=== PATIENT | female | born 1995 | race Caucasian/White ===

== ENCOUNTER → 2020-01-11 15:17 | Outpatient (BNVA) | payer OTHER, SELFPAY | PROVIDERS: PCP Family Medicine; Referring Provider Family Medicine; Visit Provider Physician Assistant | DX: R10.13 Epigastric pain (principal) | CPT/HCPCS: 99203 ==

== ENCOUNTER 2020-02-12 13:54 | Emergency (ER) | payer OTHER, SELFPAY ==
[2020-02-12 14:38] VITALS: BP 120/87; PULSE 80; RESP 18; TEMP 36.7; O2SAT 100; BMI 33.0
--- NOTE | 2020-02-12 14:47 | ED_ITS ---
HPI - Head Injury General Chief complaint: Head Injury Stated complaint: HEAD INJ FELL DOWN STAIRS Time Seen by Provider: 02/12/20 14:39 Source: patient Mode of arrival: ambulatory Limitations: no limitations History of Present Illness HPI Narrative: 24-year-old female previously healthy here with headache status post mechanical fall today. Patient tells me she was the top of the stairs and had trip and fall falling down approximately 10 stairs and hitting her head at the bottom of the wood floor. Denies loss of consciousness. Denies pain. Tells me she continues to have a headache despite some giving it some time at home so she brought herself into the emergency department. She denies any nausea, vomiting, dizziness, vision changes. No previous history of concussions. MD Complaint: head injury Onset (ago): hour(s) Mechanism of Injury: fall Place: home Loss of Consciousness: no Location of injury: other (unsure ) Severity: moderate Quality: aching Radiation: none Other Injuries: none Context: other (none ) Associated symptoms: denies other symptoms Related Data Previous Rx's Medication Instructions Recorded dicyclomine 10 mg capsule 10 mg PO BID #60 cap 01/11/20 Allergies Allergy/AdvReac Type Severity Reaction Status Date / Time No Known Allergies Allergy Verified 02/12/20 14:42 [No Known Allergies*] Review of Systems Review of Systems: Yes all other systems are reviewed and are negative Constitutional: Constitutional: Reports no additional constitutional complaints, Denies body ache(s), Denies chills, Denies fever(s), Reports headache(s) and Denies weakness Eyes: Eyes: Reports no additional eye complaints and Denies change in vision ENT: Reports system reviewed and no additional complaints, except as documented, Denies dizziness, Reports headache(s), Denies nasal congestion, Denies nasal discharge and Denies neck pain Cardiovascular: Cardiovascular: Reports no additional cardiovascular complaints, Denies chest pain, Denies leg edema and Denies dyspnea Respiratory: Respiratory: Reports no additional respiratory complaints, Denies cough and Denies dyspnea Gastrointestinal: Gastrointestinal: Reports no additional gastrointestinal complaints, Denies abdominal pain, Denies diarrhea, Denies nausea and Denies vomiting Genitourinary: Genitourinary: Reports no additional female genitourinary complaints and Denies urinary incontinence Musculoskeletal: Musculoskeletal: Reports no additional musculoskeletal complaints, Denies back pain, Denies arthralgias, Denies joint swelling, Denies neck pain, Denies numbness and Denies tingling Integumentary/Breasts: Skin/Breast: Reports system reviewed and no additional complaints, except as docu and Denies rash Neurologic: Reports system reviewed and no additional complaints, except as documented, Denies Abnormal speech present, Denies dizziness, Reports hea dache(s), Denies numbness, Denies tingling and Denies weakness PMFSH Past Medical History Attestation statement: The following information was validated with the patient. Source: old records reviewed and nursing notes reviewed Medical History Abdominal pain Juvenile arthritis Family History Family History Father Unknown family medical history Mother No problems noted. 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 Physical Exam Vital Signs: Vital Signs: Last Vital Signs Temp 98.0 F 02/12/20 14:38 Pulse 70 02/12/20 15:52 Resp 18 02/12/20 15:52 BP 115/70 02/12/20 15:52 Pulse Ox 100 02/12/20 15:52 Body Mass Index 33.0 Const: General: cooperative, healthy appearing, comfortable and no acute distress Orientation/consciousness: patient oriented x3 Limitations: no limitations HENMT: Head: Yes normal to inspection Ears: hearing grossly normal bilaterally General nose exam: Normal external nose present Face and sinus: Yes normal facial exam Mouth: Normal oral and palatal mucosa present Throat: Yes posterior oropharynx normal Eyes: General: appearance normal, both eyes and all related structures Pupils: Equal, round and reactive pupils present Neck: Neck: Yes normal visual inspection Chest: Chest palpation & inspection: normal inspection of the chest Resp: Effort & Inspection: normal respiratory effort Auscultation: clear to auscultation bilaterally Cardio: Rate: regular rate Rhythm: regular rhythm Peripheral pulses: Peripheral pulses 2+ throughout GI: Inspection: Yes normal to inspection Palpation (GI): Soft to palpation and nontender Auscultation: normal bowel sounds Back/Spine/Pelvis: Thoracic/Lumbar Spine: thoracic and lumbar spine normal to inspection Skin: General skin exam: no rashes or lesions noted Neuro: General: patient oriented x3, Normal light touch and pain sensation, no focal motor deficits and normal sensation to monofilament Cranial nerves: Yes CN's II-XII intact bilaterally, Yes Equal, round and reactive pupils present, Yes Bilaterally intact EOM present, Yes Nystagmus not present, Yes Normal facial strength present and Yes Midline tongue present Cognition (Neuro): normal cognition Speech: No Abnormal speech present Gait exam (Neuro): Normal gait present Motor exam (neuro): 5/5 motor strength present throughout Sensory Exam: Normal double simultaneous stimulation for sensation Coordination: [id number] test normal, [id number] test normal and tandem gait normal Extrem: General: Yes normal to inspection Course Course Course Narrative: 24-year-old female here with headache after mechanical fall hitting her head. Will check CT head. Will need urine prior to imaging. 1600- imaging negative. Likely contusion. Reviewed worrisome signs and symptoms with head injury care. Comfortable discharge home. MDM - Head Injury MDM Narrative Medical decision making narrative: Contusion, concussion, ICH Medical Records Attestation: I reviewed the patient's medical records. Lab Data Attestation: I reviewed the patient's lab results. Labs: Lab Results 02/12/20 Range/Units 15:00 Urine Test NEGATIVE (NEGATIVE) Imaging Data CT scan - head: Attestation: I personally reviewed and interpreted this imaging study as follows: Radiologist's impression: EXAMINATION: CT HEAD WITHOUT CONTRAST CLINICAL INFORMATION: Fall, trauma. COMPARISON: None TECHNIQUE: Contiguous axial imaging was performed from the skull base to vertex without intravenous administration of contrast. This CT examination was performed using dose optimization techniques as appropriate, variously including the following: *Automated exposure control *Adjustment of mA and/or kV according to patient size (this includes techniques or standardized protocols for targeted exams where dose is matched to indication/reason for exam; i.e. extremities or head) *Use of iterative reconstruction technique DLP: 717 mGy-cm FINDINGS: There is no evidence of acute intracranial hemorrhage or territorial infarction. No abnormal mass effect or midline shift is seen. Miller to white matter differentiation is well preserved. No extra-axial fluid collections are identified. The ventricles are normal in size. There is no abnormal attenuation within the brain parenchyma. The osseous structures and soft tissues are normal. There is mild mucoperiosteal thickening left maxillary sinus. Rest of the paranasal sinuses are well expanded and clear. No scalp abnormality seen. CT/CT head/brain wo con IMPRESSION: No acute intracranial process seen. Mild left maxillary sinus inflammatory changes. Discharge Plan Discharge Clinical Impression: Closed head injury Patient Disposition: Home, Self-Care Instructions: Head Injury (ED) Additional Instructions: Limit screen time. Get plenty of rest in a cold dark room Take Motrin or Tylenol as needed for pain Follow-up with her primary care doctor at the end of the week if still continued to have symptoms Prescriptions: No Action dicyclomine 10 mg capsule 10 mg PO BID Qty: 60 RF: 3 Referrals: Arun Hart MD [Primary Care Provider] - 2 days Stand Alone Forms: Work/School Release
[2020-02-12 15:16] LABS: UPreg QC Valid YES; Urine Pregnancy NEGATIVE (NEGATIVE)
--- NOTE | 2020-02-12 15:19 | CT_ITS ---
EXAMINATION: CT HEAD WITHOUT CONTRAST CLINICAL INFORMATION: Fall, trauma. COMPARISON: None TECHNIQUE: Contiguous axial imaging was performed from the skull base to vertex without intravenous administration of contrast. This CT examination was performed using dose optimization techniques as appropriate, variously including the following: *Automated exposure control *Adjustment of mA and/or kV according to patient size (this includes techniques or standardized protocols for targeted exams where dose is matched to indication/reason for exam; i.e. extremities or head) *Use of iterative reconstruction technique DLP: 717 mGy-cm FINDINGS: There is no evidence of acute intracranial hemorrhage or territorial infarction. No abnormal mass effect or midline shift is seen. Miller to white matter differentiation is well preserved. No extra-axial fluid collections are identified. The ventricles are normal in size. There is no abnormal attenuation within the brain parenchyma. The osseous structures and soft tissues are normal. There is mild mucoperiosteal thickening left maxillary sinus. Rest of the paranasal sinuses are well expanded and clear. No scalp abnormality seen. CT/CT head/brain wo con IMPRESSION: No acute intracranial process seen. Mild left maxillary sinus inflammatory changes.
[2020-02-12 15:52] VITALS: BP 115/70; PULSE 70; RESP 18; O2SAT 100
--- NOTE | 2020-02-12 15:53 | PC.NURSE ---
awiaiting ct results. pt denies need for pain control at this time
== END 2020-02-12 16:23 | disposition home or self-care (01) ==
PROVIDERS: Nurse Practitioner Family; Emergency Provider Emergency Medicine Emergency Medical Services; PCP Family Medicine
DX: S09.90XA Unspecified injury of head, initial encounter (principal); G44.309 Post-traumatic headache, unspecified, not intractable; W10.9XXA Fall (on) (from) unspecified stairs and steps, initial encounter; Y93.9 Activity, unspecified; Y92.009 Unspecified place in unspecified non-institutional (private) residence as the place of occurrence of the external cause; Y99.9 Unspecified external cause status
CPT/HCPCS: 70450; 81025; 99284

== ENCOUNTER 2020-03-13 14:13 | Outpatient (REF) | payer OTHER, SELFPAY ==
[2020-03-13 15:56] LABS: HCG Quantitative < 2 mIU/mL; TSH reflex Free T4 1.46 mIU/mL (0.32-4.0)
== END 2020-03-13 14:14 | disposition home or self-care (01) ==
LOC: HO.LAB 14:13
PROVIDERS: Visit Provider Family Medicine
DX: R79.89 Other specified abnormal findings of blood chemistry (principal)
CPT/HCPCS: 84443; 84702

== ENCOUNTER 2020-04-17 11:13 | Outpatient (REF) | payer OTHER, SELFPAY ==
[2020-04-17 13:45] LABS: Syphilis Screen Nonreactive (Nonreactive)
[2020-04-18 04:45] LABS: HBc Num1 0.06 S/CO (0.00-0.79); HIV AB/AG Nonreactive (Nonreactive); HIV Num 1 0.06 S/CO (0.00-0.99); Hepatitis B Core Antibody Nonreactive (Nonreactive); ~HepC Num1 0.09 S/CO (0.00-0.79); ~Hepatitis C Antibody Nonreactive (Nonreactive)
[2020-04-18 10:27] LABS: C. trachomatis RNA TMA NOT DETECTED (NOT DETECTED); N. gonorrhoeae RNA TMA NOT DETECTED (NOT DETECTED)
== END 2020-04-17 11:14 | disposition home or self-care (01) ==
LOC: HO.LAB 11:13
PROVIDERS: PCP Family Medicine; Visit Provider Advanced Practice Midwife
DX: Z01.419 Encounter for gynecological examination (general) (routine) without abnormal findings (principal); Z11.3 Encounter for screening for infections with a predominantly sexual mode of transmission
CPT/HCPCS: 36415; 86704; 86780; 86803; 87389; 87491; 87591; 88142

== ENCOUNTER 2020-09-04 09:07 | Outpatient (REF) | payer OTHER, SELFPAY ==
[2020-09-05 08:58] LABS: Rubella IgG Antibody 1.82 Index; Rubeola IgG (Measles) >300.00 AU/mL
== END 2020-09-04 09:08 | disposition home or self-care (01) ==
LOC: HO.WFDLDS 09:07
PROVIDERS: Visit Provider Family Medicine
DX: Z01.84 Encounter for antibody response examination (principal)
CPT/HCPCS: 36415; 86735; 86762; 86765

== ENCOUNTER 2021-07-17 17:55 | Emergency (ER) | payer OTHER, SELFPAY ==
--- NOTE | 2021-07-17 | ECG_ITS ---
Test Reason : CHEST PAIN Blood Pressure : / mmHG Vent. Rate : 075 BPM Atrial Rate : 075 BPM P-R Int : 190 ms QRS Dur : 090 ms QT Int : 370 ms P-R-T Axes : 024 059 029 degrees QTc Int : 413 ms Normal sinus rhythm Possible Left atrial enlargement Borderline ECG When compared with ECG of 14-OCT-2019 10:49, No significant change was found Referred By: Generic ED Physician Electronically Signed By:DEBORAH HERNANDEZ
[2021-07-17 19:27] VITALS: BP 129/65; PULSE 77; RESP 16; TEMP 37.1; O2SAT 100; BMI 48.7
[2021-07-17 19:49] LABS: MANUAL DIFF FLAG NO
[2021-07-17 19:51] LABS: Basophils Percent Auto 0.3 % (0-2); Eosinophils Absolute Auto 0.3 X10*3/uL (0.0-0.4); Hematocrit 32.4 % (37.0-47.0); Hemoglobin 9.6 g/dl (12.0-16.0); Imm Gran Abs Auto 0.03 X10*3/uL (0.00-0.03); Imm Gran Pct Auto 0.3 % (0.0-0.4); Lymphocytes Absolute Auto 3.9 X10*3/uL (1.2-4.9); Lymphocytes Percent Auto 36.8 % (20-40); Mean Corpuscular HGB Conc 29.6 g/dl (31.0-35.0); Mean Corpuscular Volume 74.1 fL (80.0-98.0); Mean Platelet Volume 10.1 fL (9.4-12.3); Monocytes Absolute Auto 0.5 X10*3/uL (0.1-1.2); Monocytes Percent Auto 4.5 % (2-11); Neutrophils Absolute Auto 5.8 x10*3/uL (2.0-8.3); Neutrophils Percent Auto 55.1 % (45-73); Platelet Count 265 X10*3/uL (160-400); Red Blood Count 4.37 X10*6/uL (4.20-5.50); Red Cell Distribution Width 16.4 % (11.0-16.0); White Blood Count 10.5 X10*3/uL (4.8-10.8)
[2021-07-17 20:06] LABS: Appearance Urine HAZY; Color Urine YELLOW; Glucose Urine UA NEG (NEG); Leukocyte Esterase Urine 1+ (NEG); Nitrite Urine NEG (NEG); PH 6.5 (5.0-8.0); UACC Culture Trigger YES; Urine Blood NEG (NEG); Urine Ketones NEG (NEG); Urine Protein NEG (NEG-TRACE)
[2021-07-17 20:07] LABS: Anion Gap 11 (12-20); Blood Urea Nitrogen 18 mg/dL (9-16); Calcium 9.4 mg/dL (8.4-10.2); Carbon Dioxide 28 mmol/L (22-29); Chloride 106 mmol/L (96-108); Estimated Glomerular Filt Rate > 60; Glucose Random 94 mg/dL (60-115); Sodium 141 mmol/L (135-145)
[2021-07-17 20:10] LABS: Troponin-I High Sensitivity < 3.5 ng/L (<3.5-17.0)
--- NOTE | 2021-07-17 20:17 | ED_ITS ---
HPI - Chest Pain General Chief Complaint: Chest Pain Stated Complaint: multiple complaints Time Seen by Provider: 07/17/21 20:17 Source: patient Mode of arrival: ambulatory Limitations: no limitations History of Present Illness HPI narrative: Patient 5 weeks post complaining of pain during urination and moving bowels with small amount of bright blood when wipes also has mucoid discharge from vagina without significant smell patient has a grade 3 vaginal tear when having vaginal delivery is constipated no fever no chills no back pain no abdominal pain Related Data Previous Rx's Medication Instructions Recorded desogestrel 0.15 mg-ethinyl 1 tab PO DAILY PRN #28 tab 04/17/20 estradiol 0.03 mg tablet (Apri) fluticasone propionate 50 1 spray INTRANASAL DAILY 30 Days 05/09/20 mcg/actuation nasal #16 g spray,suspension ibuprofen 400 mg tablet 400 mg PO Q8H PRN 30 Days #90 tab 05/09/20 cefpodoxime 200 mg tablet 200 mg PO BID #14 tab 07/17/21 hydrocortisone acetate 25 mg 25 mg IA BID #12 ea 07/17/21 rectal suppository (Anusol-HC) omeprazole 40 mg capsule,delayed 40 mg PO DAILY #30 cap 07/17/21 release polyethylene glycol 3350 17 17 g PO DAILY #510 g 07/17/21 gram/dose oral powder (Miralax) Allergies Allergy/AdvReac Type Severity Reaction Status Date / Time No Known Allergies Allergy Verified 05/09/20 10:53 [No Known Allergies*] Review of Systems Review of Systems: Yes all other systems are reviewed and are negative [facility] Past Medical History Medical History (Updated 07/18/21 @ 00:01 by Erik Beebe) Abdominal pain Juvenile arthritis Surgical History (Updated 05/20/20 @ 13:17 by NAVID Smith) No pertinent past surgical history Family History Family History Father Unknown family medical history Mother No problems noted. 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 Oriented X3. No acute distress. ENT: Pharynx normal. Oral Mucosa moist Neck: Normal inspection. Neck supple. CVS: Normal heart rate and rhythm. Pulses normal. Respiratory: No respiratory distress. Abdomen: Soft and mild suprapubic tenderness Bowel sounds are present, no mass palpable, no CVA tenderness Skin: Skin warm and dry. Normal skin color. Normal skin turgor. Extremities: No lower extremity edema. No calf tenderness Neuro: Oriented X 3. MDM - Chest Pain MDM Narrative Medical decision making narrative: Patient with UTI and likely has internal hemorrhoids which causing the rectal bleed. Will discharge patient home on antibiotics and Anusol suppository advised to follow-up with PCP Lab Data Attestation: I reviewed the patient's lab results. Result diagrams: 07/17/21 19:45 07/17/21 19:45 Labs: Lab Results 07/17/21 07/17/21 07/17/21 Range/Units 19:45 19:45 19:45 WBC 10.5 (4.8-10.8) X10*3/uL RBC 4.37 (4.20-5.50) X10*6/uL Hgb 9.6 L (12.0-16.0) g/dl Hct 32.4 L (37.0-47.0) % MCV 74.1 L (80.0-98.0) fL MCH 22.0 L (27.0-33.0) pg MCHC 29.6 L (31.0-35.0) g/dl RDW 16.4 H (11.0-16.0) % Plt Count 265 (160-400) X10*3/uL MPV 10.1 (9.4-12.3) fL Immature Gran % (Auto) 0.3 (0.0-0.4) % Neut % (Auto) 55.1 (45-73) % Lymph % (Auto) 36.8 (20-40) % [place] % (Auto) 4.5 (2-11) % Eos % (Auto) 3.0 (0-4) % Baso % (Auto) 0.3 (0-2) % Lymph # (Auto) 3.9 (1.2-4.9) X10*3/uL [place] # (Auto) 0.5 (0.1-1.2) X10*3/uL Eos # (Auto) 0.3 (0.0-0.4) X10*3/uL Baso # (Auto) 0.0 (0.0-0.2) X10*3/uL Abs Immat Gran (auto) 0.03 (0.00-0.03) X10*3/uL Absolute Neuts (auto) 5.8 (2.0-8.3) x10*3/uL Absolute Nucleated RBC 0.000 (0.0-0.012) X10*3/uL Nucleated RBC % (auto) 0.0 (0.0-0.2) /100WBC Sodium 141 (135-145) mmol/L Potassium 4.0 (3.3-5.1) mmol/L Chloride 106 (96-108) mmol/L Carbon Dioxide 28 (22-29) mmol/L Anion Gap 11 L (12-20) BUN 18 H (9-16) mg/dL Creatinine 1.00 (0.5-1.4) mg/dL Estim Creat Clear Calc 142.0 Estimated GFR > 60 Random Glucose 94 (60-115) mg/dL Calcium 9.4 (8.4-10.2) mg/dL Total Bilirubin 0.2 (0.0-1.0) mg/dL Direct Bilirubin < 0.2 (0.0-0.5) mg/dL AST 20 (5-31) U/L ALT 17 (0-31) U/L Alkaline Phosphatase 115 (39-117) U/L Troponin I High Sens < 3.5 (<3.5-17.0) ng/L Total Protein 7.6 (6.5-8.0) g/dL Albumin 4.0 (3.5-5.0) g/dL Lipase 28 (8-78) U/L Urine Color Urine Appearance Urine pH (5.0-8.0) Ur Specific [place] (1.005-1.025) Urine Protein (NEG-TRACE) MG/DL Urine Glucose (UA) (NEG) MG/DL Urine Ketones (NEG) MG/DL Urine Blood (NEG) Urine Nitrite (NEG) Ur Leukocyte Esterase (NEG) Urine RBC (0) /HPF Urine WBC (0-4) /HPF Ur Squamous Epith Cells /LPF Urine Bacteria /LPF Urine Mucus /LPF 07/17/21 Range/Units 20:00 WBC (4.8-10.8) X10*3/uL RBC (4.20-5.50) X10*6/uL Hgb (12.0-16.0) g/dl Hct (37.0-47.0) % MCV (80.0-98.0) fL MCH (27.0-33.0) pg MCHC (31.0-35.0) g/dl RDW (11.0-16.0) % Plt Count (160-400) X10*3/uL MPV (9.4-12.3) fL Immature Gran % (Auto) (0.0-0.4) % Neut % (Auto) (45-73) % Lymph % (Auto) (20-40) % [place] % (Auto) (2-11) % Eos % (Auto) (0-4) % Baso % (Auto) (0-2) % Lymph # (Auto) (1.2-4.9) X10*3/uL [place] # (Auto) (0.1-1.2) X10*3/uL Eos # (Auto) (0.0-0.4) X10*3/uL Baso # (Auto) (0.0-0.2) X10*3/uL Abs Immat Gran (auto) (0.00-0.03) X10*3/uL Absolute Neuts (auto) (2.0-8.3) x10*3/uL Absolute Nucleated RBC (0.0-0.012) X10*3/uL Nucleated RBC % (auto) (0.0-0.2) /100WBC Sodium (135-145) mmol/L Potassium (3.3-5.1) mmol/L Chloride (96-108) mmol/L Carbon Dioxide (22-29) mmol/L Anion Gap (12-20) BUN (9-16) mg/dL Creatinine (0.5-1.4) mg/dL Estim Creat Clear Calc Estimated GFR Random Glucose (60-115) mg/dL Calcium (8.4-10.2) mg/dL Total Bilirubin (0.0-1.0) mg/dL Direct Bilirubin (0.0-0.5) mg/dL AST (5-31) U/L ALT (0-31) U/L Alkaline Phosphatase (39-117) U/L Troponin I High Sens (<3.5-17.0) ng/L Total Protein (6.5-8.0) g/dL Albumin (3.5-5.0) g/dL Lipase (8-78) U/L Urine Color YELLOW Urine Appearance HAZY Urine pH 6.5 (5.0-8.0) Ur Specific [place] 1.010 (1.005-1.025) Urine Protein NEG (NEG-TRACE) MG/DL Urine Glucose (UA) NEG (NEG) MG/DL Urine Ketones NEG (NEG) MG/DL Urine Blood NEG (NEG) Urine Nitrite NEG (NEG) Ur Leukocyte Esterase 1+ H (NEG) Urine RBC 0-2 (0) /HPF Urine WBC 10-14 H (0-4) /HPF Ur Squamous Epith Cells TRACE /LPF Urine Bacteria NONE /LPF Urine Mucus TRACE /LPF Discharge Plan Discharge Clinical Impression: UTI (urinary tract infection), Gastritis, Bleeding hemorrhoid Patient Disposition: Home, Self-Care Instructions: Gastritis (ED), Hemorrhoids (ED), Urinary Tract Infection in Women (DC) Additional Instructions: Drink plenty of fluids Avoid constipation/straining, avoid fried food Use Anusol suppository twice daily for 5 days Follow-up with surgeon if not better Prescriptions: New omeprazole 40 mg capsule,delayed release(DR/EC) 40 mg PO DAILY Qty: 30 0RF polyethylene glycol 3350 [Miralax] 17 gram/dose powder 17 g PO DAILY Qty: 510 0RF hydrocortisone acetate [Anusol-HC] 25 mg suppository 25 mg IA BID Qty: 12 0RF cefpodoxime 200 mg tablet 200 mg PO BID Qty: 14 0RF Rx Instructions: must administer with a meal/food No Action fluticasone propionate 50 mcg/actuation spray,suspension 1 spray intranasal DAILY 30 Days Qty: 16 7RF Rx Instructions: administer into each nostril ibuprofen 400 mg tablet 400 mg PO Q8H PRN (Reason: pain) 30 Days Qty: 90 1RF Rx Instructions: I advised her the ibuprofen should be taken with food or milk. desogestrel-ethinyl estradiol [Apri] 0.15-0.03 mg tablet 1 tab PO DAILY PRN (Reason: cycle control) Qty: 28 4RF Interventions: ED Discharge Assessment Last Done: 07/17/21 23:01 Discharge Date/Time: 07/17/21 23:01
[2021-07-17 20:23] LABS: Mucus Urine TRACE /LPF; RBC Urine 0-2 /HPF (0); Squamous Epithelial Cell Urine TRACE /LPF
[2021-07-17 20:26] VITALS: BP 108/66; PULSE 77; RESP 16; TEMP 36.8; O2SAT 100
[2021-07-17] MEDS: traMADoL HCL 50 MG TABLET PO (20:32)
[2021-07-17] MEDS: Magnesium Hydrox/Alum Hydrox 30 ML ORAL.SUSP PO (20:32)
[2021-07-17] MEDS: Omeprazole 40 MG CAPSULE.DR PO (20:33)
[2021-07-17 20:41] LABS: Alanine Aminotransferase 17 U/L (0-31); Alkaline Phosphatase 115 U/L (39-117); Aspartate Amino Transferase 20 U/L (5-31); Bilirubin Direct < 0.2 mg/dL (0.0-0.5); Bilirubin Total 0.2 mg/dL (0.0-1.0); Lipase 28 U/L (8-78); Total Protein 7.6 g/dL (6.5-8.0)
[2021-07-17 22:22] VITALS: BP 113/65; PULSE 76; RESP 20; TEMP 36.9; O2SAT 99
== END 2021-07-17 23:01 | disposition home or self-care (01) ==
PROVIDERS: Emergency Medicine; Emergency Provider Internal Medicine; PCP Hospitalist
DX: O86.20 Urinary tract infection following delivery, unspecified (principal); N39.0 Urinary tract infection, site not specified; O99.63 Diseases of the digestive system complicating the puerperium; K29.70 Gastritis, unspecified, without bleeding; O87.2 Hemorrhoids in the puerperium
CPT/HCPCS: 36415; 80048; 80076; 81001; 83690; 84484; 85025; 87086; 93005; 99283; 99284

== ENCOUNTER 2021-12-01 15:43 | Outpatient (REF) | payer OTHER, SELFPAY | END 2021-12-01 15:44 | disposition home or self-care (01) | LOC: HO.LNP 15:43 | PROVIDERS: Visit Provider Advanced Practice Midwife | DX: Z13.89 Encounter for screening for other disorder (principal) ==

== ENCOUNTER 2021-12-01 15:57 | Outpatient (REF) | payer OTHER, SELFPAY ==
[2021-12-01 17:57] LABS: HCG Quantitative < 2 mIU/mL; Thyroid Stimulating Hormone 1.25 uIU/mL (0.32-4.0)
[2021-12-02 05:23] LABS: CT PCR NOT DETECTED (Not Detect.); NG PCR NOT DETECTED (Not Detect.)
[2021-12-02 09:03] LABS: DHEA Sulfate 71 mcg/dL (14-349); Follicle Stimulating Hormone 14.4 mIU/mL; Prolactin 5.6 ng/mL
[2021-12-05 20:41] LABS: Testosterone, Free 2.2 pg/mL (0.1-6.4); Testosterone, Total 13 ng/dL (2-45)
== END 2021-12-01 15:58 | disposition home or self-care (01) ==
LOC: HO.LAB 15:57
PROVIDERS: PCP Hospitalist; Visit Provider Advanced Practice Midwife
DX: Z11.3 Encounter for screening for infections with a predominantly sexual mode of transmission (principal); N91.5 Oligomenorrhea, unspecified
CPT/HCPCS: 36415; 82627; 83001; 83498; 84146; 84402; 84403; 84443; 84702; 85027; 87491; 87591

== ENCOUNTER 2022-01-07 08:28 | Outpatient (REF) | payer OTHER, SELFPAY ==
[2022-01-07 11:57] LABS: Hematocrit 35.2 % (37.0-47.0); Hemoglobin 10.1 g/dl (12.0-16.0); Mean Corpuscular HGB Conc 28.7 g/dl (31.0-35.0); Mean Corpuscular Hemoglobin 19.9 pg (27.0-33.0); Mean Corpuscular Volume 69.3 fL (80.0-98.0); Mean Platelet Volume 11.3 fL (9.4-12.3); Platelet Count 308 X10*3/uL (160-400); Red Blood Count 5.08 X10*6/uL (4.20-5.50); Red Cell Distribution Width 17.2 % (11.0-16.0); White Blood Count 8.1 X10*3/uL (4.8-10.8)
[2022-01-07 12:33] LABS: Alanine Aminotransferase 15 U/L (0-31); Albumin Level 3.9 g/dL (3.5-5.0); Alkaline Phosphatase 73 U/L (39-117); Anion Gap 14 (12-20); Aspartate Amino Transferase 16 U/L (5-31); Bilirubin Total 0.3 mg/dL (0.0-1.0); Blood Urea Nitrogen 18 mg/dL (9-16); Carbon Dioxide 22 mmol/L (22-29); Chloride 109 mmol/L (96-108); Cholesterol 128 mg/dL; Estimated Glomerular Filt Rate > 60; Glucose Random 94 mg/dL (60-115); HDL Cholesterol 31 mg/dL; LDL Cholesterol Calculated 72 mg/dl; Sodium 141 mmol/L (135-145); Total Protein 7.2 g/dL (6.5-8.0); Triglycerides 128 mg/dL
[2022-01-07 12:58] LABS: TSH reflex Free T4 1.64 uIU/mL (0.32-4.0)
== END 2022-01-07 08:29 | disposition home or self-care (01) ==
LOC: HO.WFDLDS 08:28
PROVIDERS: Visit Provider Hospitalist
DX: Z00.00 Encounter for general adult medical examination without abnormal findings (principal); D64.9 Anemia, unspecified
CPT/HCPCS: 36415; 80053; 80061; 84443; 85027

== ENCOUNTER 2022-12-17 11:21 | Outpatient (AMB) | payer OTHER, SELFPAY ==
[2022-12-17 11:34] VITALS: BP 110/70; BMI 38.7
--- NOTE | 2022-12-17 11:34 | MHC.OFFVIS ---
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 Scribed for KASI Pérez by Laurie Shaikh medical office coordinator, on 12/17/2022 at 11:49 am EST. Fire Management Officer: Fire Management Officer Present (Allison) Allergies No Known Allergies [No Known Allergies*] Allergy (Verified 12/17/22 11:35) Is last menstrual period known: Yes Last menstrual period: 12/01/22 HPI HPI Comments History of Present Illness Details She is a premenopausal woman presenting for annual exam. She admits to eating healthy and tries to stay active with exercise. Currently sexually active. Is interested in BC. Denies vaginal itching and irritation. STD screening and blood work offered; she accepts. Denies family hx of colon and ovarian cancer. Last pap smear 04/17/20. She denies any contraindications to control such as: migraines with aura, history of DVT or pulmonary emboli, high blood pressure, liver disease, thrombolic disorders, Lupus, +HUMBLE, or smoking. [facility] Medical History BMI 38.0-38.9,adult Abdominal pain Juvenile arthritis Surgical History No pertinent past surgical history Family History Father Unknown family medical history Mother No problems noted. 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 Sexual orientation: Straight/Heterosexual Female Reproductive History Menstrual Age of Menarche: 15 Date of last menstrual period: 12/01/22 control method: none Total pregnancies: 1 Full term: 1 Number of Living Children: 1 Date of last pap smear: 04/17/20 (neg) Physical Exam Vital Signs: Last Vital Signs BP 110/70 12/17/22 11:34 BMI result Body Mass Index 38.7 Const General: cooperative, healthy appearing, no acute distress, well developed and alert Orientation/consciousness: patient oriented x3 HEENT Head: Yes normal to inspection Eyes General: appearance normal, both eyes and all related structures Neck Neck: Yes normal visual inspection Thyroid: Thyroid normal Chest Chest palpation & inspection: normal inspection of the chest Breast/axilla inspection: normal inspection of the breasts (no puckering, dimpling, peau de orange, retraction, discharge, masses) Breast/axilla palpation: normal palpation of the breasts Resp Effort & Inspection: normal respiratory effort GI Inspection: Yes normal to inspection Palpation (GI): Soft to palpation (to palpation) Rectal Exam - Female: deferred General: Yes bladder normal to inspection External Female Exam: normal external appearance and normal appearance of the urethra Speculum Exam - Vagina: normal appearance of the vagina, normal palpation and abnormal vaginal discharge frothy Speculum Exam - Cervix: normal appearance of the cervix and normal palpation Bimanual exam- vagina & uterus: normal palpation and normal palpation Bimanual Exam- Adnexa, other: normal adnexae and no masses Skin General skin exam: no rashes or lesions noted Neuro General: patient oriented x3 Cognition (Neuro): normal cognition Extrem General: Yes normal to inspection Psych Attitude: cooperative Thought process: Normal thought process present Assessment & Plan Assessment & Plan (1) Encounter for well woman exam: Code(s): Z01.419 - Encounter for gynecological examination (general) (routine) without abnormal findings Plan: Discussed: Current recommendations for pap smears per ASCCP guidelines. Breast awareness and periodic self breast exams. Maintaining a healthy lifestyle including a well balanced diet and routine exercise. All of her questions and concerns were addressed to the best of my ability. RTO in one year for AG. (2) control counseling: Code(s): Z30.09 - Encounter for other general counseling and advice on contraception Plan: Reviewed risks and benefits of different BC options with use of the CDC Effectiveness chart, and IUD booklets/models. Encouraged to use condoms for STD and prevention. Schedule a BC consult for final decision. (3) Potential exposure to STD: Code(s): Z20.2 - Contact with and (suspected) exposure to infections with a predominantly sexual mode of transmission Plan: BV testing and GC/CT panel today. STD blood work ordered. Await results and treat accordingly. Orders: Orders CT NG by PCR Today N89.8 - Other specified noninflammatory disorders of vagina, Z20.2 - Contact with and (suspected) exposure to infections with a predominantly sexual mode of transmission Hepatitis B Core Antibody Today Z20.2 - Contact with and (suspected) exposure to infections with a predominantly sexual mode of transmission HIV Ab/Ag Today Z20.2 - Contact with and (suspected) exposure to infections with a predominantly sexual mode of transmission Bacterial Vaginosis Panel Today N89.8 - Other specified noninflammatory disorders of vagina, Z20.2 - Contact with and (suspected) exposure to infections with a predominantly sexual mode of transmission Hepatitis C Antibody Today Z20.2 - Contact with and (suspected) exposure to infections with a predominantly sexual mode of transmission Syphilis Screen Today Z20.2 - Contact with and (suspected) exposure to infections with a predominantly sexual mode of transmission Coding Level of Care Code Est Pt Prev Care 18-39y([id number]) Diagnoses Encounter for well woman exam Z01.419 control counseling Z30.09 Potential exposure to STD Z20.2
== END 2022-12-17 12:09 | disposition home or self-care (01) ==
PROVIDERS: Visit Provider Advanced Practice Midwife
DX: Z01.419 Encounter for gynecological examination (general) (routine) without abnormal findings (principal); Z30.09 Encounter for other general counseling and advice on contraception; Z20.2 Contact with and (suspected) exposure to infections with a predominantly sexual mode of transmission
CPT/HCPCS: 99395

== ENCOUNTER 2022-12-17 11:21 | Outpatient (REF) | payer OTHER, SELFPAY ==
[2022-12-17 17:25] LABS: CT PCR NOT DETECTED (Not Detect.); NG PCR NOT DETECTED (Not Detect.)
[2022-12-18 11:15] LABS: BV Int Neg Control Negative (Negative); BV Int Pos Control Positive (Positive)
== END 2022-12-17 11:22 | disposition home or self-care (01) ==
LOC: HO.LNP 11:21
PROVIDERS: Visit Provider Advanced Practice Midwife
DX: Z01.419 Encounter for gynecological examination (general) (routine) without abnormal findings (principal); Z20.2 Contact with and (suspected) exposure to infections with a predominantly sexual mode of transmission; N89.8 Other specified noninflammatory disorders of vagina
CPT/HCPCS: 0353U; 87480; 87510; 87660; 99395

== ENCOUNTER 2022-12-17 11:55 | Outpatient (REF) | payer OTHER, SELFPAY | END 2022-12-17 11:56 | disposition home or self-care (01) | LOC: HO.LAB 11:55 | PROVIDERS: Visit Provider Advanced Practice Midwife | DX: Z13.89 Encounter for screening for other disorder (principal) ==

== ENCOUNTER → 2022-12-30 08:37 | Outpatient (BNVA) | payer OTHER, SELFPAY | PROVIDERS: PCP Hospitalist; Visit Provider Physician Assistant Surgical ==

== ENCOUNTER 2023-02-16 08:19 | Outpatient (AMB) | payer OTHER, SELFPAY ==
--- NOTE | 2023-02-16 08:20 | A.OFFVIS_ITS ---
Intake Vital Signs 02/16/23 08:21 Height 5 ft 10 in Weight 276 lb BMI 39.6 BP 100/60 Intake Visit Reasons: control consult Intake Note: Scribed for Lurdes Momin CNM by [facility] scribe, on 02/16/2023 at 8:30 AM, EST. Allergies No Known Allergies [No Known Allergies*] Allergy (Verified 02/16/23 09:31) Is last menstrual period known: Yes Last menstrual period: 02/08/23 HPI HPI Comments History of Present Illness Details Patient is here today for control consult. She would like to sta rt control pills, has used them in the past. LMP 02/08, normal menses. Currently has an intimate partner. She denies any contraindications to control such as: migraines with aura, history of DVT or pulmonary emboli, high blood pressure, liver disease, thrombolic disorders, Lupus, +HUMBLE, breast cancer, or smoking. [facility] Medical History BMI 38.0-38.9,adult Abdominal pain Juvenile arthritis Surgical History No pertinent past surgical history Family History Father Unknown family medical history Mother No problems noted. 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 Orientation/consciousness: patient orientated x 3. General: cooperative, healthy appearing and no acute distress Orientation/consciousness: patient oriented x3 Neuro General: patient oriented x3 Assessment & Plan Assessment & Plan (1) control counseling: Code(s): Z. - Encounter for other general counseling and advice on contraception Plan: Control Counseling Use and side effects of control: Instructed to start the pill within the first 5 days of the menstrual period. Recommended to take pill at same time every day and with food to prevent stomach upset. Switch to bedtime intake with food if still experiencing nausea. Consider setting the cell phone for alerts as a reminder to take the pill at the same time. Use a back up method (condoms or abstinence if needed) if any late or missed doses until the end of the pill pack. Take the dose as soon as possible, and take your regular pill on time. If you miss the pill often, then consider another option of control. Always use condoms for STI prevention if indicated. Instructed patient to take for at least 3 months the body is acclimated to it. Most side effects go away with time in the first three months. Warnings: go to ED if and loss of vision/blindness, severe headache, chest pain or difficulty breathing, severe abdominal pain, or any pain or swelling in an extremity. Return in 3 months for pill check, or sooner if any concerns. All of her questions and concerns were addressed to the best of my ability and shared decision making. She is agreeable to plan of care. Medications: New desogestrel-ethinyl estradiol 0.15-0.03 mg (Apri) 1 tab PO DAILY 84 tabs 1RF 28 days Coding Level of Care Code Est Pt Level 3 (44519) Diagnoses control counseling
[2023-02-16 08:21] VITALS: BP 100/60; BMI 39.6
== END 2023-02-16 08:59 | disposition home or self-care (01) ==
PROVIDERS: PCP Hospitalist; Visit Provider Advanced Practice Midwife
DX: Z30.09 Encounter for other general counseling and advice on contraception (principal)
CPT/HCPCS: 99213

== ENCOUNTER → 2023-02-16 08:19 | Outpatient (BNVA) | payer OTHER, SELFPAY | PROVIDERS: PCP Hospitalist; Visit Provider Advanced Practice Midwife | DX: Z30.09 Encounter for other general counseling and advice on contraception (principal) | CPT/HCPCS: 99212 ==

== ENCOUNTER 2023-02-17 11:37 | Outpatient (AMB) | payer OTHER, SELFPAY ==
--- OUTSIDE RECORDS SUMMARY | 2023-02-17 11:39 | XMS_ITS | Continuity of Care Document ---
Author Name Unknown Organization [facility] Address [address] [place] [address], [address] [place] [address]- Care Team Providers Care Refractory Manager Name Role Phone Funmilayo FELIPE, Amalia La Primary Care Physician [phone] [place] [facility] - 02/25/22 [facility] [employer] [facility] [address] [facility], [address] [place], [place] [address] Attending Physician: Carol Espinosa MD Admitting Physician: Carol Espinosa MD Referring Physician: Amalia Mello NP Allergies, Adverse Reactions, Alerts No Known Allergies Immunizations Given and Recorded Vaccine Date Status Refusal Reason SARS-CoV-2 mRNA ([id number]) vax 07/23/21 Given tetanus/diphtheria/pertussis, acel(Tdap) 03/19/21 Given tetanus/diphtheria/pertussis, acel(Tdap) 02/20/14 Given influenza virus vaccine, inactivated 01/21/21 Give n influenza virus vaccine, inactivated 12/17/16 Give n influenza virus vaccine, inactivated 02/20/14 Give n influenza virus vaccine, inactivated 02/09/13 Give n influenza virus vaccine, inactivated 1 01/21/12 Gi rafael influenza virus vaccine, inactivated 2 01/12/11 Gi rafael influenza virus vaccine, inactivated 3 12/19/08 Gi rafael SARS-CoV-2 (COVID-19) mRNA BNT-162b2 vac 05/29/20 Recorded SARS-CoV-2 (COVID-19) mRNA BNT-162b2 vac 05/08/20 Recorded Meningococcal Conjugate Vaccine 02/20/14 Given Meningococcal Conjugate Vaccine 4 11/16/07 Given Human Papillomavirus Vaccine 5 05/01/07 Given Human Papillomavirus Vaccine 6 01/21/07 Given Human Papillomavirus Vaccine 7 11/15/06 Given tetanus-diphtheria toxoids (Td) 8 12/24/04 Given pneumococcal 7-valent vaccine 9 02/26/03 Given pneumococcal 7-valent vaccine 10 12/26/02 Given pneumococcal 7-valent vaccine 11 10/27/02 Given pneumococcal 7-valent vaccine 12 06/03/00 Given Measles/Mumps/Rubella Virus Vaccine 13 05/04/01 Gi rafael Measles/Mumps/Rubella Virus Vaccine 14 09/05/98 Gi rafael Poliovirus Vaccine, Inactivated 15 05/04/01 Given Poliovirus Vaccine, Inactivated 16 12/19/98 Given Poliovirus Vaccine, Inactivated 17 02/28/98 Given Poliovirus Vaccine, Inactivated 18 97 Given diphtheria/tetanus/pertussis, acel(DTaP) 19 05/04/01 Given diphtheria/tetanus/pertussis, acel(DTaP) 20 12/19/98 Given diphtheria/tetanus/pertussis, acel(DTaP) 21 05/07/98 Given diphtheria/tetanus/pertussis, acel(DTaP) 22 02/28/98 Given diphtheria/tetanus/pertussis, acel(DTaP) 23 97 Given Varicella Virus Vaccine 24 12/24/98 Given Varicella Virus Vaccine 25 09/05/98 Given Haemophilus B conjugate (HbOC) vaccine 26 12/19/98 Given Haemophilus B conjugate (HbOC) vaccine 27 09/05/98 Given Haemophilus B conjugate (HbOC) vaccine 28 05/07/98 Given Haemophilus B conjugate (HbOC) vaccine 29 97 Given hepatitis B pediatric vaccine 30 05/07/98 Given hepatitis B pediatric vaccine 31 97 Given hepatitis B pediatric vaccine 32 97 Given 1Admin Note: VIS 10/14/10 GIVEN 2Admin Note: vis 10/14/2010 3Admin Note: given by VALENTINA. 4Admin Note: ADM BY RONAK WALL RN VIS 02/04/2006 5Admin Note: VIS 04/23/06 ADM BY ZULY CHAUDHARI RN 6Admin Note: VIS 04/23/06 7Admin Note: VIS 04/23/06 8Admin Note: GIVEN BY NURSE 9Admin Note: GIVEN BY NURSE 10Admin Note: GIVEN BY NURSE 11Admin Note: GIVEN BY NURSE 12Admin Note: GIVEN BY NURSE 13Admin Note: GIVEN BY NURSE 14Admin Note: GIVEN BY NURSE 15Admin Note: GIVEN BY NURSE 16Admin Note: GIVEN BY NURSE 17Admin Note: GIVEN BY NURSE 18Admin Note: GIVEN BY NURSE 19Admin Note: GIVEN BY NURSE 20Admin Note: GIVEN BY NURSE 21Admin Note: GIVEN BY NURSE 22Admin Note: GIVEN BY NURSE 23Admin Note: GIVEN BY NURSE 24Admin Note: GIVEN BY NURSE 25Admin Note: GIVEN BY NURSE 26Admin Note: GIVEN BY NURSE 27Admin Note: GIVEN BY NURSE 28Admin Note: GIVEN BY NURSE 29Admin Note: GIVEN BY NURSE 30Admin Note: GIVEN BY NURSE 31Admin Note: GIVEN BY NURSE 32Admin Note: GIVEN BY NURSE Medications acetaminophen 325 mg oral tablet 650 mg, 2, tablet, By Mouth, 3 times a day, PRN, # 50 tablet, Refills 0, Tot. Refills 0, Maintenance, as needed for pain, 01/06/22 11:25:00 EDT, Route to Pharmacy Electronically, [id number], Partial fill upon patient request if the prescriptio... Start Date: 01/06/22 Status: Ordered Ojanna 0.35 mg oral tablet 1 tablet = 0.35 mg, By Mouth, Daily, # 30 tablet, 5 Refills, Maintenance, 06/14/21 5:17:00 EDT, Tablet, [id number], Partial fill upon patient request if the prescription is for a schedule II opioid drug., 178, cm, 06/14/21 2:48:00 EDT, Height,... Start Date: 06/14/21 Status: Ordered ibuprofen 600 mg oral tablet 600 mg, 1, tablet, By Mouth, Every 6 hours, # 50 tablet, Refills 0, Tot. Refills 0, Maintenance, 01/06/22 11:25:00 EDT, Route to Pharmacy Electronically, [id number], Partial fill upon patientrequest if the prescription is for a schedule II op... Start Date: 01/06/22 Status: Ordered Problem List Condition Confirmation Course Effective Dates Status Health St atus Informant H/O ADHD Confirmed 06/07/08 Active Fully Vaccinated/COVID-19 Confirmed 11/13/20 Active History of gestational hypertension Confirmed Active History of hemorrhage Confirmed Active Obese class II Confirmed Active Social History Social History Type Response Smoking Status Never smoker; Tobacc o user in household: No entered on: 05/20/17 Sex Patient Care team information Care Team Personnel Name: Amalia Mello NP Position: Reference Physician Member Role: PCP Address: Address: [address] [place] [address]- Care Team Related Persons Name: MARYBEL MACHADO Address: home [address] [place] [address] Name: VITA MORIN Address: [address] Address: home [address] [place] [address] Name: FAMILIA BARRERA Address: home [address] [place] [address]
--- OUTSIDE RECORDS SUMMARY | 2023-02-17 11:39 | XMS_ITS | Continuity of Care Document ---
Author Name Unknown Organization [facility] Address [address] [place] [address]- Care Team Providers Care Electrician Manager Name Role Phone Tanner PRADO, Arun Cross Primary Care Physician [phone] [facility]counter [facility] Date(s): 06/11/21 - 07/17/21 [facility] [address] [address] Attending Physician: Magdaleno Tinajero MD Admitting Physician: Magdaleno Tinajero MD Referring Physician: Laura Salomon CNM Allergies, Adverse Reactions, Alerts No Known Allergies Immunizations Given and Recorded Vaccine Date Status Refusal Reason tetanus/diphtheria/pertussis, acel(Tdap) 03/19/21 Given tetanus/diphtheria/pertussis, acel(Tdap) 02/20/14 [...] Refills 0, Maintenance, as needed for pain, 06/14/21 5:15:00 EDT, Route to Pharmacy Electronically, [id number], Partial fill upon patient request if the prescription... Start Date: 06/14/21 Status: Ordered acetaminophen 500 mg oral tablet 2 tablet = 1,000 mg, By Mouth, Every 8 hours, PRN as needed for pain or fever, (not to exceed 3000 mg/day), # 100 tablet, 1 Refills, Maintenance, 05/20/17 15:08:38, Discontinue naproxen ; itwas sent by error Start Date: 05/20/17 Status: Ordered Joanna 0.35 mg oral tablet 1 tablet = 0.35 mg, By Mouth, Daily, # 30 tablet, 5 Refills, Maintenance, 06/14/21 5:17:00 EDT, Tablet, [id number], Partial fill upon patient request if the prescription is for a schedule II opioid drug., 178, cm, 06/14/21 2:48:00 EDT, Height,... Start Date: 06/14/21 Status: Ordered ferrous sulfate 325 mg oral enteric coated tablet 325 mg, 1, tablet, By Mouth, Daily, # 90 tablet, Refills 0, Tot. Refills 0, Maintenance, 06/14/21 5:15:00 EDT, Route to Pharmacy Electronically, [facility]/pharmacy #[id number], Partial fill upon patient request if the prescription is for a schedule II opioid drug... Start Date: 06/14/21 Status: Ordered ferrous sulfate 325 mg oral tablet 1 tablet = 325 mg, By Mouth, Every other day, # 15 tablet, 5 Refills, Maintenance, 03/20/21 14:49:00 EST, [facility]/pharmacy #[id number], Partial fill upon patient request if the prescription is for a schedule II opioid drug., 176, cm, 03/19/21 9:08:00 EST, Angus... Start Date: 03/20/21 Stop Date: 09/16/21 Status: Ordered ibuprofen 600 mg oral tablet 600 mg, 1, tablet, By Mouth, Every 6 hours, # 50 tablet, Refills 0, Tot. Refills 0, Maintenance, 06/14/21 5:15:00 EDT, Route to Pharmacy Electronically, [facility]/pharm[id number], Partial fill upon patient request if the prescription is for a schedule II opi... Start Date: 06/14/21 Status: Ordered lidocaine 4% topical gel 1, Topically, Daily, # 1 each, 0 Refills, Maintenance, 06/27/21 10:33:00 EDT, [facility]/pharm[facility] #[id number], Partial fill upon patient request if the prescription is for a schedule II opioid drug., 1 Topically Daily, 178, cm, 06/27/21 10:19:00 EDT, Height, 124.1... Start Date: 06/27/21 Status: Ordered Multivitamins with Folic Acid 1 mg oral tablet 1 tablet, By Mouth, Daily, # 90 tablet, 2 Refills, Maintenance, 01/03/21 13:41:00 EDT, Tablet, [id number], Partial fill upon patient request if the prescription is for a schedule II opioid drug., 1 tablet By Mouth Daily, 176, cm, 12/24/20 8:54... Start Date: 01/03/21 Status: Ordered Vitamin C 500 mg oral tablet 1 tablet = 500 mg, By Mouth, Daily, # 90 tablet, 0 Refills, Maintenance, 06/14/21 5:15:00 EDT, Tablet, [id number], Partial fill upon patient request if the prescription is for a schedule II opioid drug., 178, cm, 06/14/21 2:48:00 EDT, Height,... Start Date: 06/14/21 Status: Ordered Problem List Condition Effective Dates Status Health Status Inform ant H/O ADHD(Confirmed) 06/07/08 Active Fully Vaccinated/COVID-19(Confirmed) 11/13/20 Active Obese class II(Confirmed) Active Social History Social History Type Response Smoking Status Never smoker; Tobacc o user in household: No entered on: 05/20/17 Sex
--- OUTSIDE RECORDS SUMMARY | 2023-02-17 11:39 | XMS_ITS | Continuity of Care Document ---
Author Name Unknown Organization [facility] Address [address] [place] [address]- Care Team Providers Care Operations Research Engineer Name Role Phone Celestina PRADO, Kennedy Primary Care Physician [place] [facility] [place] - 02/04/[address] [address]- Discharge Disposition: A-D/C Home Attending Physician: Arun Alejandre MD Admitting Physician: Arun Alejandre MD Referring Physician: Arun Alejandre MD Allergies, Adverse Reactions, Alerts Substance Reaction Severity Status NKA Active Immunizations Given and Recorded Vaccine Date Status Refusal Reason influenza virus vaccine, inactivated 01/21/21 Give n influenza virus vaccine, inactivated 12/17/16 Give n influenza virus vaccine, inactivated 02/20/14 Give n influenza virus vaccine, inactivated 02/09/13 Give n influenza virus vaccine, inactivated 1 01/21/12 Gi rafael influenza virus vaccine, inactivated 2 01/12/11 Gi rafael influenza virus vaccine, inactivated 3 12/19/08 Gi rafael tetanus/diphtheria/pertussis, acel(Tdap) 02/20/14 Given Meningococcal Conjugate Vaccine 02/20/14 Given Meningococcal Conjugate [...] 32Admin Note: GIVEN BY NURSE Medications acetaminophen 500 mg oral tablet 2 tablet = 1,000 mg, By Mouth, Every 8 hours, PRN as needed for pain or fever, (not to exceed 3000 mg/day), # 100 tablet, 1 Refills, Maintenance, 05/20/17 15:08:38, Discontinue naproxen ; itwas sent by error Start Date: 05/20/17 Status: Ordered aspirin 81 mg oral delayed release tablet See Instructions, 2 tablet By Mouth Daily at bedtime, # 60 tablet, Refills 8, Tot. Refills 8, Maintenance, 11/26/20 10:35:00 EDT, Instructions Replace Required Details, Route to Pharmacy Electronically, [facility]/pharmacy #[id number], Partial fill upon patient re... Start Date: 11/26/20 Status: Ordered benzoyl peroxide 5% topical gel 1 application, Topically, 2 times a day, Clean affected area before application. Keep away from eyes and mouth areas., # 60 Gm, 11 Refills, Maintenance, 07/27/16 9:20:29, 1 application Topically 2 times a day,Instr:Clean affected area before applicati... Start Date: 07/27/16 Status: Ordered ethinyl estradiol-levonorgestrel 20 mcg-100 mcg oral tablet 1 tablet, By Mouth, Daily, 20 mcg ethinil estradiol and 0.1 mg levonorgestrel, # 28 tablet, 11 Refills, Maintenance, 08/18/17 8:09:15 EDT, Tablet, 1 tablet By Mouth Daily,x28 days,Instr:20 mcg ethinil estradiol and 0.1 mg levonorgestrel Start Date: 08/18/17 Stop Date: 07/20/18 Status: Ordered PNV oral tablet 1 tablet, By Mouth, Daily, # 30 tablet, 9 Refills, Maintenance, 01/21/21 14:30:00 EDT, [facility]/pharmacy#[id number], Partial fill upon patient request if the prescription is for a schedule II opioid drug., 1 tablet By Mouth Daily, 176, cm, 01/21/21 14:12:00 EDT... Start Date: 01/21/21 Status: Ordered Multivitamins with Folic Acid 1 mg oral tablet 1 tablet, By Mouth, Daily, # 90 tablet, 2 Refills, Maintenance, 01/03/21 13:41:00 EDT, Tablet, [id number], Partial fill upon patient request if the prescription is for a schedule II opioid drug., 1 tablet By Mouth Daily, 176, cm, 12/24/20 8:54... Start Date: 01/03/21 Status: Ordered Ritalin 10 mg oral tablet 1, tablet, By Mouth, 2 times a day, ADHD; 30 minutes before meals, # 60 tablet, Refills 0, Tot. Refills 0, Maintenance, ADD, 08/25/17 10:43:43 EDT, Print Requisition Start Date: 08/25/17 Stop Date: 09/24/17 Status: Ordered Unisom 25 mg oral tablet See Instructions, take 1/2 tablet by mouth at bedtime, can repeat in the morning, # 60 tablet, 1 Refills, Maintenance, 11/26/20 10:35:00 EDT, [id number], Partial fill upon patient request if the prescription is for a schedule II opioid drug.,... Start Date: 11/26/20 Status: Ordered Vitamin B6 25 mg oral tablet See Instructions, 1 tablet By Mouth 3 times Daily, # 90 tablet, 1 Refills, Maintenance, 11/26/20 10:35:00 EDT, [id number], Partial fill upon patient request if the prescription is for a schedule II opioid drug., 176, cm, 11/26/20 10:12:00 EDT,... Start Date: 11/26/20 Status: Ordered Problem List Condition Effective Dates Status Health Status Inform ant H/O ADHD(Confirmed) 06/07/08 Active Fully Vaccinated/COVID-19(Confirmed) 11/13/20 Active Vital Signs Most recent to oldest [Reference Range]: 1 Weight 124.5 kg (02/04/21 4:43 PM) Oxygen Saturation [94-100 %] 100 % (02/04/21 4:43 PM) Pulse Rate [55-90 bpm] 78 bpm (02/04/21 4:43 PM) Blood Pressure [90-138/55-84 mm Hg] 118/ 67mm Hg (02/04/21 4:43 PM) Respiratory Rate [16-30 br/min] 16 br/mi n (02/04/21 4:43 PM) Temperature [96.8-100.4 DegF] 98.3 DegF (02/04/21 4:43 PM) Mode of Delivery (Oxygen) Room air (02/04/21 4:43 PM) Blood pressure sites Arm, left 1 (02/04/21 4:43 PM) Temperature Route Oral (02/04/21 4:43 PM) Dry Weight 124.5 kg (02/04/21 4:43 PM) Weight Obtained Via Standing scale (02/04/21 4:43 PM) Dry Weight Obtained Via Standing scale (02/04/21 4:43 PM) 1Result Comment: left arm measured at 41cm Social History Social History Type Response Smoking Status Never smoker; Tobacc o user in household: No entered on: 05/20/17 Sex
--- OUTSIDE RECORDS SUMMARY | 2023-02-17 11:39 | XMS_ITS | Continuity of Care Document ---
Author Name Unknown Organization [facility] Address [address] [place] [id number]- Care Team Providers Care Postdoctoral Scholar Name Role Phone Tanner PRADO, Arun Cross Primary Care Physician [facility]counter [facility] Date[facility]s): 04/01/21 - 06/13/[address] [address] Attending Physician: Not on Staff, Attending MD Allergies, Adverse Reactions, Alerts No Known Allergies [...] by error Start Date: 05/20/17 Status: Ordered ferrous sulfate 325 mg oral tablet 1 tablet = 325 mg, By Mouth, Every other day, # 15 tablet, 5 Refills, Maintenance, 03/20/21 14:49:00 EST, [id number], Partial fill upon patient request if the prescription is for a schedule II opioid drug., 176, cm, 03/19/21 9:08:00 ESTAngus... Start Date: 03/20/21 Stop Date: 09/16/21 Status: Ordered Multivitamins with Folic Acid 1 mg oral tablet 1 tablet, By Mouth, Daily, # 90 tablet, 2 Refills, Maintenance, 01/03/21 13:41:00 EDT, Tablet, [id number], Partial fill upon patient request if the prescription is for a schedule II opioid drug., 1 tablet By Mouth Daily, 176, cm, 12/24/20 8:54... Start Date: 01/03/21 Status: Ordered Problem List Condition Effective Dates Status Health Status Inform ant Anemia in mother complicatin g , childbirth AND/OR puerperium(Confirmed) 1 06/12/21 Active H/O ADHD(Confirmed) 06/07/08 Active Fully Vaccinated/COVID-19(Confirmed) 11/13/20 Active Obese class II(Confirmed) Active 1Problem added by Discern Expert Social History Social History Type Response Smoking Status Never smoker; Tobacc o user in household: No entered on: 05/20/17 Sex
--- OUTSIDE RECORDS SUMMARY | 2023-02-17 11:39 | XMS_ITS | Continuity of Care Document ---
Author Name Unknown Organization [facility] Address [address] [place] [address]- Care Team Providers Care Aeronautical Project Engineer Name Role Phone Tanner PRADO, Arun Cross Primary Care Physician [facility]counter [facility] Date(s): 06/02/21 - 07/02/[address] [address] Allergies, Adverse Reactions, Alerts No Known Allergies [...] 06/14/21 5:15:00 EDT, Route [facility], [id number], [...] 06/14/21 5:15:00 EDT, Route to Pharmacy Electronically, [id number], Partial fill upon patient request if the prescription is for a schedule II opioid drug... Start Date: 06/14/21 Status: Ordered ferrous sulfate 325 mg oral tablet 1 tablet = 325 mg, By Mouth, Every other day, # 15 tablet, 5 Refills, Maintenance, 03/20/21 14:49:00 EST, [facility]/pharmacy #[id number], Partial fill upon patient request if the prescription is for a schedule II opioid drug., 176, cm, 03/19/21 9:08:00 EST, Angus... Start Date: 03/20/21 Stop Date: 09/16/21 Status: Ordered ibuprofen 600 mg oral tablet 600 mg, 1, tablet, By Mouth, Every 6 hours, # 50 tablet, Refills 0, Tot. Refills 0, Maintenance, 06/14/21 5:15:00 EDT, Route to Pharmacy Electronically, [facility]/pharmacy #[id number], Partial fill upon patient request if the prescription is for a schedule II opi... Start Date: 06/14/21 Status: Ordered lidocaine 4% topical gel 1, Topically, Daily, # 1 each, 0 Refills, Maintenance, 06/27/21 10:33:00 EDT, [facility]/pharmacy #[id number], Partial fill upon patient request if the prescription is for a schedule II opioid drug., 1 Topically Daily, 178, cm, 06/27/21 10:19:00 EDT, Height, 124.1... Start Date: 06/27/21 Status: Ordered Multivitamins with Folic Acid 1 mg oral tablet 1 tablet, By Mouth, Daily, # 90 tablet, 2 Refills, Maintenance, 01/03/21 13:41:00 EDT, Tablet, [facility]/pharmacy #[id number], Partial fill upon patient request if the prescription is for a schedule II opioid drug., 1 tablet By Mouth Daily, 176, cm, 12/24/20 8:54... Start Date: 01/03/21 Status: Ordered Vitamin C 500 mg oral tablet 1 tablet = 500 mg, By Mouth, Daily, # 90 tablet, 0 Refills, Maintenance, 06/14/21 5:15:00 EDT, Tablet, [facility]/pharmacy #[id number], Partial fill upon patient request [...]
--- OUTSIDE RECORDS SUMMARY | 2023-02-17 11:39 | XMS_ITS | Continuity of Care Document ---
Author Name Unknown Organization [facility] Address [address] [place] [address]- Care Team Providers Care Operations Professional Name Role Phone Celestina PRADO, Kennedy Primary Care Physician [facility] Date[facility]): 02/[facility]/21 - 03/06/[address] [address] Allergies, Adverse Reactions, Alerts Substance Reaction Severity [...] Note: vis 10/14/2010 3Admin Note: given by 4Admin Note: ADM BY RONAK WALL RN [...] Replace Required Details, Route to Pharmacy Electronically, [facility]/pharmacy #[id number], Partial fill upon patient re... Start [...] tablet, 9 Refills, Maintenance, 01/21/21 14:30:00 EDT, [facility]/pharmacy#[id number], Partial fill upon patient request if the prescription is for a schedule II opioid drug., 1 tablet By Mouth Daily, 176, cm, 01/21/21 14:12:00 EDT... Start Date: 01/21/21 Status: Ordered Multivitamins with Folic Acid 1 mg oral tablet 1 tablet, By Mouth, Daily, # 90 tablet, 2 Refills, Maintenance, 01/03/21 13:41:00 EDT, Tablet, [facility]/pharmacy #[id number], Partial fill upon patient [...]
--- OUTSIDE RECORDS SUMMARY | 2023-02-17 11:39 | XMS_ITS | Continuity of Care Document ---
Author Name Unknown Organization [facility] Address [address] [place] [address]- Care Team Providers Care Marine Engineer Cpvec Name Role Phone Tanner PRADO, Arun Cross Primary Care Physician [facility] Date[facility]s): 04/01/21 - 07/17/[address] [address]- Attending Physician: Laura Salomon CNM Admitting Physician: Laura Salomon CNM Allergies, Adverse Reactions, [...] 06/14/21 5:15:00 EDT, Route to Pharmacy Electronically, [facility]/pharmacy #[id number], Partial fill upon patient request [...] 06/14/21 5:15:00 EDT, Route to Pharmacy Electronically, [facility]/pharmacy #[id number], Partial fill upon patient request if the prescription is for a schedule II opioid drug... Start Date: 06/14/21 Status: Ordered ferrous sulfate 325 mg oral tablet 1 tablet = 325 mg, By Mouth, Every other day, # 15 tablet, 5 Refills, Maintenance, 03/20/21 14:49:00 EST, [facility]/pharmacy #[id number], Partial fill upon patient request if the prescription is for a schedule II opioid drug., 176, cm, 03/19/21 9:08:00 EST, Angus... Start Date: 03/20/21 Stop Date: 09/16/21 Status: Ordered ibuprofen 600 mg oral tablet 600 mg, 1, tablet, By Mouth, Every 6 hours, # 50 tablet, Refills 0, Tot. Refills 0, Maintenance, 06/14/21 5:15:00 EDT, Route to Pharmacy Electronically, [facility]/pharmacy #[id number], Partial fill upon patient request if the prescription is for a schedule II opi... Start Date: 06/14/21 Status: Ordered lidocaine 4% topical gel 1, Topically, Daily, # 1 each, 0 Refills, Maintenance, 06/27/21 10:33:00 EDT, [facility]/pharmacy #[id number], Partial fill upon patient request if the prescription is for a schedule II opioid drug., 1 Topically Daily, 178, cm, 06/27/21 10:19:00 EDT, Height, 124.1... Start Date: 06/27/21 Status: Ordered Multivitamins with Folic Acid 1 mg oral tablet 1 tablet, By Mouth, Daily, # 90 tablet, 2 Refills, Maintenance, 01/03/21 13:41:00 EDT, Tablet, [facility]/pharmacy #[id number], Partial fill upon patient request if the prescription is for a schedule II opioid drug., 1 tablet By Mouth Daily, 176, cm, 12/24/20 8:54... Start Date: 01/03/21 Status: Ordered Vitamin C 500 mg oral tablet 1 tablet = 500 mg, By Mouth, Daily, # 90 tablet, 0 Refills, Maintenance, 06/14/21 5:15:00 EDT, Tablet, [facility]/pharmacy #[id number], Partial fill upon patient request [...]
--- OUTSIDE RECORDS SUMMARY | 2023-02-17 11:39 | XMS_ITS | Continuity of Care Document ---
Author Name Unknown Organization [facility] Address [address] [place] [address]- Care Team Providers Care Registration Officer Name Role Phone Celestina PRADO, Kennedy Primary Care Physician [facility] Date[facility]s): 01/28/21 - 02/27/[facility] [address] [place] [address] Attending Physician: Anastasiia Cochran Admitting Physician: AdmtrAnastasiia Referring Physician: Admtr, Ar8 Allergies, Adverse Reactions, Alerts Substance Reaction Severity [...] Replace Required Details, Route to Pharmacy Electronically, [facility]/pharmacy #[id number], Partial fill upon patient re... Start Date: [...] tablet, 9 Refills, Maintenance, 01/21/21 14:30:00 EDT, [facility]/pharmacy#[id number], Partial fill upon patient request if the prescription is for a schedule II opioid drug., 1 tablet By Mouth Daily, 176, cm, 01/21/21 14:12:00 EDT... Start Date: 01/21/21 Status: Ordered Multivitamins with Folic Acid 1 mg oral tablet 1 tablet, By Mouth, Daily, # 90 tablet, 2 Refills, Maintenance, 01/03/21 13:41:00 EDT, Tablet, [facility]/pharmacy #[id number], Partial fill upon patient request if [...]
--- OUTSIDE RECORDS SUMMARY | 2023-02-17 11:39 | XMS_ITS | Continuity of Care Document ---
Author Name Unknown Organization [facility] Address [address] [place] [address], [address] [address]- Care Team Providers Care Seismic Engineer Name Role Phone Funmilayo FELIPE, Amalia La Primary Care Physician Encounter [facility] Date(s): 03/17/22 - 04/16/22 [facility] [address] [place] [address], [address] [place], [place] [address] Attending Physician: AdmAnastasiia don Admitting Physician: AdmtrAnastasiia Referring Physician: Admtr, Anastasiia Allergies, Adverse Reactions, Alerts No Known Allergies Immunizations Given and Recorded Vaccine Date Status Refusal Reason SARS-CoV-2 mRNA ([id number]-[id number]) vax 07/23/21 Given tetanus/diphtheria/pertussis, acel(Tdap) 03/19/21 Given [...] the prescriptio... Start Date: 01/06/22 Status: Ordered Joanna 0.35 mg oral tablet [...] Reference Physician Member Role: PCP Address: Address: [address] [place] [address]- Care Team Related Persons Name: MARYBEL MACHADO Address: home [address] [place] [address] Name: VITA MORIN Address: [address] Address: home [address] [place] [address] Name: FAMILIA BARRERA Address: home [address] [place] [address]
--- OUTSIDE RECORDS SUMMARY | 2023-02-17 11:39 | XMS_ITS | Continuity of Care Document ---
Author Name Unknown Organization [facility] Address [address] [place] [address]- Care Team Providers Care Manager Aviation Name Role Phone Tanner PRADO, Arun Cross Primary Care Physician [phone] Encounter [facility] Date(s): 09/02/21 - 10/02/[address] [address] Attending Physician: Anastasiia Cochran Admitting Physician: Anastasiia Cochran Referring Physician: AdmtrAnastasiia Allergies, Adverse Reactions, Alerts No Known Allergies Immunizations Given and Recorded Vaccine Date Status Refusal Reason SARS-CoV-2 mRNA ([id number]-txin-[id number]) vax 07/23/21 Given tetanus/diphtheria/pertussis, acel(Tdap) 03/19/21 Given [...] 06/14/21 5:15:00 EDT, Route to Pharmacy Electronically, [facility]/pharmacy #[id number], Partial fill upon patient request if [...] 5 Refills, Maintenance, 06/14/21 5:17:00 EDT, Tablet, [facility]/pharmacy #[id number], Partial fill upon patient request if [...] tablet, 5 Refills, Maintenance, 03/20/21 14:49:00 EST, [facility]/pharmacy #[id number], Partial fill upon patient request if the prescription is for a schedule II opioid drug., 176, cm, 03/19/21 9:08:00 EST, Angus... Start Date: 03/20/21 Stop Date: 09/16/21 Status: Ordered ibuprofen 600 mg oral tablet 600 mg, 1, tablet, By Mouth, Every 6 hours, # 50 tablet, Refills 0, Tot. Refills 0, Maintenance, 06/14/21 5:15:00 EDT, Route to Pharmacy Electronically, [facility]/pharmacy #[id number], Partial fill upon patient request if the prescription is for a schedule II opi... Start Date: 06/14/21 Status: Ordered lidocaine 4% topical cream 1 application, Topically, 4 times a day, apply small amount to affected area, # 30 Gm, 0 Refills, Maintenance, 07/23/21 9:35:00 EDT, Cream, [facility]/pharmacy #[id number], may substitute cream/ointment/gel or 3,4 or 5%, whatever insurance covers, 1 application T... Start Date: 07/23/21 Status: Ordered Multivitamins with Folic Acid 1 mg oral tablet 1 tablet, By Mouth, Daily, # 90 tablet, 2 Refills, Maintenance, 01/03/21 13:41:00 EDT, Tablet, [facility]/pharmacy #[id number], Partial fill upon patient request if the prescription is for a schedule II opioid drug., 1 tablet By Mouth Daily, 176, cm, 12/24/20 8:54... Start Date: 01/03/21 Status: Ordered Proctozone HC 2.5% topical cream 1 applicator, Topically, 3 times a day, apply in a thin film to the affected skin and rub in gentlyand completely, # 30 Gm, 0 Refills, Maintenance, 07/23/21 9:38:00 EDT, [facility]/pharmacy #[id number], Partial fill upon patient request if the prescription is for... Start Date: 07/23/21 Status: Ordered Vitamin C 500 mg oral tablet 1 tablet = 500 mg, By Mouth, Daily, # 90 tablet, 0 Refills, Maintenance, 06/14/21 5:15:00 EDT, Tablet, [facility]/pharmacy #[id number], Partial fill upon patient request if the prescription is for a schedule II opioid drug., 178, cm, 06/14/21 2:48:00 EDT, Height,... Start Date: 06/14/21 Status: Ordered Problem List Condition Effective Dates Status Health Status Inform ant H/O ADHD(Confirmed) 06/07/08 Active Fully Vaccinated/COVID-19(Confirmed) 11/13/20 Active Obstetrical laceration(Confirmed) Active History of gestational hypertension(Confirmed) Active History of hemorrhage(Confirmed) Active Obese class II(Confirmed) Active Social History Social History Type Response Smoking Status Never smoker; Tobacc o user in household: No entered on: 05/20/17 Sex
--- OUTSIDE RECORDS SUMMARY | 2023-02-17 11:39 | XMS_ITS | Continuity of Care Document ---
Author Name Unknown Organization [facility] Address [address] [place] [address]- Care Team Providers Care Theatrical Rigger Name Role Phone Tanner PRADO, Arun Cross Primary Care Physician [facility] Date[facility]s): 06/12/21 - 06/14/[address] [address]- Discharge Disposition: A-D/C Home Attending Physician: Kavita Combs MD Admitting Physician: Kavita Combs MD Referring Physician: Kavita Combs MD Allergies, Adverse Reactions, Alerts No Known [...] 06/14/21 5:15:00 EDT, Route to Pharmacy Electronically, [facility]/pharmacy #[id number], Partial fill upon patient request if the prescription... Start Date: 06/14/21 Status: Ordered acetaminophen 500 mg oral tablet 2 tablet = 1,000 mg, By Mouth, Every 8 hours, PRN as needed for pain or fever, (not to exceed 3000 mg/day), # 100 tablet, 1 Refills, Maintenance, 05/20/17 15:08:38, Discontinue naproxen ; itwas sent by error Start Date: 05/20/17 Status: Ordered Acetaminophen Tablet 650 mg, Tablet, By Mouth, Every 4 hours, PRN for Pain , Mild, (1-3), may give 325mg per patient preference and re-dose with 325mg within 4 hours, if needed. Patient should only receive a total of 650mg of Acetaminophen every 4 hours., Routine, 06/13... Start Date: 06/13/21 Stop Date: 06/14/21 Status: Discontinued Joanna 0.35 mg oral tablet 1 tablet [...] II opi... Start Date: 06/14/21 Status: Ordered Ibuprofen Tablet 800 mg, Tablet, By Mouth, Every 8 hours, PRN for Pain , Moderate, (4-6), may give 400mg per patientpreference and re-dose with 400mg within 8 hours if needed. Patient should only receive a total of 800mg of Ibuprofen every 8 hours., Routine, ... Start Date: 06/13/21 Stop Date: 06/14/21 Status: Discontinued Multivitamins with Folic Acid 1 mg oral [...] 0 Refills, Maintenance, 06/14/21 5:15:00 EDT, Tablet, [facility]/pharmacy #[id number], Partial fill upon patient request if the prescription is for a schedule II opioid drug., 178, cm, 06/14/21 2:48:00 EDT, Height,... Start Date: 06/14/21 Status: Ordered Problem List Condition Effective Dates Status Health Status Inform ant H/O ADHD(Confirmed) 06/07/08 Active Fully Vaccinated/COVID-19(Confirmed) 11/13/20 Active Obese class II(Confirmed) Active Procedures Procedure Date Related Diagnosis Body Site Status None Completed Vital Signs Most recent to oldest [Reference Range]: 1 2 3 4 Height 178 cm (06/14/21 8:15 AM) 178 cm (06/14/21 12:00 AM) 178 cm (06/13/21 7:39 AM) Weight 124.1 kg (06/12/21 1:55 PM) 124.1 kg (06/12/21 8:31 AM) 124.1 kg (06/12/21 6:10 AM) Oxygen Saturation [94-100 %] 98 % (06/14/21 12:00 AM) 98 % (06/13/21 3:03 PM) 97 % (06/13/21 7:39 AM) Pulse Rate [55-90 bpm] 82 bpm (06/14/21 8:15 AM) 95 bpm *H* (06/14/21 12:00 AM) 83 bpm (06/13/21 3:03 PM) Body Mass Index [18.5-24.99] 39.17 *>HHI* (06/12/21 8:31 AM) Blood Pressure [90-138/55-84 mm Hg] 128/68mm Hg (06/14/21 8:15 AM) 128/87mm Hg (06/14/21 12:00 AM) 132/75mm Hg (06/13/21 3:03 PM) Respiratory Rate [16-30 br/min] 18 br/min (06/14/21 11:17 AM) 18 br/min (06/14/21 8:15 AM) 18 br/min (06/14/21 8:15 AM) 18 br/min (06/14/21 8:15 AM) Temperature [96.8-100.4 DegF] 98.3 DegF (06/14/21 8:15 AM) 98.2 DegF (06/14/21 12:00 AM) 98.1 DegF (06/13/21 3:03 PM) Mode of Delivery (Oxygen) Room air (06/14/21 12:00 AM) Room air (06/13/21 3:03 PM) Room air (06/13/21 7:39 AM) Blood pressure sites Arm, left (06/14/21 12:00 AM) Arm, left (06/13/21 3:03 PM) Arm, left (06/13/21 7:39 AM) Temperature Route Axillary (06/14/21 8:15 AM) Oral (06/14/21 12:00 AM) Oral (06/13/21 3:03 PM) Dry Weight 124.1 kg (06/12/21 8:31 AM) 124.1 kg (06/12/21 6:10 AM) Weight Obtained Via Patient/family stated (06/12/21 1:55 PM) Patient/family stated (06/12/21 8:31 AM) Standing scale (06/12/21 6:10 AM) Dry Weight Obtained Via Patient/family stated (06/12/21 8:31 AM) Standing scale (06/12/21 6:10 AM) Social History Social History Type Response Smoking Status Never smoker; Tobacc o user in household: No entered on: 05/20/17 Sex
--- OUTSIDE RECORDS SUMMARY | 2023-02-17 11:39 | XMS_ITS | Continuity of Care Document ---
Author Name Unknown Organization [facility] Address [address] [place] [address]- Care Team Providers Care Oil Truck Driver Name Role Phone Tanner PRADO, Arun Cross Primary Care Physician [phone] [facility] Date(s): 06/23/21 - 07/23/[address] [address] Allergies, Adverse Reactions, Alerts No Known Allergies Immunizations Given and Recorded Vaccine Date Status Refusal Reason SARS-CoV-2 mRNA ([id number]-yhrv-mnczq) vax 07/23/21 Given tetanus/diphtheria/pertussis, acel(Tdap) 03/19/21 Given [...] 06/14/21 5:15:00 EDT, Route to Pharmacy Electronically, [facility]/pharmacy #[id number], Partial fill upon patient request [...] 06/14/21 5:15:00 EDT, Route to Pharmacy Electronically, [facility]/pharmacy #[id number], Partial fill upon patient request if the prescription is for a schedule II opioid drug... Start Date: 06/14/21 Status: Ordered ferrous sulfate 325 mg oral tablet 1 tablet = 325 mg, By Mouth, Every other day, # 15 tablet, 5 Refills, Maintenance, 03/20/21 14:49:00 EST, [facility]/pharmacy #[id number], Partial fill upon patient request if the prescription is for a schedule II opioid drug., 176, cm, 03/19/21 9:08:00 EST, Angus... Start Date: 03/20/21 Stop Date: 09/16/21 Status: Ordered ibuprofen 600 mg oral tablet 600 mg, 1, tablet, By Mouth, Every 6 hours, # 50 tablet, Refills 0, Tot. Refills 0, Maintenance, 06/14/21 5:15:00 EDT, Route to Pharmacy Electronically, [facility]/pharmacy #[id number], Partial fill upon patient request if the prescription is for a schedule II opi... Start Date: 06/14/21 Status: Ordered lidocaine 4% topical cream 1 application, Topically, 4 times a day, apply small amount to affected area, # 30 Gm, 0 Refills, Maintenance, 07/23/21 9:35:00 EDT, Cream, [id number], may substitute cream/ointment/gel or 3,4 or [...] 0 Refills, Maintenance, 06/14/21 5:15:00 EDT, Tablet, [facility]/pharmacy #[id number], Partial fill upon patient request if the prescription is for a schedule II opioid drug., 178, cm, 06/14/21 2:48:00 EDT, Height,... Start Date: 06/14/21 Status: Ordered Problem List Condition Effective Dates Status Health Status Inform ant H/O ADHD(Confirmed) 06/07/08 Active Fully Vaccinated/COVID-19(Confirmed) 11/13/20 Active History of gestational hypertension(Confirmed) Active History of hemorrhage(Confirmed) Active Obese class II(Confirmed) Active Social History Social History Type Response Smoking Status Never smoker; Tobacc o user in household: No entered on: 05/20/17 Sex
--- OUTSIDE RECORDS SUMMARY | 2023-02-17 11:39 | XMS_ITS | Continuity of Care Document ---
Author Name Unknown Organization [facility] Address [address] [place] [address]- Care Team Providers Care Commercial Litigation Paralegal Name Role Phone Celestina PRADO, Kennedy Primary Care Physician [facility] Date[facility]s): 11/27/20 - 12/27/[address] [address] Allergies, Adverse Reactions, Alerts Substance Reaction Severity Status NKA Active Immunizations Given and Recorded Vaccine Date Status Refusal Reason influenza virus vaccine, inactivated 12/17/16 Give n [...] Replace Required Details, Route to Pharmacy Electronically, [facility]/pharmacy #[id number], Partial fill upon patient re... Start Date: [...] Date: 08/18/17 Stop Date: 07/20/18 Status: Ordered Ritalin 10 mg oral tablet [...] tablet, 1 Refills, Maintenance, 11/26/20 10:35:00 EDT, [facility]/pharmacy #[id number], Partial fill upon patient request if the prescription is for a schedule II opioid drug.,... Start Date: 11/26/20 Status: Ordered Vitamin B6 25 mg oral tablet See Instructions, 1 tablet By Mouth 3 times Daily, # 90 tablet, 1 Refills, Maintenance, 11/26/20 10:35:00 EDT, [facility]/pharmacy #[id number], Partial fill upon patient request if the prescription is for a schedule II opioid drug., 176, cm, 11/26/20 10:12:00 EDT,... Start Date: 11/26/20 Status: Ordered Problem List Condition Effective Dates Status Health Status Inform ant H/O ADHD(Confirmed) 06/07/08 Active Fully Vaccinated/COVID-19(Confirmed) 11/13/20 Active Social History Social History Type Response Smoking Status Never smoker; Tobacc o user in household: No entered on: 05/20/17 Sex
--- OUTSIDE RECORDS SUMMARY | 2023-02-17 11:39 | XMS_ITS | Continuity of Care Document ---
Author Name Unknown Organization [facility] Address [address] [place] [address], [address] [place] [address]- Care Team Providers Care Mri Technologist Name Role Phone Funmilayo FELIPE, Amalia La Primary Care Physician [phone] Encounter [facility] Date(s): 02/02/22 - 04/16/22 [facility] [address] [facility], [address] [place], [place] [address] Attending Physician: Orly Veliz MD Admitting Physician: Orly Veliz MD Referring Physician: Amalia Mello NP Allergies, Adverse Reactions, Alerts No Known Allergies Immunizations Given and Recorded Vaccine Date Status Refusal Reason SARS-CoV-2 mRNA (xefgdeu-xuqe-daukq) vax 07/23/21 Given tetanus/diphtheria/pertussis, acel(Tdap) 03/19/21 Given [...] Reference Physician Member Role: PCP Address: Address: [address] [place] [address]- Care Team Related Persons Name: MARYBEL MACHADO Address: home [address] [place] [address] Name: VITA MORIN Address: [address] Address: home [address] [place] [address] Name: FAMILIA BARRERA Address: home [address] [place] [address]
--- OUTSIDE RECORDS SUMMARY | 2023-02-17 11:39 | XMS_ITS | Continuity of Care Document ---
Author Name Unknown Organization [facility] n[facility] Address [address] [place] [address]- Care Team Providers Care Junior Programmer Analyst Name Role Phone Tanner PRADO, Arun Cross Primary Care Physician [facility]s): 08/15/21 - 10/02/[address] [address] Attending Physician: Not on Staff, Attending MD Allergies, Adverse Reactions, Alerts No Known Allergies Immunizations Given and Recorded Vaccine Date Status Refusal Reason SARS-CoV-2 mRNA (gvbowec-avhj-vnaor) vax 07/23/21 Given tetanus/diphtheria/pertussis, acel(Tdap) 03/19/21 Given [...] 06/14/21 5:15:00 EDT, [facility] 06/14/21 5:15:00 EDT, Route to Pharmacy Electronically, [facility]/pharmacy #[id number], Partial fill upon patient request if the prescription is for a schedule II opioid drug... Start Date: 06/14/21 Status: Ordered ferrous sulfate 325 mg oral tablet 1 tablet = 325 mg, By Mouth, Every other day, # 15 tablet, 5 Refills, Maintenance, 03/20/21 14:49:00 EST, [facility]/pharmacy #[id number], Partial fill upon patient request if the prescription is for a schedule II opioid drug., 176, cm, 03/19/21 9:08:00 ESTAngus... Start Date: 03/20/21 Stop Date: 09/16/21 Status: Ordered ibuprofen 600 mg oral tablet 600 mg, 1, tablet, By Mouth, Every 6 hours, # 50 tablet, Refills 0, Tot. Refills 0, Maintenance, 06/14/21 5:15:00 EDT, Route to Pharmacy Electronically, [facility]/pharmacy #[id number], Partial fill upon patient request if the prescription is for a schedule II opi... Start Date: 06/14/21 Status: Ordered lidocaine 4% topical cream 1 application, Topically, 4 times a day, apply small amount to affected area, # 30 Gm, 0 Refills, Maintenance, 07/23/21 9:35:00 EDT, Cream, [facility]/pharmacy #[id number], may substitute cream/ointment/gel or 3,4 or [...] Refills, Maintenance, 06/14/21 5:15:00 EDT, Tablet, [id number], Partial fill upon patient request if the [...]
--- OUTSIDE RECORDS SUMMARY | 2023-02-17 11:40 | XMS_ITS | Continuity of Care Document ---
Author Name Unknown Organization [facility] Address [address] [facility] [address] [place] [address]- Care Team Providers Care Senior Hardware Engineer Name Role Phone Tanner PRADO, Arun Cross Primary Care Physician [facility] Date(s): 04/28/21 - 05/28/21 [facility] [address] [facility] [address] [place] [address]- Attending Physician: Anastasiia Cochran Admitting Physician: Anastasiia [...] virus vaccine, inactivated 3 12/19/08 Gi rafael Meningococcal Conjugate Vaccine 02/20/14 Given Meningococcal Conjugate [...] ADHD(Confirmed) 06/07/08 Active Fully Vaccinated/COVID-19(Confirmed) 11/13/20 Active Severe obesity(Confirmed) Active Social History Social History Type Response Smoking Status Never smoker; Tobacc o user in household: No entered on: 05/20/17 Sex
--- OUTSIDE RECORDS SUMMARY | 2023-02-17 11:40 | XMS_ITS | Continuity of Care Document ---
Author Name Unknown Organization [facility] Address [address] [place] [address]- Care Team Providers Care Cloud Infrastructure Architect Name Role Phone Tanner PRADO, Arun Cross Primary Care Physician [facility] - 07/11/[address] [address] Allergies, Adverse Reactions, Alerts No Known [...] tablet, 5 Refills, Maintenance, 03/20/21 14:49:00 EST, [facility]/pharmacy #[id number], Partial fill upon patient request if the prescription is for a schedule II opioid drug., 176, cm, 03/19/21 9:08:00 EST, Angus... Start Date: 03/20/21 Stop Date: 09/16/21 Status: Ordered ibuprofen 600 mg oral tablet 600 mg, 1, tablet, By Mouth, Every 6 hours, # 50 tablet, Refills 0, Tot. Refills 0, Maintenance, 06/14/21 5:15:00 EDT, Route to Pharmacy Electronically, [facility]/pharmacy #[id number], Partial fill upon patient request if the prescription is for a schedule II opi... Start Date: 06/14/21 Status: Ordered lidocaine 4% topical gel 1, Topically, Daily, # 1 each, 0 Refills, Maintenance, 06/27/21 10:33:00 EDT, [facility]/pharmacy #[id number], Partial fill upon patient request if the prescription is for a schedule II opioid drug., 1 Topically Daily, 178, cm, 06/27/21 10:19:00 EDT, Height, 124.1... Start Date: 06/27/21 Status: Ordered Multivitamins with Folic Acid 1 mg oral tablet 1 tablet, By Mouth, Daily, # 90 tablet, 2 Refills, Maintenance, 01/03/21 13:41:00 EDT, Tablet, [facility]/pharmacy #[id number], Partial fill upon patient request if the prescription is for a schedule II opioid drug., 1 tablet By Mouth Daily, 176, cm, 12/24/20 8:54... Start Date: 01/03/21 Status: Ordered Vitamin C 500 mg oral tablet 1 tablet = 500 mg, By Mouth, Daily, # 90 tablet, 0 Refills, Maintenance, 06/14/21 5:15:00 EDT, Tablet, [facility]/pharmacy #[id number], Partial fill upon patient [...]
--- OUTSIDE RECORDS SUMMARY | 2023-02-17 11:40 | XMS_ITS | Continuity of Care Document ---
Author Name Unknown Organization [facility] Address [address] [place] [address]- Care Team Providers Care Steel Erecting Pusher Name Role Phone Celestina PRADO, Kennedy Primary Care Physician [facility]): 12/25/20 - 01/24/[address] [address] Allergies, Adverse Reactions, Alerts Substance [...] Replace Required Details, [facility] tablet, 9 Refills, Maintenance, 01/21/21 14:30:00 EDT, [facility]/pharmacy#[id number], Partial fill upon patient request [...]
--- OUTSIDE RECORDS SUMMARY | 2023-02-17 11:40 | XMS_ITS | Continuity of Care Document ---
Author Name Unknown Organization [facility] Address [address] [place] [address]- Care Team Providers Care Raymond Mill Operator Name Role Phone Funmilayo FELIPE, Amalia La Primary Care Physician [phone] [facility] Date(s): 01/26/22 - 02/25/22 [facility] [employer] [facility] [address] [place], [place] [address] Allergies, Adverse Reactions, Alerts No Known Allergies Immunizations Given and Recorded Vaccine Date Status Refusal Reason SARS-CoV-2 mRNA ([id number]-[id number]) vax 07/23/21 Given tetanus/diphtheria/pertussis, acel(Tdap) 03/19/21 Given [...] Note: vis 10/14/2010 3Admin Note: given by VALETNINA. 4Admin Note: ADM BY RONAK WALL RN [...] Reference Physician Member Role: PCP Address: Address: [address] [place] [address]- Care Team Related Persons Name: JEANNETTE MARYBEL Address: home [address] [place] [address] Name: VITA MORIN Address: [address] Address: home [address] [place] [address] Name: FAMILIA BARRERA Address: home [address] [place] [address]
--- OUTSIDE RECORDS SUMMARY | 2023-02-17 11:40 | XMS_ITS | Continuity of Care Document ---
Author Name Unknown Organization [facility] Address [address] [place] [address]- Care Team Providers Care Produce Shipper Name Role Phone Tanner PRADO, Arun Cross Primary Care Physician [facility]s): 06/05/21 - 07/05/[address] [id number] Allergies, Adverse Reactions, Alerts [...] tablet, 5 Refills, Maintenance, 03/20/21 14:49:00 EST, [facility]/pharmacy #[id number], Partial fill upon patient request if the prescription is for a schedule II opioid drug., 176, cm, 03/19/21 9:08:00 EST, Angus... Start Date: 03/20/21 Stop Date: 09/16/21 Status: Ordered ibuprofen 600 mg oral tablet 600 mg, 1, tablet, By Mouth, Every 6 hours, # 50 tablet, Refills 0, Tot. Refills 0, Maintenance, 06/14/21 5:15:00 EDT, Route to Pharmacy Electronically, [facility]/pharmacy #[id number], Partial fill upon patient request if the prescription is for a schedule II opi... Start Date: 06/14/21 Status: Ordered lidocaine 4% topical gel 1, Topically, Daily, # 1 each, 0 Refills, Maintenance, 06/27/21 10:33:00 EDT, [facility]/pharmacy #[id number], Partial fill upon patient request if the prescription is for a schedule II opioid drug., 1 Topically Daily, 178, cm, 06/27/21 10:19:00 EDT, Height, 124.1... Start Date: 06/27/21 Status: Ordered Multivitamins with Folic Acid 1 mg oral tablet 1 tablet, By Mouth, Daily, # 90 tablet, 2 Refills, Maintenance, 01/03/21 13:41:00 EDT, Tablet, [facility]/pharmacy #[id number], Partial fill upon patient request if the prescription is for a schedule II opioid drug., 1 tablet By Mouth Daily, 176, cm, 12/24/20 8:54... Start Date: 01/03/21 Status: Ordered Vitamin C 500 mg oral tablet 1 tablet = 500 mg, By Mouth, Daily, # 90 tablet, 0 Refills, Maintenance, 06/14/21 5:15:00 EDT, Tablet, [facility]/pharmacy #[id number], Partial fill upon patient [...]
--- OUTSIDE RECORDS SUMMARY | 2023-02-17 11:40 | XMS_ITS | Continuity of Care Document ---
Author Name Unknown Organization [facility] Address [address] [place] [address]- Care Team Providers Care Algebra Tutor Name Role Phone Tanner PRADO, Arun Cross Primary Care Physician [facility]): 07/30/21 - 08/29/21 [facility] [address] [address] Allergies, Adverse Reactions, Alerts No Known Allergies Immunizations Given and Recorded Vaccine Date Status Refusal Reason SARS-CoV-2 mRNA (jzpztnr-[id number]) vax 07/23/21 Given tetanus/diphtheria/pertussis, acel(Tdap) 03/19/21 Given [...] 5:15:00 EDT, Route to Pharmacy Electronically, [facility]/pharmacy #[id number], Partial fill upon patient request [...] 5:15:00 EDT, Route to Pharmacy Electronically, [facility]/pharmacy #[id number], Partial fill upon patient request if the prescription is for a schedule II opioid drug... Start Date: 06/14/21 Status: Ordered ferrous sulfate 325 mg oral tablet 1 tablet = 325 mg, By Mouth, Every other day, # 15 tablet, 5 Refills, Maintenance, 03/20/21 14:49:00 EST, [facility]/pharmacy #[id number], Partial fill upon patient request if the prescription is for a schedule II opioid drug., 176, cm, 03/19/21 9:08:00 EST, Angus... Start Date: 03/20/21 Stop Date: 09/16/21 Status: Ordered ibuprofen 600 mg oral tablet 600 mg, 1, tablet, By Mouth, Every 6 hours, # 50 tablet, Refills 0, Tot. Refills 0, Maintenance, 06/14/21 5:15:00 EDT, Route to Pharmacy Electronically, [facility]/pharmacy #[id number], Partial fill upon patient request [...] 0 Refills, Maintenance, 06/14/21 5:15:00 EDT, Tablet, [facility]/pharmacy #[id number], Partial fill upon patient request if the [...]
--- OUTSIDE RECORDS SUMMARY | 2023-02-17 11:40 | XMS_ITS | Continuity of Care Document ---
Author Name Unknown Organization [facility] Address [address] [place] [address]- Care Team Providers Care Rn Supplemental Name Role Phone Tanner PRADO, Arun Cross Primary Care Physician [phone] [facility]): 06/10/21 - 07/10/[address] [address] Allergies, Adverse Reactions, Alerts No [...] tablet, 5 Refills, Maintenance, 03/20/21 14:49:00 EST, [facility]/pharmacy #[id number], Partial fill upon patient request if the prescription is for a schedule II opioid drug., 176, cm, 03/19/21 9:08:00 EST, Angus... Start Date: 03/20/21 Stop Date: 09/16/21 Status: Ordered ibuprofen 600 mg oral tablet 600 mg, 1, tablet, By Mouth, Every 6 hours, # 50 tablet, Refills 0, Tot. Refills 0, Maintenance, 06/14/21 5:15:00 EDT, Route to Pharmacy Electronically, [facility]/pharmacy #[id number], Partial fill upon patient request if the prescription is for a schedule II opi... Start Date: 06/14/21 Status: Ordered lidocaine 4% topical gel 1, Topically, Daily, # 1 each, 0 Refills, Maintenance, 06/27/21 10:33:00 EDT, [facility]/pharmacy #[id number], Partial fill upon patient request if the prescription is for a schedule II opioid drug., 1 Topically Daily, 178, cm, 06/27/21 10:19:00 EDT, Height, 124.1... Start Date: 06/27/21 Status: Ordered Multivitamins with Folic Acid 1 mg oral tablet 1 tablet, By Mouth, Daily, # 90 tablet, 2 Refills, Maintenance, 01/03/21 13:41:00 EDT, Tablet, [facility]/pharmacy #[id number], Partial fill upon patient request if the prescription is for a schedule II opioid drug., 1 tablet By Mouth Daily, 176, cm, 12/24/20 8:54... Start Date: 01/03/21 Status: Ordered Vitamin C 500 mg oral tablet 1 tablet = 500 mg, By Mouth, Daily, # 90 tablet, 0 Refills, Maintenance, 06/14/21 5:15:00 EDT, Tablet, [facility]/pharmacy #[id number], Partial fill upon patient request [...]
--- OUTSIDE RECORDS SUMMARY | 2023-02-17 11:40 | XMS_ITS | Continuity of Care Document ---
Author Name Unknown Organization [facility] ter Address [address] [place] [address]- Care Team Providers Care Impersonator Character Name Role Phone Tanner PRADO, Arun Cross Primary Care Physician [phone] [facility]s): 06/05/21 - 06/05/[address] [address] Discharge Disposition: A-D/C Home Attending Physician: Nanette Smith MD Admitting Physician: Nanette Smith MD Referring Physician: Nanette Smith MD Allergies, Adverse Reactions, Alerts No Known [...] tablet, 5 Refills, Maintenance, 03/20/21 14:49:00 EST, [facility]/pharmacy #[id number], Partial fill upon patient request [...] Fully Vaccinated/COVID-19(Confirmed) 11/13/20 Active Severe obesity(Confirmed) Active Vital Signs Most recent to oldest [Reference Range]: 1 2 Weight 124.7 kg (06/05/21 3:42 PM) 124.7 kg (06/05/21 3:39 PM) Oxygen Saturation [94-100 %] 98 % (06/05/21 4:20 PM) 98 % (06/05/21 4:03 PM) Blood Pressure [90-138/55-84 mm Hg] 123/ 89mm Hg (06/05/21 4:20 PM) 117/82mm Hg (06/05/21 4:03 PM) Respiratory Rate [16-30 br/min] 18 br/mi n (06/05/21 4:03 PM) Temperature [96.8-100.4 DegF] 98 DegF (06/05/21 3:42 PM) 98 DegF (06/05/21 3:39 PM) Mode of Delivery (Oxygen) Room air (06/05/21 4:03 PM) Blood pressure sites Arm, left (06/05/21 4:03 PM) Temperature Route Oral (06/05/21 3:42 PM) Oral (06/05/21 3:39 PM) Dry Weight 124.7 kg (06/05/21 3:42 PM) 124.7 kg (06/05/21 3:39 PM) Weight Obtained Via Standing scale (06/05/21 3:39 PM) Social History Social History Type Response Smoking Status Never smoker; Tobacc o user in household: No entered on: 05/20/17 Sex
--- OUTSIDE RECORDS SUMMARY | 2023-02-17 11:40 | XMS_ITS | Continuity of Care Document ---
Author Name Unknown Organization [facility] ter Address [address] [place] [address]- Care Team Providers Care Electric Organ Assembler And Checker Name Role Phone Tanner PRADO, Arun Cross Primary Care Physician [phone] [facility](s): 06/02/21 - 06/02/[address] [address] Discharge Disposition: A-D/C Home Attending Physician: Arun Alejandre MD Admitting Physician: Arun Alejandre MD Referring Physician: Arun Alejandre MD Allergies, Adverse Reactions, Alerts No Known [...] to oldest [Reference Range]: 1 2 3 Height 170 cm (06/02/21 4:22 PM) Weight 123.4 kg (06/02/21 1:30 PM) Oxygen Saturation [94-100 %] 100 % (06/02/21 1:30 PM) Pulse Rate [55-90 bpm] 98 bpm *H* (06/02/21 1:30 PM) Blood Pressure [90-138/55-84 mm Hg] 127/77mm Hg (06/02/21 4:55 PM) 139/90mm Hg *H* (06/02/21 4:22 PM) 123/70mm Hg (06/02/21 1:30 PM) Respiratory Rate [16-30 br/min] 16 br/min (06/02/21 4:22 PM) 20 br/min (06/02/21 1:30 PM) Temperature [96.8-100.4 DegF] 98.4 DegF (06/02/21 1:30 PM) Blood pressure sites Arm, right (06/02/21 4:22 PM) Temperature Route Oral (06/02/21 4:22 PM) Oral (06/02/21 1:30 PM) Social History Social History Type Response Smoking Status Never smoker; Tobacc o user in household: No entered on: 05/20/17 Sex
--- OUTSIDE RECORDS SUMMARY | 2023-02-17 11:40 | XMS_ITS | Continuity of Care Document ---
Author Name Unknown Organization [facility] Address [address] [place] [address]- Care Team Providers Care Service Secretary Name Role Phone Tanner PRADO, Arun Cross Primary Care Physician [facility]): 04/28/21 - 05/05/21 [facility] [address] [place] [address]- Attending Physician: Sebas PRADO, Juan Mercado Referring Physician: Laura Salomon CNM Allergies, Adverse [...] by error Start Date: 05/20/17 Status: Ordered clotrimazole 1% vaginal cream with applicator 1 application, Vaginally, Daily at bedtime, for 7 days, # 45 Gm, 0 Refills, Acute 05/06/21 9:04:00 EST, 04/29/21 9:04:00 EST, Cream, [facility]/pharmacy #[id number], Partial fill upon patient request if the prescription is for a schedule II opioid drug., 1 applica... Start Date: 04/29/21 Stop Date: 05/06/21 Status: Ordered ferrous sulfate 325 mg oral tablet 1 tablet = 325 mg, By Mouth, Every other day, # 15 tablet, 5 Refills, Maintenance, 03/20/21 14:49:00 EST, [facility]/pharmacy #[id number], Partial fill upon patient request if the prescription is for a schedule II opioid drug., 176, cm, 03/19/21 9:08:00 EST, [place]... Start Date: 03/20/21 Stop Date: 09/16/21 Status: [...] Vaccinated/COVID-19(Confirmed) 11/13/20 Active Obese class II(Confirmed) Active Vital Signs Most recent to oldest [Reference Range]: 1 Weight 120 kg (04/28/21 3:06 PM) Dry Weight 120 kg (04/28/21 3:06 PM) Social History Social History Type Response Smoking Status Never smoker; Tobacc o user in household: No entered on: 05/20/17 Sex
--- OUTSIDE RECORDS SUMMARY | 2023-02-17 11:40 | XMS_ITS | Continuity of Care Document ---
Author Name Unknown Organization [facility] ter Address [address] [place] [address]- Care Team Providers Care Shipping Track Supervisor Name Role Phone Celestina PRADO, Kennedy Primary Care Physician [facility] 04[facility]12[facility] - 04/12/[address] [address] Discharge Disposition: A-D/C Home Attending Physician: Patsy Rush MD Admitting Physician: Patsy Rush MD Referring Physician: Patsy Rush MD Allergies, Adverse Reactions, Alerts No Known [...] Replace Required Details, Route to Pharmacy Electronically, [facility]/pharmacy #[id number], Partial fill upon patient re... Start Date: [...] Date: 08/18/17 Stop Date: 07/20/18 Status: Ordered ferrous sulfate 325 mg oral tablet 1 tablet = 325 mg, By Mouth, Every other day, # 15 tablet, 5 Refills, Maintenance, 03/20/21 14:49:00 EST, [facility]/pharmacy #[id number], Partial fill upon patient request if the prescription is for a schedule II opioid drug., 176, cm, 03/19/21 9:08:00 EST, Angus... Start Date: 03/20/21 Stop Date: 09/16/21 Status: Ordered metroNIDAZOLE 500 mg oral tablet 1 tablet = 500 mg, By Mouth, Every 12 hours, for 7 days, # 14 tablet, 0 Refills, Acute 04/20/21 0:26:00 EST, 04/13/21 0:26:00 EST, Tablet, [facility]/pharmacy #[id number], Partial fill upon patient request if theprescription is for a schedule II opioid drug., 176... Start Date: 04/13/21 Stop Date: 04/20/21 Status: Ordered PNV oral tablet 1 tablet, By Mouth, Daily, # 30 tablet, 9 Refills, Maintenance, 01/21/21 14:30:00 EDT, [facility]/pharmacy#[id number], Partial fill upon patient request if the prescription is for a schedule II opioid drug., 1 tablet By Mouth Daily, 176, cm, 01/21/21 14:12:00 EDT... Start Date: 01/21/21 Status: Ordered Multivitamins with Folic Acid 1 mg oral tablet 1 tablet, By Mouth, Daily, # 90 tablet, 2 Refills, Maintenance, 01/03/21 13:41:00 EDT, Tablet, [facility]/pharmacy #[id number], Partial fill upon patient request [...] tablet, 1 Refills, Maintenance, 11/26/20 10:35:00 EDT, [facility]/pharmacy #[id number], Partial fill upon patient request [...] Most recent to oldest [Reference Range]: 1 Oxygen Saturation [94-100 %] 98 % (04/12/21 2:46 PM) Blood Pressure [90-138/55-84 mm Hg] 123/ 69mm Hg (04/12/21 2:46 PM) Respiratory Rate [16-30 br/min] 20 br/mi n (04/12/21 2:46 PM) Temperature [96.8-100.4 DegF] 98.0 DegF (04/12/21 2:46 PM) Mode of Delivery (Oxygen) Room air (04/12/21 2:46 PM) Blood pressure sites Arm, left (04/12/21 2:46 PM) Temperature Route Oral (04/12/21 2:46 PM) Social History Social History Type Response Smoking Status Never smoker; Tobacc o user in household: No entered on: 05/20/17 Sex
--- OUTSIDE RECORDS SUMMARY | 2023-02-17 11:40 | XMS_ITS | Continuity of Care Document ---
Author Name Unknown Organization [facility] Address [address] [place] [address]- Care Team Providers Care Director Radio Name Role Phone Tanner PRADO, Arun Cross Primary Care Physician [phone] [facility]): 08/15/21 - 09/14/21 [facility] [employer] [facility] [address] [place], [place] [address] Allergies, Adverse Reactions, Alerts No Known Allergies Immunizations Given and Recorded Vaccine Date Status Refusal Reason SARS-CoV-2 mRNA ([id number]-tfht-[id number]) vax 07/23/21 Given tetanus/diphtheria/pertussis, acel(Tdap) 03/19/21 Given [...] rafael Measles/Mumps/Rubella Virus Vaccine 14 09/05/98 Gi rafeal Poliovirus Vaccine, Inactivated 15 05/04/01 Given Poliovirus [...] 06/14/21 5:15:00 EDT, Route to Pharmacy Electronically, [facility]/pharmacy #[id number], Partial fill upon patient request if [...] 06/14/21 5:15:00 EDT, Route to Pharmacy Electronically, [facility]/pharmacy #[id number], Partial fill upon patient request if the prescription is for a schedule II opioid drug... Start Date: 06/14/21 Status: Ordered ferrous sulfate 325 mg oral tablet 1 tablet = 325 mg, By Mouth, Every other day, # 15 tablet, 5 Refills, Maintenance, 03/20/21 14:49:00 EST, [facility]/pharmacy #[id number], Partial fill upon patient request if the prescription is for a schedule II opioid drug., 176, cm, 03/19/21 9:08:00 EST, Angus... Start Date: 03/20/21 Stop Date: 09/16/21 Status: Ordered ibuprofen 600 mg oral tablet 600 mg, 1, tablet, By Mouth, Every 6 hours, # 50 tablet, Refills 0, Tot. Refills 0, Maintenance, 06/14/21 5:15:00 EDT, Route to Pharmacy Electronically, [facility]/pharmacy #[id number], Partial fill upon patient request if the prescription is for a schedule II opi... Start Date: 06/14/21 Status: Ordered lidocaine 4% topical cream 1 application, Topically, 4 times a day, apply small amount to affected area, # 30 Gm, 0 Refills, Maintenance, 07/23/21 9:35:00 EDT, Cream, [facility]/pharmacy #[id number], may substitute cream/ointment/gel or 3,4 or 5%, whatever insurance covers, 1 application T... Start Date: 07/23/21 Status: Ordered Multivitamins with Folic Acid 1 mg oral tablet 1 tablet, By Mouth, Daily, # 90 tablet, 2 Refills, Maintenance, 01/03/21 13:41:00 EDT, Tablet, [facility]/pharmacy #[id number], Partial fill upon patient request if [...] 0 Refills, Maintenance, 06/14/21 5:15:00 EDT, Tablet, [facility]/pharmacy #[id number], Partial fill upon patient request if the [...]
--- NOTE | 2023-02-17 11:45 | MHC.OFFWIV ---
Intake Vital Signs 02/17/23 11:47 Height 5 ft 10 in Weight 279 lb BMI 40.0 BP 126/76 Blood Pressure Location Rt brachial Position Sitting Pulse 87 Pulse Source Pulse Oximeter Temp 97.0 F Temp Source Temporal Artery Scan Pulse Oximetry (%) 98 Oxygen Delivery Method Room Air Intake Visit Reasons: EST/stomach issues(lobby masked) Intake Note: pt is here for c/o stomach issues, cramping, diarrhea x2 weeks Patient Tobacco Use Status: Never used Tobacco Allergies No Known Allergies [No Known Allergies*] Allergy (Verified 02/17/23 11:47) Medication List - Last Reconciled 02/17/23 by Nisha Vargas PA-C ciprofloxacin HCl 500 mg PO Q12H desogestrel-ethinyl estradiol 0.15-0.03 mg (Apri) 1 tab PO DAILY 28 days Do you need a note to return to daycare/school/sports/work: Yes HPI HPI Comments History of Present Illness Details She presents to office with epigastric and lower abdominal pain Onset 2 weeks ago Last week went to the [facility] (pain before then) Was intermittent and now has gotten worse Previously she had pain like this and was diagnosed with parasitic infection and was + on stool sample. Her daughter was Tested last in [facility] for similar symptoms and was found to be + parasite on stool and is on antibiotics Right now 0/10 pain + intermittent sharp pain lasting 4-5 minutes Watery stool; no blood or black. Has been 1 week No fever but + chills No medicine taken No nausea or vomiting No chance No hx abdominal surgeries Denies urine symptoms PFSH Medical History BMI 38.0-38.9,adult Abdominal pain Juvenile arthritis Surgical History No pertinent past surgical history Family History Father Unknown family medical history Mother No problems noted. 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 Sexual orientation: Straight/Heterosexual Female Reproductive History Menstrual Age of Menarche: 15 Review of Systems Const Denies body aches, Denies chills, Denies fever(s) and Reports poor appetite Card Denies chest pain and Denies dyspnea Resp Denies cough and Denies dyspnea GI Reports abdominal pain, Denies melena, Denies hematochezia, Reports change in bowel habits, Reports GI cramping, Denies fecal incontinence, Reports diarrhea and Reports loose stools Denies hematuria, Denies difficulty voiding, Denies urinary incontinence, Denies urinary hesitancy and Denies urinary urgency Physical Exam Vital Signs: Last Vital Signs Temp 97.0 F 02/17/23 11:47 Pulse 87 02/17/23 11:47 BP 126/76 02/17/23 11:47 Pulse Ox 98 02/17/23 11:47 Oxygen Delivery Method Room Air 02/17/23 11:47 BMI result Body Mass Index 40.0 General: Non-toxic, NAD. Speaking full sentences. Skin: Warm dry throughout Eye: PERRL, EOMI HENT: Airway patent. Uvula midline. No pharyngeal erythema or edema. No HOUSEKEEPING MANAGER. Bilateral canals clear. TM non-erythematous, non-bulging. No TM perforation or hemotympanum noted. Respiratory: CTA bilaterally. No wheezes, rales or rhonchi Cardiac: RRR. No murmur Abdominal: BS present. Non-tender throughout. No palpable masses. No abdominal distention or pusatile mass. MSK: Full ROM extremities. Neurology: No aphasia or facial droop. Gait without abnormality Psych: Good mood and affect Assessment & Plan Assessment & Plan (1) Diarrhea: Code(s): R19.7 - Diarrhea, unspecified Qualifiers: Diarrhea type: presumed infectious Qualified Code(s): R19.7 - Diarrhea, unspecified Plan: Patient seen and evaluated. Vitals stable and mucosal membranes moist; no concern dehydration at this time Abdominal exam soft and non-distended. Stool culture (GI panel), giardia and O/P ordered and she will obtain in lab next door [place] diet and increase fluids Cipro to pharmacy (discussed side effects like tendon rupture) F/U with PCP ER protocol discussed abdominal pain, bloody or black stools, uncontrolled fever etc. Patient gave verbal understanding and had no additional questions or concerns at time of discharge All questions answered Orders: Orders Ova and Parasite Today R19.7 - Diarrhea, unspecified Giardia Ag Stool EIA Today R19.7 - Diarrhea, unspecified GI Panel Today R19.7 - Diarrhea, unspecified Medications: New ciprofloxacin HCl 500 mg PO Q12H 10 tabs 0RF R19.7 - Diarrhea, unspecified Coding Level of Care Code Est Pt Level 4 (50823) Diagnoses Diarrhea of presumed infectious origin R19.7 Diarrhea type: presumed infectious
[2023-02-17 11:47] VITALS: BP 126/76; PULSE 87; TEMP 36.1; O2SAT 98; BMI 40.0
== END 2023-02-17 13:03 | disposition home or self-care (01) ==
PROVIDERS: PCP Hospitalist; Visit Provider Physician Assistant
DX: R19.7 Diarrhea, unspecified (principal)
CPT/HCPCS: 99214

== ENCOUNTER 2023-02-17 12:18 | Outpatient (REF) | payer OTHER, SELFPAY ==
[2023-02-18 08:49] LABS: Syphilis Screen Nonreactive (Nonreactive)
[2023-02-18 09:09] LABS: HBc Num1 0.11 S/CO (0.00-0.79); HIV AB/AG Nonreactive (Nonreactive); HIV Num 1 0.07 S/CO (0.00-0.99); Hepatitis B Core Antibody Nonreactive (Nonreactive); ~HepC Num1 0.11 S/CO (0.00-0.79); ~Hepatitis C Antibody Nonreactive (Nonreactive)
[2023-02-19 12:25] LABS: Adenovirus F 40/41 Not Detected (Not Detect.); Astrovirus Not Detected (Not Detect.); Cryptosporidium Not Detected (Not Detect.); Cyclospora cayetanensis Not Detected (Not Detect.); E. coli EAEC Detected (Not Detect.); E. coli EPEC Detected (Not Detect.); E. coli ETEC Not Detected (Not Detect.); E. coli STEC Not Detected (Not Detect.); Entamoeba histolytica Not Detected (Not Detect.); Giardia lamblia Not Detected (Not Detect.); Norovirus GI/GII Not Detected (Not Detect.); Plesiomonas shigelloides Not Detected (Not Detect.); Rotavirus A Not Detected (Not Detect.); Salmonella Not Detected (Not Detect.); Sapovirus Not Detected (Not Detect.); Shigella sp./EIEC Not Detected (Not Detect.); Vibrio Not Detected (Not Detect.); Vibrio Cholerae Not Detected (Not Detect.); Yersinia enterocolitica Not Detected (Not Detect.)
[2023-02-19 15:35] LABS: Campylobacter Detected (Not Detect.)
== END 2023-02-17 12:19 | disposition home or self-care (01) ==
LOC: HO.HMGCLDS 12:18
PROVIDERS: Advanced Practice Midwife; PCP Hospitalist; Visit Provider Physician Assistant
DX: Z11.4 Encounter for screening for human immunodeficiency virus [HIV] (principal); Z20.2 Contact with and (suspected) exposure to infections with a predominantly sexual mode of transmission; R19.7 Diarrhea, unspecified
CPT/HCPCS: 36415; 86704; 86780; 86803; 87177; 87209; 87329; 87389; 87507

== ENCOUNTER 2023-02-24 08:10 | Outpatient (AMB) | payer OTHER, SELFPAY ==
--- NOTE | 2023-02-24 14:13 | MHC.OFFVISWM ---
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 Skips on weekdays Lunch: 2pm (rice and chicken) Dinner: 6pm-7pm (as lunch) Snacks: 4pm (crackers), occasionally ice cream bar after dinner Exercise: none Fluids: Coffee: none, tea: none, soda: none, juice: rarely, ETOH: rarely PFSH Medical History (Updated 02/24/23 @ 14:17 by Maxime Gamino MD) Morbid obesity BMI 38.0-38.9,adult Abdominal pain Juvenile arthritis Surgical History No pertinent past surgical history Family History Father Unknown family medical history Mother No problems noted. 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 Plan for lap sleeve gastrectomy. If diaphragmatic or ventral hernias are present at time of surgery, these will be repaired laparoscopically as well. Risks and complications were discussed in detail including possible conversion to an open procedure, anastomotic leak, bleeding requiring transfusion, small bowel obstruction, , DVT and pulmonary embolism, cardiac, or pulmonary complications, as adjunct faculty for medical terminology complications such as anastomotic ulcer, insufficient weight loss and vitamin deficiencies. I emphasized the importance of close follow-up, adherence to instructions and good communication. 2. Nutritional counseling. Start with 2 CELEBRATE REBUILD protein (buy at [facility] [employer] [facility]) shakes (ONE scoop EACH in 8oz low fat unsweetened almond milk each) at 7am-9am and 10am-12pm, 2 protein bars (CELEBRATE protein bars, buy at [facility] [employer] [facility]) at 1pm-3pm and 4pm-6pm, dinner at 7pm (10 forks of protein and 10 forks of salad/vegetables) AND one more protein bar after dinner at 9pm-11pm. So you do 2 protein shakes, 3 protein bars and one meal per day. Meal to include lean meat (beef, fish, pork, turkey, chicken), or japanese yogurt, or egg whites, or beans with a salad with olive oil and fruits (berries, pears, apples, kiwi). Avoid salt, breads, potatoes, rice, pasta, desserts. 3. Each shake would be drunk slowly, like coffee in a period of 2 hours. 4. Cut each bar in 4 pieces and eat each piece in 30min to make each bar last 2 hours. 5. I emphasized the importance of measuring accurately the food portion and measure it when serving the food in plate 6. The meal portions include 10 full-size forks of meat and 10 full-size forks of salad. You always eat the meat portion but you can replace up to 5 forks for salad/vegetables with rice, potatoes or pasta, or a fruit if you like. The less you do it the better weight loss will be. 7. One full-size fork is what it can be scooped on the fork without falling aside and not what can be bit with the fork. Use regular forks like those you find in a typical restaurant. 8. Please send me weight measurements as soon as possible and then once a week. Always include your diet and exercise plan. Alternatively come weekly at the office for weight checks and send me the measurements. 9. If you join a Gym please start treadmill with an incline of 2.0 and speed of 3.0. Increase incline by 1 every 3 min to a max incline of 8.0, stay 3min at 8.0 and then return to 2.0 and repeat same steps until calorie goal is met. Goal is to burn 2000 calories per week on exercise, which means either 300 calories daily, or 400 calories 5 days per week, or 500 calories 4 days per week, or 650 calories 3 days per week. 10. Alternatively until you decide if you will join a gym or buy an aerobic equipment at home, start walking outside daily, tracking calories with a goal of 300 calories per day, daily. Goal is to burn 2000 calories per week on exercise, which means either 300 calories daily, or 400 calories 5 days per week, or 500 calories 4 days per week, or 650 calories 3 days per week. 11. The best choice would be to purchase a stationary bike, elliptical or treadmill at home that can track calories. Let me know if you do so I can give you an exercise plan. 12. It is important of avoiding and for at least 18 months postoperatively and has been discussed at the infosession. 13. Goal is to lose at least 1.5-2lbs per week 14. Goal to lose 10% of your weight before surgery, which is about 28lbs. Ultimate weight goal: 251lbs before surgery 15. Please follow the diet plan exactly without any change. If you don't like something about the plan or you feel hungry you need to communicate with me so I can help you revise the plan. You should not change the plan yourself. 16. To be scheduled for EGD due to history of GERD. The possibility of biopsies was discussed. Patient needs to avoid use of NSAIDs and aspirin for 1 week prior to EGD. Risks of perforation and bleeding was discussed with the patient. This will be an outpatient procedure with IV sedation. Orders: Orders Hemoglobin A1c Today E66.01 - Morbid (severe) obesity due to excess calories Complete Blood Count Auto Diff Today E66.01 - Morbid (severe) obesity due to excess calories Lipid Panel Today E66.01 - Morbid (severe) obesity due to excess calories IRON PROFILE Today E66.01 - Morbid (severe) obesity due to excess calories Comprehensive Met. Panel Today E66.01 - Morbid (severe) obesity due to excess calories Zinc Today E66.01 - Morbid (severe) obesity due to excess calories Ferritin Today E66.01 - Morbid (severe) obesity due to excess calories Insulin Today E66.01 - Morbid (severe) obesity due to excess calories H Pylori Breath Test Today E66.01 - Morbid (severe) obesity due to excess calories Vitamin B12 and Folate Today E66.01 - Morbid (severe) obesity due to excess calories C Reactive Protein Today E66.01 - Morbid (severe) obesity due to excess calories Vitamin B1 Today E66.01 - Morbid (severe) obesity due to excess calories Vitamin A Today E66.01 - Morbid (severe) obesity due to excess calories TSH reflex Free T4 Today E66.01 - Morbid (severe) obesity due to excess calories Vitamin D 25-OH Total Today E66.01 - Morbid (severe) obesity due to excess calories US abdomen comp w elastography Today E66.01 - Morbid (severe) obesity due to excess calories XR chest 2V Today E66.01 - Morbid (severe) obesity due to excess calories ECG 12 lead EKG Today E66.01 - Morbid (severe) obesity due to excess calories FL upper GI w air Today E66.01 - Morbid (severe) obesity due to excess calories Referrals Behavioral Health Referral E66.01 - Morbid (severe) obesity due to excess calories Nutrition/Dietitian Referral E66.01 - Morbid (severe) obesity due to excess calories Telehealth Telehealth Location of provider rendering services: practice address Location of patient: address on file Patient Identification confirmed using: Name, : Yes Telehealth method: voice only Patient verbally consented to treatment: Yes Patient verbally consented to billing insurance company: Yes Patient informed of any privacy concerns related to visit: Yes Minutes spent on Phone/Video with Pt.: 54 Coding Level of Care Code Tele [facility] Pt Level 4 (28342) Diagnoses Morbid obesity E66.01 Time Spent (min) 54
[2023-02-24 14:22] VITALS: BMI 40.1
== END 2023-02-24 15:00 | disposition home or self-care (01) ==
LOC: HO.HBS 08:10
PROVIDERS: PCP Hospitalist; Visit Provider Surgery
DX: E66.01 Morbid (severe) obesity due to excess calories (principal)
CPT/HCPCS: 99204

== ENCOUNTER → 2023-02-24 08:10 | Outpatient (BNVA) | payer OTHER, SELFPAY | PROVIDERS: PCP Hospitalist; Visit Provider Surgery ==

== ENCOUNTER 2023-03-20 09:43 | Outpatient (REF) | payer OTHER, SELFPAY ==
[2023-03-20 10:11] LABS: MANUAL DIFF FLAG NO
[2023-03-20 10:32] LABS: Basophils Percent Auto 0.5 % (0-2); Eosinophils Absolute Auto 0.2 X10*3/uL (0.0-0.4); Eosinophils Percent Auto 2.6 % (0-4); Hematocrit 40.3 % (37.0-47.0); Hemoglobin 12.1 g/dl (12.0-16.0); Imm Gran Abs Auto 0.02 X10*3/uL (0.00-0.03); Imm Gran Pct Auto 0.3 % (0.0-0.4); Lymphocytes Absolute Auto 3.3 X10*3/uL (1.2-4.9); Lymphocytes Percent Auto 49.9 % (20-40); Mean Corpuscular Hemoglobin 21.8 pg (27.0-33.0); Mean Corpuscular Volume 72.6 fL (80.0-98.0); Mean Platelet Volume 9.8 fL (9.4-12.3); Monocytes Absolute Auto 0.4 X10*3/uL (0.1-1.2); Monocytes Percent Auto 5.3 % (2-11); Neutrophils Absolute Auto 2.7 x10*3/uL (2.0-8.3); Neutrophils Percent Auto 41.4 % (45-73); Platelet Count 215 X10*3/uL (160-400); Red Blood Count 5.55 X10*6/uL (4.20-5.50); Red Cell Distribution Width 18.1 % (11.0-16.0); White Blood Count 6.6 X10*3/uL (4.8-10.8)
[2023-03-20 10:43] LABS: Estimated Average Glucose 103 mg/dL; Hemoglobin A1c % 5.2 % (<6.0)
[2023-03-20 11:01] LABS: Alanine Aminotransferase 24 U/L (0-31); Albumin Level 3.9 g/dL (3.5-5.0); Alkaline Phosphatase 99 U/L (39-117); Anion Gap 13 (12-20); Aspartate Amino Transferase 24 U/L (5-31); Bilirubin Total 0.3 mg/dL (0.0-1.0); Blood Urea Nitrogen 13 mg/dL (9-16); C Reactive Protein 1.65 mg/dL (< or = 0.50); Calcium 9.1 mg/dL (8.4-10.2); Carbon Dioxide 21 mmol/L (22-29); Chloride 109 mmol/L (96-108); Cholesterol 140 mg/dL (<200); Estimated Glomerular Filt Rate > 60; Glucose Random 79 mg/dL (60-115); HDL Cholesterol 34 mg/dL (>40); Iron 27 mcg/dL (30-160); LDL Cholesterol Calculated 81 mg/dL (<100); Percent Iron Saturation 7 % (15-50); Sodium 139 mmol/L (135-145); Total Iron Binding Capacity 375 mcg/dL (228-428); Total Protein 7.6 g/dL (6.5-8.0); Triglycerides 129 mg/dL (<150); Unsaturated Iron Binding 348 ug/dL
[2023-03-20 11:17] LABS: Ferritin 14 ng/mL (10-122); Insulin 11 uU/mL (2-29); TSH reflex Free T4 1.73 uIU/mL (0.32-4.0); Vitamin D 25-OH Total 29.7 ng/mL (>30)
[2023-03-20 11:29] LABS: Folate 6.8 ng/mL (> or = 4.0); Vitamin B12 550 pg/mL (200-900)
[2023-03-24 16:04] LABS: Zinc 75 mcg/dL (60-130)
[2023-03-25 04:28] LABS: Vitamin A 28 mcg/dL (38-98)
[2023-03-26 15:48] LABS: Vitamin B1 9 nmol/L (8-30)
== END 2023-03-20 09:44 | disposition home or self-care (01) ==
LOC: HO.XRAY 09:43
PROVIDERS: Visit Provider Surgery
DX: E66.01 Morbid (severe) obesity due to excess calories (principal)
CPT/HCPCS: 36415; 71046; 80053; 80061; 82306; 82607; 82728; 82746; 83036; 83525; 83540; 84425; 84443; 84590; 84630; 85025; 86140

== ENCOUNTER → 2023-03-25 09:22 | Outpatient (REF) | payer OTHER, SELFPAY | LOC: HO.CARD 09:22 | PROVIDERS: Visit Provider Surgery | DX: E66.01 Morbid (severe) obesity due to excess calories (principal) | CPT/HCPCS: 93005 ==

== ENCOUNTER → 2023-03-25 09:26 | Outpatient (BNV) | payer OTHER, SELFPAY | PROVIDERS: Visit Provider Internal Medicine Cardiovascular Disease | DX: E66.01 Morbid (severe) obesity due to excess calories (principal) | CPT/HCPCS: 93010 ==

== ENCOUNTER 2023-03-26 08:06 | Outpatient (AMB) | payer OTHER, SELFPAY ==
--- NOTE | 2023-03-26 14:02 | MHC.OFFVISWM ---
Intake VS Expanded 03/26/23 14:12 Height 5 ft 10 in Weight 271 lb 1 oz BMI 38.9 Body Fat % 48.7 Body Fat Mass 132 Fat Free Mass 139.1 Visceral Fat Rating 20 Body Water % 35.2 Body Water Mass 95.4 Basal Metabolic Rate/Score 1,741 Intake Visit Reasons: TV Follow Up SWL - 1ST Allergies No Known Allergies [No Known Allergies*] Allergy (Verified 02/24/23 14:14) HPI TV Follow Up SWL - 1ST HPI Details Start time: 1.55pm, End time: 2.20pm ?I spent 20 minutes speaking with the patient on the phone plus an additional 5 minutes reviewing and updating records for a total of 25 minutes HPI Comments History of Present Illness Details Overall weight loss: 8.7lbs, or 3.1% TBWL Has reduced her portions and eating healthier She just purchased the protein shakes and bars and will begin the nutritional plan today [facility] Medical History (Updated 03/25/23 @ 17:44 by Maxime Gamino MD) Morbid obesity BMI 38.0-38.9,adult Abdominal pain Juvenile arthritis Surgical History No pertinent past surgical history Family History Father Unknown family medical history Mother No problems noted. 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 Nutritional counseling. Start with 2 CELEBRATE REBUILD protein (buy at [facility]) shakes (ONE scoop EACH in 8oz low fat unsweetened almond milk each) at 7am-9am and 10am-12pm, 2 protein bars (CELEBRATE protein bars, buy at [facility] [facility]) at 1pm-3pm and 4pm-6pm, dinner at 7pm (10 forks of protein and 10 forks of salad/vegetables) AND one more protein bar after dinner at 9pm-11pm. So you do 2 protein shakes, 3 protein bars and one meal per day. Meal to include lean meat (beef, fish, pork, turkey, chicken), or bengali yogurt, or egg whites, or beans with a salad with olive oil and fruits (berries, pears, apples, kiwi). Avoid salt, breads, potatoes, rice, pasta, desserts. 2. Each shake would be drunk slowly, like coffee in a period of 2 hours. 3. Cut each bar in 4 pieces and eat each piece in 30min to make each bar last 2 hours. 4. I emphasized the importance of measuring accurately the food portion and measure it when serving the food in plate 5. The meal portions include 10 full-size forks of meat and 10 full-size forks of salad. You always eat the meat portion but you can replace up to 5 forks for salad/vegetables with rice, potatoes or pasta, or a fruit if you like. The less you do it the better weight loss will be. 6. One full-size fork is what it can be scooped on the fork without falling aside and not what can be bit with the fork. Use regular forks like those you find in a typical restaurant. 7. Please send me weight measurements as soon as possible and then once a week. Always include your diet and exercise plan. Alternatively come weekly at the office for weight checks and send me the measurements. 8. Start treadmill with an incline of 2.0 and speed of 3.0. Increase incline by 1 every 3 min to a max incline of 8.0, stay 3min at 8.0 and then return to 2.0 and repeat same steps until calorie goal is met. Goal is to burn 2000 calories per week on exercise, which means either 300 calories daily, or 400 calories 5 days per week, or 500 calories 4 days per week, or 650 calories 3 days per week. 9. It is important of avoiding and for at least 18 months postoperatively and has been discussed at the infosession. 10. Goal is to lose at least 1.5-2lbs per week 11. Goal to lose 10% of your weight before surgery, which is about 28lbs. Ultimate weight goal: 251lbs before surgery 12. Please follow the diet plan exactly without any change. If you don't like something about the plan or you feel hungry you need to communicate with me so I can help you revise the plan. You should not change the plan yourself. 13. To be scheduled for EGD due to history of GERD. The possibility of biopsies was discussed. Patient needs to avoid use of NSAIDs and aspirin for 1 week prior to EGD. Risks of perforation and bleeding was discussed with the patient. This will be an outpatient procedure with IV sedation. Telehealth Telehealth Location of provider rendering services: practice address Location of patient: address on file Patient Identification confirmed using: Name, : Yes Telehealth method: voice only Patient verbally consented to treatment: Yes Patient verbally consented to billing insurance company: Yes Patient informed of any privacy concerns related to visit: Yes Minutes spent on Phone/Video with Pt.: 25 Coding Level of Care Code Tele Est Pt Level 3 (96430) Diagnoses Morbid obesity E66.01 Time Spent (min) 25
[2023-03-26 14:12] VITALS: BMI 38.9
== END 2023-03-26 14:21 | disposition home or self-care (01) ==
LOC: HO.HBS 08:06
PROVIDERS: PCP Internal Medicine; Visit Provider Surgery
DX: E66.01 Morbid (severe) obesity due to excess calories (principal)
CPT/HCPCS: 99213

== ENCOUNTER → 2023-03-26 08:06 | Outpatient (BNVA) | payer OTHER, SELFPAY | PROVIDERS: PCP Internal Medicine; Visit Provider Surgery ==

== ENCOUNTER 2023-04-16 11:11 | Outpatient (AMB) | payer OTHER, SELFPAY ==
--- NOTE | 2023-04-16 11:05 | MHC.AMNUTRGE ---
Intake Intake Visit Reasons: VIDEO Initial Nutrition SWL Allergies No Known Allergies [No Known Allergies*] Allergy (Verified 02/24/23 14:14) HPI Nutrition Presentation Reason for consult elevated BMI Diet Assmnt Details pt states she is following her plan from Dr. Gamino and is content with it, no concerns. dinner has chicken in the air fryer, or oven baked, or grilled with a vegetable (salad, broccoli, or carrots) cooks for herself and 1 year old daughter Lives with margaret who is joining our program and having an appt with Dr. Gamino soon Exercise: minimal . gets out of work at 5:30pm . goes into work at 6:45am but normally goes in at 9:30am . We tallked about potentially getting a gym membership but she doesn't think thats feasible. Is interested in doing at home workouts so i provided resources. SWL classes: none Dietary counseling reduction Diagnosis Nutrition problem #1 overweight/obesity As related to (etiology) #1 excess energy intake and physical inactivity As evidenced by (sign/symptom) #1 high BMI Monitoring/Goals Nutrition problem monitoring total energy intake, level of knowledge/skill, total PRO intake, total CHO intake and weight Outcome progress progressing Learning/Education Readiness to learn fair Stages of change action Educational materials provided Yes Most Recent Diabetes Results: Cholesterol 140 mg/dL (<200) 03/20/23 HDL Cholesterol 34 mg/dL (>40) L 03/20/23 Triglycerides 129 mg/dL (<150) 03/20/23 Creatinine 0.64 mg/dL (0.5-1.4) 03/20/23 Blood Urea Nitrogen 13 mg/dL (9-16) 03/20/23 Sodium 139 mmol/L (135-145) 03/20/23 Potassium 4.0 mmol/L (3.3-5.1) 03/20/23 Chloride 109 mmol/L (96-108) H 03/20/23 Carbon Dioxide 21 mmol/L (22-29) L 03/20/23 Calcium 9.1 mg/dL (8.4-10.2) 03/20/23 AST 24 U/L (5-31) 03/20/23 ALT 24 U/L (0-31) 03/20/23 Total Protein 7.6 g/dL (6.5-8.0) 03/20/23 Albumin 3.9 g/dL (3.5-5.0) 03/20/23 [facility] Medical History (Updated 03/25/23 @ 17:44 by Maxime Gamino MD) Morbid obesity BMI 38.0-38.9,adult Abdominal pain Juvenile arthritis Surgical History No pertinent past surgical history Family History Father Unknown family medical history Mother No problems noted. 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 Sexual orientation: Straight/Heterosexual Female Reproductive History Menstrual Age of Menarche: 15 Assessment & Plan Assessment & Plan (1) Morbid obesity: Code(s): E66.01 - Morbid (severe) obesity due to excess calories Plan Will be seen again on 05/13 at 8:30 am Telehealth Telehealth Location of provider rendering services: practice address Location of patient: other (work, private room ) Patient Identification confirmed using: Name, : Yes Telehealth method: voice only Patient verbally consented to treatment: Yes Patient verbally consented to billing insurance company: Yes Patient informed of any privacy concerns related to visit: Yes Minutes spent on Phone/Video with Pt.: 25 Coding Level of Care Code Nutr Indiv Intake (72275) Diagnoses Morbid obesity E66.01 Time Spent (min) 25
== END 2023-04-16 11:25 | disposition home or self-care (01) ==
LOC: HO.HBS 11:11
PROVIDERS: PCP Internal Medicine; Visit Provider Dietitian, Registered
DX: E66.01 Morbid (severe) obesity due to excess calories (principal)

== ENCOUNTER → 2023-04-16 11:11 | Outpatient (BNVA) | payer OTHER, SELFPAY | PROVIDERS: PCP Internal Medicine; Visit Provider Dietitian, Registered | DX: E66.01 Morbid (severe) obesity due to excess calories (principal); Z71.3 Dietary counseling and surveillance | CPT/HCPCS: 97802 ==

== ENCOUNTER 2023-04-19 08:09 | Outpatient (AMB) | payer OTHER, SELFPAY ==
--- NOTE | 2023-04-19 14:06 | A.OFFVIS_ITS ---
Intake VS Expanded 04/19/23 14:13 Height 5 ft 10 in Weight 270 lb BMI 38.7 Body Fat % 48.5 Body Fat Mass 130.9 Fat Free Mass 139 Visceral Fat Rating 20 Body Water % 35.3 Body Water Mass 95.3 Basal Metabolic Rate/Score 1,734 Intake Visit Reasons: TV Follow Up SWL Allergies No Known Allergies [No Known Allergies*] Allergy (Verified 02/24/23 14:14) HPI TV Follow Up SWL HPI Details Start time: 1.58pm, End time: 2.18pm ?I spent 15 minutes speaking with the patient on the phone plus an additional 5 minutes reviewing and updating records for a total of 20 minutes HPI Comments History of Present Illness Details Overall weight loss: 9.8lbs, or 3.5% TBWL Is doing 2 Celebrate Rebuild protein shakes (1 scoop in 8oz almond milk), 2 Celebrate protein bars and one meal (10 forks of protein and 10 forks of salad) Exercise: walking outside, gym. Is buying [employer] Medical History (Updated 04/19/23 @ 14:16 by Maxime Gamino MD) Morbid obesity BMI 38.0-38.9,adult Abdominal pain Juvenile arthritis Surgical History No pertinent past surgical history Family History Father Unknown family medical history Mother No problems noted. 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 Continue same nutritional plan of 2 Celebrate Rebuild protein shakes (1 scoop in 8oz almond milk), 2 Celebrate protein bars and one meal (10 forks of protein and 10 forks of salad). 2. Start Elliptical with an incline of 2.0 and resistance of 4.0. Increase resistance by 1 every 3 min to a max resistance of 10.0, and repeat cycles for 300 calories. 3. Send weight measurements weekly on Tuesdays Orders: Orders CA echo transthorac w con Today I51.7 - Cardiomegaly Telehealth Telehealth Location of provider rendering services: practice address Location of patient: address on file Patient Identification confirmed using: Name, : Yes Telehealth method: voice only Patient verbally consented to treatment: Yes Patient verbally consented to billing insurance company: Yes Patient informed of any privacy concerns related to visit: Yes Minutes spent on Phone/Video with Pt.: 20 Coding Level of Care Code Tele Est Pt Level 3 (85803) Diagnoses Class 2 severe obesity due to excess calories with serious comorbidity and body mass index (BMI) of 38.0 to 38.9 in adult E66.01; Z68.38 Obesity type: due to excess calories Obesity classification: adult class 2 (BMI 35 - 39.9) Serious obesity comorbidity presence: with serious comorbidity Body mass index: BMI 38.0-38.9 Time Spent (min) 20
[2023-04-19 14:13] VITALS: BMI 38.7
== END 2023-04-19 14:18 | disposition home or self-care (01) ==
LOC: HO.HBS 08:09
PROVIDERS: PCP Internal Medicine; Visit Provider Surgery
DX: E66.01 Morbid (severe) obesity due to excess calories (principal); Z68.38 Body mass index [BMI] 38.0-38.9, adult
CPT/HCPCS: 99213

== ENCOUNTER → 2023-04-19 08:09 | Outpatient (BNVA) | payer OTHER, SELFPAY | PROVIDERS: PCP Internal Medicine; Visit Provider Surgery ==

== ENCOUNTER 2023-04-27 | Outpatient (REF) | payer OTHER, SELFPAY ==
[2023-05-01 12:15] LABS: H Pylori Breath Test Negative (Negative)
== END 2023-04-27 00:01 | disposition home or self-care (01) ==
LOC: HO.LNP
PROVIDERS: Visit Provider Surgery
DX: E66.01 Morbid (severe) obesity due to excess calories (principal); Z11.2 Encounter for screening for other bacterial diseases
CPT/HCPCS: 83013

== ENCOUNTER 2023-04-27 08:27 | Outpatient (AMB) | payer OTHER, SELFPAY ==
--- NOTE | 2023-04-27 08:28 | MHC.OFFVIS ---
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 She reports breast tenderness, nausea, something moving around in her tummy, she read ports missing her pill and stopped them overall 2 weeks ago. She had some unscheduled bleeding from March 30 to , and then bled again on April 06. She reports unprotected intimacy April 05 and April 13. Urine test is negative today she reports that a urine test was negative in the last at she required blood testing to validate. If she is she is okay with being . [facility] Medical History (Updated 04/19/23 @ 14:16 by Maxime Gamino MD) Morbid obesity BMI 38.0-38.9,adult Abdominal pain Juvenile arthritis Surgical History No pertinent past surgical history Family History Father Unknown family medical history Mother No problems noted. 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 Sexual orientation: Straight/Heterosexual Female Reproductive History Menstrual Age of Menarche: 15 Date of last menstrual period: 03/10/23 control method: pills Total pregnancies: 1 Full term: 1 Number of Living Children: 1 Date of last pap smear: 04/17/20 (neg) Review of Systems Const All systems reviewed & are unremarkable except as noted in HPI and below Endo Reports no additional complaints Physical Exam Vital Signs: Last Vital Signs BP 120/74 04/27/23 08:29 BMI result Body Mass Index 39.7 Const General: cooperative, healthy appearing and no acute distress Psych Appearance: well kempt Attitude: cooperative Thought process: Normal thought process present Results AMB Test Urine AMB Test Urine Negative Last Edit by NAVID Mathis on 04/27/23 08:44 Results Reviewed Results Reviewed: Laboratory Last Values [facility] Negative 04/27/23 08:43 Assessment & Plan Assessment & Plan (1) Irregular menses: Code(s): N92.6 - Irregular menstruation, unspecified Plan Discussed: Plan to repeat the test via lab work. If negative she does want to proceed to switching to Depo-Provera I advised her to follow-up in several days as she is expecting to have her menstrual cycle this week once we confirm she has had 2 weeks of no unprotected intimacy and negative test she most likely will be able to start Depo-Provera this Wednesday. We can use the hospital pharmacy for convenience for her. All of her questions and concerns were addressed to the best of my ability and shared decision making. She is agreeable to the plan of care. Return to the off the office this Wednesday for checking status and starting control if no other contraindications. Orders: Orders HCG Quantitative Today N92.6 - Irregular menstruation, unspecified AMB HCG Urine Test Today N92.6 - Irregular menstruation, unspecified Coding Level of Care Code Est Pt Level 3 (63287) Diagnoses Irregular menses N92.6
[2023-04-27 08:29] VITALS: BP 120/74; BMI 39.7
== END 2023-04-27 09:13 | disposition home or self-care (01) ==
PROVIDERS: PCP Hospitalist; Visit Provider Advanced Practice Midwife
DX: N92.6 Irregular menstruation, unspecified (principal)
CPT/HCPCS: 99213

== ENCOUNTER → 2023-04-27 08:27 | Outpatient (BNVA) | payer OTHER, SELFPAY | PROVIDERS: PCP Hospitalist; Visit Provider Advanced Practice Midwife | DX: E66.01 Morbid (severe) obesity due to excess calories (principal); Z32.02 Encounter for pregnancy test, result negative; N92.6 Irregular menstruation, unspecified; F90.8 Attention-deficit hyperactivity disorder, other type; Z68.39 Body mass index [BMI] 39.0-39.9, adult | CPT/HCPCS: 81025; 99211; 99212 ==

== ENCOUNTER 2023-04-27 09:35 | Outpatient (AMB) | payer OTHER, SELFPAY ==
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
== END 2023-04-27 13:00 | disposition home or self-care (01) ==
LOC: HO.HBST 09:35
PROVIDERS: PCP Hospitalist; Visit Provider Counselor Mental Health
DX: F90.8 Attention-deficit hyperactivity disorder, other type (principal); E66.01 Morbid (severe) obesity due to excess calories; Z68.38 Body mass index [BMI] 38.0-38.9, adult
CPT/HCPCS: 90791

== ENCOUNTER 2023-04-30 08:51 | Outpatient (REF) | payer OTHER, SELFPAY ==
--- NOTE | ~2023-04-30 | US_ITS ---
EXAMINATION: US COMPLETE ABDOMEN WITH LIVER ELASTOGRAPHY CLINICAL INFORMATION: Morbid obesity. COMPARISON: CT abdomen pelvis dated 09/27/2017. TECHNIQUE: Real-time imaging of the abdominal viscera. Noninvasive ultrasound liver fibrosis assessment is performed using Allison ElastPQ point quantification shear wave elastography (2D-SWE) with a C5-2 MHz transducer. Multiple elastography samples are obtained. FINDINGS: PANCREAS: Normal. The visualized pancreatic head and body are normal in appearance. The remainder of the pancreas is obscured from visualization by the overlying bowel gas. ABDOMINAL AORTA: The proximal, middle, and distal aortic segments are normal in caliber. INFERIOR VENA CAVA: Visualized portions are normal. LIVER: The liver demonstrates normal size, contour and increased echogenicity. No focal lesion or intrahepatic biliary duct dilatation. The right lobe measures 14.7 cm in length. The left lobe measures 13.4 cm in length. Portal flow is towards the liver (hepatopetal). Shear wave liver elastography median stiffness is 1.59 m/s (reference: normal median stiffness is 1.3 m/s or less). IQR/median stiffness to assess sampling precision is 0.01 (reference: good quality data set is IQR/median stiffness of 0.15 or less). GALLBLADDER: Normal. The gallbladder is physiologically distended without evidence of stones, sludge, polyps, wall thickening or pericholecystic fluid. COMMON BILE DUCT: Normal in caliber measuring 0.3 cm in diameter. RIGHT KIDNEY: Normal. There is an extrarenal pelvis, without angeles hydronephrosis. No renal calculi or focal parenchymal lesions. The kidney measures 13.5 cm in maximum dimension. LEFT KIDNEY: Normal. There is an extrarenal pelvis, without angeles hydronephrosis. No renal calculi or focal parenchymal lesions. The kidney measures 12.8 cm in maximum dimension. SPLEEN: Normal. The spleen measures 11.2 cm in maximum dimension. FREE FLUID: None. US/US abdomen comp w elastography IMPRESSION: 1. There is generalized increase in hepatic echotexture, consistent with fatty infiltration or hepatocellular disease. Please correlate clinically. No focal hepatic mass or intrahepatic biliary dilatation is seen. 2. Liver elastography: In the absence of other known clinical signs, measurements rule out compensated advanced chronic liver disease. If there are known clinical signs, further testing may be needed for confirmation. REFERENCE: Society of Radiologists in Ultrasound Liver Stiffness Thresholds (2020): LIVER STIFFNESS THRESHOLDS: *Liver Stiffness equal or less than 1.3 m/s: High probability of being normal. *Liver Stiffness less than 1.7 m/s: In the absence of other known clinical signs, rules out compensated advanced chronic liver disease. *Liver Stiffness 1.7-2.1 m/s: Suggestive of compensated advanced chronic liver disease but need further test for confirmation. *Liver Stiffness over 2.1 m/s: Rules in compensated advanced chronic liver disease. *Liver Stiffness over 2.4 m/s: Suggestive of clinically significant portal hypertension. QUALITY OF DATA SET: *IQR/Median value equal or less than 0.15 implies a quality data set. *IQR/Median value over 0.15 implies a poor quality data set. SIGNIFICANT CHANGE FROM PRIOR EXAM: Significant change if liver stiffness measurement is 10% or greater from prior exam. OTHER CONSIDERATIONS: The stage of liver fibrosis may be overestimated in the setting of acute hepatitis, liver inflammation, elevated liver function tests, hepatic vascular congestion, obstructive cholestasis, non-fasting state, and infiltrative diseases such as amyloidosis and lymphoma. In some patients with NAFLD, the liver stiffness thresholds for compensated advanced chronic liver disease may be lower. In causes other than viral hepatitis and NAFLD, liver stiffness thresholds are not well established.
[2023-04-30 10:45] LABS: HCG Quantitative < 2 mIU/mL
== END 2023-04-30 08:52 | disposition home or self-care (01) ==
LOC: HO.US 08:51
PROVIDERS: Absent Provider Advanced Practice Midwife; PCP Internal Medicine; Visit Provider Surgery
DX: E66.01 Morbid (severe) obesity due to excess calories (principal); N92.6 Irregular menstruation, unspecified
CPT/HCPCS: 36415; 76700; 76981; 84702

== ENCOUNTER 2023-05-07 08:00 | Outpatient (AMB) | payer OTHER, SELFPAY ==
--- NOTE | 2023-05-07 08:02 | A.OFFVIS_ITS ---
Intake Vital Signs 05/07/23 08:03 Height 5 ft 10 in Weight 275 lb 9.245 oz BMI 39.5 Intake Visit Reasons: UPT and depo Intake Note: Here to restart depo Regional Facilities Specialist Required: No Information Interpreted: non-clinical & clinical Automotive Teacher: Automotive Teacher Present Accompanied by: Self / Same As Patient Allergies No Known Allergies [No Known Allergies*] Allergy (Verified 05/07/23 08:10) Is last menstrual period known: Yes Last menstrual period: 05/01/23 HPI HPI Comments History of Present Illness Details Patient is here today for a Depo restart. She denies any risk to . She completed a normal cycle this month. She was counseled on Depo-Provera risks side effects and frequency of dosing/administration. She denies any contraindications to control such as: migraines with aura, history of DVT or pulmonary emboli, high blood pressure, liver disease, thrombolic disorders, Lupus, +HUMBLE, breast cancer, or smoking. [facility] Medical History (Updated 05/07/23 @ 08:25 by Lurdes Momin CNM) Initiation of Depo Provera Morbid obesity BMI 38.0-38.9,adult Abdominal pain Juvenile arthritis Surgical History No pertinent past surgical history Family History Father Unknown family medical history Mother No problems noted. 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 Sexual orientation: Straight/Heterosexual Female Reproductive History Menstrual Age of Menarche: 15 Date of last menstrual period: 05/01/23 Review of Systems Const All systems reviewed & are unremarkable except as noted in HPI and below Endo Reports no additional complaints Physical Exam Vital Signs: BMI result Body Mass Index 39.5 Const General: cooperative, healthy appearing and no acute distress Psych Appearance: well kempt Attitude: cooperative Thought process: Normal thought process present Office Procedures Depo Questionnaire If YES to any of the following questions, please consult a provider. Date of last menstrual period: 02/10/24 Menstrual pattern since last injection has been: Normal test in office results: Negative Irregular bleeding?: No Breast lumps or other breast changes?: No Changes in weight or appetite?: No Depression or changes in mood?: No Abnormal hair growth or loss?: No Skin problems (rash, acne, discoloration)?: No Pain at the injection site?: No Headaches?: No Nervousness?: No Abdominal pain or cramping?: No Dizziness or nausea?: No Fatigue or weakness?: No Decrease in sexual drive?: No Chest pain or shortness of breath?: No Swelling in arms or legs?: No Form completed by?: Pao Taveras preschool paraprofessional Meds Depo-Provera 150 mg/mL intramuscular syringe Performing Provider: Lurdes Momin CNM Performing Location: [facility] Administered by: Pao Taveras on 05/07/23 09:06 Dose Route Admin Location Dispensed Lot Number Expiration Date NDC Interface Designer 150 mg IM left deltoid 1 mL [id number] 11/19/24 79705-590-97 [employer] Results AMB Test Urine AMB Test Urine Negative Last Edit by Bita Napier CMA on 08:11 Results Reviewed Results Reviewed: Laboratory Last Values Tst Clinic Negative 05/07/23 08:11 Assessment & Plan Assessment & Plan (1) Initiation of Depo Provera: Code(s): Z30.013 - Encounter for initial prescription of injectable contraceptive Plan: Depo Provera Use: Counseled regarding: risk/benefits, alternative options. Use-frequency, side effects including weight gain, acne, hair loss, mood changes, unpredictable bleeding, or no bleeding, bone loss which is often improved when stopping Depo Provera, but not always completely reversible. Warnings: Severe headache, loss of vision, chest pain, difficulty breathing, severe stomach pain, pain or swelling in an extremity. Go to the nearest ED if experiencing any of these symptoms. If any new breast lumps or concerns notify the office. Start Depo in the first 5 days of the menstrual cycle or if no UPI for 2 weeks and a negative test, then always use a BUM for an additional 7 days. Rx to be sent to the pharmacy, then return to the office for a nurse visit for the Depo Provera, then every 12 weeks. Maintain a healthy lifestyle with a well balance diet including calcium and Vit D, along with regular weight bearing exercises to support good bone health. All of her questions and concerns were addressed to the best of my ability and shared decision making. She is agreeable to the plan of care. This note is constructed using voice recognition software. While every effort has been made to ensure accuracy, health care attorney errors may have been included. Orders: Orders AMB HCG Urine Test Today Z32.02 - Encounter for test, result negative AMB Medroxyprogesterone Injection Patient Supplied Today Z30.013 - Encounter for initial prescription of injectable contraceptive Medications: New medroxyprogesterone (Depo-Provera) 150 mg IM [id number] 1 mL 3RF 90 days Coding Level of Care Code Est Pt Level 3 (80587) Diagnoses Initiation of Depo Provera Z30.013
[2023-05-07 08:03] VITALS: BMI 39.5
== END 2023-05-07 08:46 | disposition home or self-care (01) ==
PROVIDERS: PCP Hospitalist; Visit Provider Advanced Practice Midwife
DX: Z30.013 Encounter for initial prescription of injectable contraceptive (principal); Z32.02 Encounter for pregnancy test, result negative
CPT/HCPCS: 99213

== ENCOUNTER → 2023-05-07 08:00 | Outpatient (BNVA) | payer OTHER, SELFPAY | PROVIDERS: PCP Hospitalist; Visit Provider Advanced Practice Midwife | DX: Z30.013 Encounter for initial prescription of injectable contraceptive (principal) | CPT/HCPCS: 81025; 96372; 99212; J1050 ==

== ENCOUNTER 2023-05-12 10:02 | Outpatient (REF) | payer OTHER, SELFPAY ==
--- NOTE | ~2023-05-12 | FL_ITS ---
EXAMINATION: XR FLUOROSCOPY UPPER GI WITH AIR CLINICAL INFORMATION: Morbid obesity. Preop evaluation prior to bariatric surgery. COMPARISON: None TECHNIQUE: Fluoroscopic air contrast upper GI examination was performed utilizing standard techniques with thin and thick barium and effervescent granules. Numerous spot images were obtained. FINDINGS: Lateral cine images of the oropharynx and hypopharynx demonstrate normal swallow mechanism with normal epiglottic inversion and soft palate elevation. No tracheal penetration, glottic or subglottic aspiration identified. No nasopharyngeal reflux present. Hypopharyngeal structures appear normal without evidence of mass or diverticulum. There was no significant cricopharyngeal achalasia. Dual and single contrast images of the esophagus demonstrate normal caliber, contour, and mucosal pattern. No evidence of stricture, mass, or ulcerations identified. Esophageal peristalsis was normal. No evidence of hiatus hernia identified. Gastroesophageal reflux is seen up to the thoracic inlet. Dual contrast and single contrast images of the stomach demonstrated normal contour and mucosal pattern without evidence of mass, ulceration, or other abnormality. Contrast freely passed into the gastric antrum and duodenal bulb without delay. Single and air-contrast images of the duodenal bulb demonstrate no abnormality. The duodenal sweep has a normal appearance, course, and mucosal fold appearance. No malrotation. The imaged proximal jejunum has a normal fold pattern and caliber. FLUOROSCOPY TIME: 2 minutes 42 seconds Number of Spot Images: 10 Number of Cine: 10 DOSE AREA PRODUCT: 2345 uGy-m2 (microgray-meter squared) FL/FL upper GI w air IMPRESSION: 1. Significant gastroesophageal reflux. 2. Otherwise normal examination. This procedure was performed by Jp Chairez PA-C, and supervised by Dr. Mccray
== END 2023-05-12 10:03 | disposition home or self-care (01) ==
LOC: HO.XRAY 10:02
PROVIDERS: Visit Provider Surgery
DX: E66.01 Morbid (severe) obesity due to excess calories (principal)
CPT/HCPCS: 74246

== ENCOUNTER → 2023-05-12 10:03 | Outpatient (BNV) | payer OTHER, SELFPAY | PROVIDERS: Visit Provider Physician Assistant Surgical | DX: E66.01 Morbid (severe) obesity due to excess calories (principal); Z01.818 Encounter for other preprocedural examination | CPT/HCPCS: 74246 ==

== ENCOUNTER 2023-05-14 08:07 | Outpatient (AMB) | payer OTHER, SELFPAY ==
--- NOTE | 2023-05-14 17:30 | MHC.OFFVISWM ---
Intake VS Expanded 05/14/23 17:39 Height 5 ft 10 in Weight 272 lb BMI 39.0 Body Fat % 48.9 Body Fat Mass 133 Fat Free Mass 139 Visceral Fat Rating 20 Body Water % 35 Body Water Mass 95.2 Basal Metabolic Rate/Score 1,748 Intake Visit Reasons: TV Follow Up SWL Allergies No Known Allergies [No Known Allergies*] Allergy (Verified 05/07/23 08:10) HPI TV Follow Up SWL HPI Details Start time: 5.24pm, End time: 5.44pm ?I spent 15 minutes speaking with the patient on the phone plus an additional 5 minutes reviewing and updating records for a total of 20 minutes HPI Comments History of Present Illness Details Overall weight loss: 7.8lbs, or 2.79% TBWL Is doing 2 Celebrate Rebuild protein shakes (1 scoop each in 8oz almond milk), two Celebrate protein bars, one meal (10 forks of protein and 10 forks of salad or vegetables) Exercise: is doing treadmill x 4/week (speed: 3.0, incline 2-8) for 500-1000 calories per work-out [facility] Medical History (Updated 05/07/23 @ 08:25 by Lurdes Momin CNM) Initiation of Depo Provera Morbid obesity BMI 38.0-38.9,adult Abdominal pain Juvenile arthritis Surgical History No pertinent past surgical history Family History Father Unknown family medical history Mother No problems noted. 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 Continue same nutritional plan of 2 Celebrate Rebuild protein shakes (1 scoop each in 8oz almond milk), two Celebrate protein bars, one meal (10 forks of protein and 10 forks of salad or vegetables) 2. Exercise: continue treadmill x 4/week (speed: 3.0, incline 2-8) for 500-1000 calories per work-out 3. Continue to send me weight measurements weekly on Mondays Telehealth Telehealth Location of provider rendering services: practice address Location of patient: address on file Patient Identification confirmed using: Name, : Yes Telehealth method: voice only Patient verbally consented to treatment: Yes Patient verbally consented to billing insurance company: Yes Patient informed of any privacy concerns related to visit: Yes Minutes spent on Phone/Video with Pt.: 20 Coding Level of Care Code Tele Est Pt Level 3 (43212) Diagnoses Class 2 severe obesity due to excess calories with serious comorbidity and body mass index (BMI) of 38.0 to 38.9 in adult E66.01; Z68.38 Obesity type: due to excess calories Obesity classification: adult class 2 (BMI 35 - 39.9) Serious obesity comorbidity presence: with serious comorbidity Body mass index: BMI 38.0-38.9 Time Spent (min) 20
[2023-05-14 17:39] VITALS: BMI 39.0
== END 2023-05-14 17:46 | disposition home or self-care (01) ==
LOC: HO.HBS 08:07
PROVIDERS: PCP Hospitalist; Visit Provider Surgery
DX: E66.01 Morbid (severe) obesity due to excess calories (principal); Z68.38 Body mass index [BMI] 38.0-38.9, adult
CPT/HCPCS: 99213

== ENCOUNTER 2023-05-24 14:15 | Outpatient (AMB) | payer OTHER, SELFPAY ==
--- NOTE | 2023-05-24 14:03 | MHC.AMNUTRGE ---
Intake Intake Visit Reasons: (TV) F/U SWL Prospecting Driller Required: No Allergies No Known Allergies [No Known Allergies*] Allergy (Verified 05/07/23 08:10) HPI Nutrition Presentation Reason for consult elevated BMI Diet Assmnt Details pt states she is following her plan from Dr. Gamino and is content with it, no concerns. states she was told she would be cleared today and would then be submitted for surgery. dinner has chicken in the air fryer, or oven baked, or grilled with a vegetable (salad, broccoli, or carrots) cooks for herself and 1 year old daughter Lives with margaret who is joining our program Exercise: treadmill 60 minutes, daily SWL classes: completed Dietary counseling reduction Diagnosis Nutrition problem #1 overweight/obesity As related to (etiology) #1 excess energy intake and physical inactivity As evidenced by (sign/symptom) #1 high BMI Monitoring/Goals Nutrition problem monitoring total energy intake, level of knowledge/skill, total PRO intake, total CHO intake and weight Outcome progress progressing Learning/Education Readiness to learn fair Stages of change action Educational materials provided Yes Most Recent Diabetes Results: No Data to Display [facility] Medical History (Updated 05/07/23 @ 08:25 by Lurdes Momin CNM) Initiation of Depo Provera Morbid obesity BMI 38.0-38.9,adult Abdominal pain Juvenile arthritis Surgical History No pertinent past surgical history Family History Father Unknown family medical history Mother No problems noted. 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 Educational requirements have been completed. Reviewed commitment to protein shake for several months post surgery. Encouraged communication with office as needed Telehealth Telehealth Location of provider rendering services: practice address Location of patient: address on file Patient Identification confirmed using: Name, : Yes Telehealth method: voice only Patient verbally consented to treatment: Yes Patient verbally consented to billing insurance company: Yes Patient informed of any privacy concerns related to visit: Yes Minutes spent on Phone/Video with Pt.: 12 Coding Level of Care Code Nutr Indiv Subseq (21883) Diagnoses Morbid obesity E66.01 Time Spent (min) 12
== END 2023-05-24 14:56 | disposition home or self-care (01) ==
LOC: HO.HBS 14:16
PROVIDERS: PCP Hospitalist; Visit Provider Dietitian, Registered
DX: E66.01 Morbid (severe) obesity due to excess calories (principal)

== ENCOUNTER → 2023-05-24 14:15 | Outpatient (BNVA) | payer OTHER, SELFPAY | PROVIDERS: PCP Hospitalist; Visit Provider Dietitian, Registered | DX: E66.01 Morbid (severe) obesity due to excess calories (principal) | CPT/HCPCS: 97803 ==

== ENCOUNTER → 2023-06-09 10:49 | Outpatient (REF) | payer OTHER, SELFPAY ==
--- NOTE | 2023-06-09 10:51 | CA_ITS ---
Transthoracic Echocardiogram Patient (Last, First, Middle): Meghan Tobias, Gender: Female Date of : 1995 Age: 27 Procedure Date: 06/09/2023 Procedure Type: Transthoracic Echocardiogram Location: OP Height: 180.34 cm Weight: 120.2 kg BSA: 2.38 m2 Heart Rate: bpm BP: 116 / 64 mmHg Floral Department Specialist: PUSHPA Referring MD: Maxime Gamino MD Symptoms: I51.7 - Cardiomegaly Study Quality: Adequate with contrast ECG Rhythm: Sinus Conclusions: - The left ventricular systolic function is low normal. The calculated ejection fraction is 54% by biplane method. - No obvious valvular pathology seen on this study. Findings Left Ventricle Normal left ventricular cavity size. There is normal left ventricular wall thickness. The left ventricular systolic function is low normal. The calculated ejection fraction is 54% by biplane method. There is no evidence of regional wall motion abnormalities. Diastolic function is normal for age. Right Ventricle Mildly increased right ventricular cavity size. There is normal right ventricular systolic function. Atria Both atria are normal in size. Aortic Valve There is a normal trileaflet aortic valve. There is no aortic valve stenosis. There is no aortic valve regurgitation. Mitral Valve The mitral valve appears normal. There is trace mitral valve regurgitation. There is no mitral valve stenosis. Pulmonic Valve There is mild pulmonic valve regurgitation. Tricuspid Valve Normal tricuspid valve structure. There is mild tricuspid valve regurgitation. There is no evidence of pulmonary hypertension. Great Vessels The asc aorta is normal in size. Venous The inferior vena cava is normal in size and collapses greater than 50% with inspiration. Pericardium/Pleural There is no evidence of pericardial effusion. Prior Study Comparison No prior study available for comparison. Recommendations, Care & Conclusions No obvious valvular pathology seen on this study. Measurements 2D Linear Measurements IVSd: 0.85 0.6-0.9/0.6-1.0 cm LVIDd: 4.58 3.9-5.3/4.2-5.9 cm LVIDd Index: 1.92 2.4-3.2/2.2-3.1 cm/m2 LVIDs: 3.01 2.0-3.6 cm LVPWd: 0.93 0.7-1.1 cm LA Diam: 3.20 2.7-3.8/3.0-4.0 cm LAIDs Index: 1.34 1.5-2.3 cm/m2 LV Mass: 167.51 67-162/88-224 g LV Mass Index: 70.38 43-95/49-115 g/m2 LVOT Diam: 2.00 3.0+(-)1.3 cm 2D Systolic Function EF 4C: 57.20 >55% EF 2C: 53.70 >55% EF BiP: 54.10 >55% Mitral Valve MV Pk E: 1.02 MV PK A: 0.61 MV Decel Time: 213.00 E/A: 1.70 E'Lateral: 11.50 E'Medial: 9.68 E/E' Med: 10.50 E/E' Lat: 8.90 PHT: 62.00 MVA PHT: 3.55 Decel [place]: 4.79 Aortic Valve AoV Pk Gerson: 1.38 AoV Mn Gerson: 0.92 AoV VTI: 0.28 AoV Pk Grad: 8.00 Aov Mn Grad: 4.00 DUSTY Cont.VTI: 2.62 LVOT LVOT Pk Gerson: 1.08 LVOT Mn Gerson: 0.74 LVOT VTI: 0.24 LVOT Pk Grad: 5.00 LVOT Mn Grad: 3.00 LVOT Diam: 2.00 LVOT Area: 3.14 Diastolic Function MV Pk E: 1.02 MV Pk A: 0.61 E/A: 1.70 E'Medial: 9.68 E/E' Med: 10.50 E' Laterial: 11.50 E/E' Lat: 8.90 Right Ventricle TAPSE (mm): 26.20 TVS' Gerson: 13.80 Tricuspid Valve TR Pk Gerson: 2.46 TR Pk Grad: 24.00 RA Press: 3.00 RVSP: 27.00 Great Vessels Aorta Sinus of Valsalva: 2.66 2.0-3.5 cm Ao Asc: 2.50 2.1-3.4 cm Updated in Other Vendor System with Status of Final Cristofer Morrow MD electronically signed on 06/11/2023 10:53:19 AM with status of Final
== END ==
LOC: HO.CARD 10:49
PROVIDERS: PCP Hospitalist; Visit Provider Surgery
DX: I51.7 Cardiomegaly (principal)
CPT/HCPCS: 93306; Q9957

== ENCOUNTER → 2023-06-09 10:51 | Outpatient (BNV) | payer OTHER, SELFPAY | PROVIDERS: PCP Hospitalist; Visit Provider Internal Medicine | DX: I51.7 Cardiomegaly (principal) | CPT/HCPCS: 93306 ==

== ENCOUNTER 2023-06-23 08:25 | Outpatient (AMB) | payer OTHER, SELFPAY ==
--- NOTE | 2023-06-23 14:01 | MHC.OFFVISWM ---
Intake VS Expanded 06/23/23 14:15 Height 5 ft 10 in Weight 268 lb 2 oz BMI 38.5 Body Fat % 48.1 Body Fat Mass 129 Fat Free Mass 139.2 Visceral Fat Rating 19 Body Water % 35.6 Body Water Mass 95.4 Basal Metabolic Rate/Score 1,726 Intake Visit Reasons: TV Follow Up SWL Allergies No Known Allergies [No Known Allergies*] Allergy (Verified 05/07/23 08:10) HPI TV Follow Up SWL HPI Details Start time: 1.55pm, End time: 2.25pm ?I spent 15 minutes speaking with the patient on the phone plus an additional 5 minutes reviewing and updating records for a total of 20 minutes HPI Comments History of Present Illness Details Overall weight loss: 11.6lbs, or 4.15% TBWL Is doing 3 Celebrate Rebuild (2 scoops each in almond milk), 2 Celebrate protein bars and a meal (10 forks of protein and 10 forks of salad or vegetables) Exercise: walking with her daughter [facility] Medical History (Updated 05/07/23 @ 08:25 by Lurdes Momin CNM) Initiation of Depo Provera Morbid obesity BMI 38.0-38.9,adult Abdominal pain Juvenile arthritis Surgical History No pertinent past surgical history Family History Father Unknown family medical history Mother No problems noted. 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 Please change nutritional plan to one Celebrate Rebuild protein shake with HALF scoop in 8oz almond milk, TWO Celebrate Rebuild protein shakes (ONE scoop EACH each in almond milk), 2 Celebrate protein bars and a meal (10 forks of protein and 10 forks of salad or vegetables) 2. Walk outside but track the calories you burn. Goal is to burn 2000 calories per week 3. Send me weight measurements tomorrow and weekly on Telehealth Telehealth Location of provider rendering services: practice address Location of patient: address on file Patient Identification confirmed using: Name, : Yes Telehealth method: voice only Patient verbally consented to treatment: Yes Patient verbally consented to billing insurance company: Yes Patient informed of any privacy concerns related to visit: Yes Minutes spent on Phone/Video with Pt.: 20 Coding Level of Care Code Tele Est Pt Level 3 (64383) Diagnoses Class 2 severe obesity due to excess calories with serious comorbidity and body mass index (BMI) of 38.0 to 38.9 in adult E66.01; Z68.38 Obesity type: due to excess calories Obesity classification: adult class 2 (BMI 35 - 39.9) Serious obesity comorbidity presence: with serious comorbidity Body mass index: BMI 38.0-38.9 Time Spent (min) 20
[2023-06-23 14:15] VITALS: BMI 38.5
== END 2023-06-23 14:27 | disposition home or self-care (01) ==
LOC: HO.HBS 08:25
PROVIDERS: PCP Hospitalist; Visit Provider Surgery
DX: E66.01 Morbid (severe) obesity due to excess calories (principal); Z68.38 Body mass index [BMI] 38.0-38.9, adult
CPT/HCPCS: 99213

== ENCOUNTER → 2023-06-23 08:25 | Outpatient (BNVA) | payer OTHER, SELFPAY | PROVIDERS: PCP Hospitalist; Visit Provider Surgery ==

== ENCOUNTER 2023-07-30 08:59 | Outpatient (AMB) | payer OTHER, SELFPAY ==
[2023-07-30 09:15] VITALS: BMI 40.2
--- NOTE | 2023-07-30 09:15 | AM.OFFVISNUR ---
Intake Vital Signs 07/30/23 09:15 Height 5 ft 10 in Weight 280 lb BMI 40.2 Intake Visit Reasons: DEPO Piler Required: No Allergies No Known Allergies [No Known Allergies*] Allergy (Verified 05/07/23 08:10) Is last menstrual period known: Yes Post menopausal: No Patient : No Do you need a note to return to daycare/school/sports/work: No Nursing Note Toi is here for scheduled Depo provera injection. No c/o. She had her menses x1 since initiation of Depo 05/07/23 on 07/05/23 x4 days. Denies break through bleeding. Pt tolerated injection well. Pt will schedule her next injection in 12 weeks and will call the office if she has any questions or concerns. Pt verbalizes understanding and agrees with plan. No further questions. Office Procedures Depo Questionnaire If YES to any of the following questions, please consult a provider. Date of last injection: 05/07/23 Date of last menstrual period: 07/05/23 Date of last gynecology exam: 12/17/22 Menstrual pattern since last injection has been: Normal Irregular bleeding?: No Breast lumps or other breast changes?: No Changes in weight or appetite?: No Depression or changes in mood?: No Abnormal hair growth or loss?: No Skin problems (rash, acne, discoloration)?: No Pain at the injection site?: No Headaches?: No Nervousness?: No Abdominal pain or cramping?: No Dizziness or nausea?: No Fatigue or weakness?: No Decrease in sexual drive?: No Chest pain or shortness of breath?: No Swelling in arms or legs?: No Form completed by?: Pao Taveras RN Office Meds Depo-Provera 150 mg/mL intramuscular syringe Performing Provider: Lurdes Momin CNM Performing Location: [facility] [place] [facility] Administered by: Pao Taveras on 07/30/23 09:20 Dose Route Admin Location Dispensed Lot Number Expiration Date [facility] [place] Production Floater 150 mg IM left deltoid 1 mL [id number] 11/19/24 71402-017-67 [employer] Coding Level of Care Code Established Pt Est Pt Level 1 (06598) Patient Type Established History Problem Focused Medical Decision Making Straight Forward Time Spent (min) 12 Assessment & Plan Assessment & Plan Orders: Orders AMB Medroxyprogesterone Injection Patient Supplied Today Z30.42 - Encounter for surveillance of injectable contraceptive Medications: New Depo-Provera (medroxyprogesterone) 150 mg IM ONCE 1 mL 0RF NS Z30.42 - Encounter for surveillance of injectable contraceptive
== END 2023-07-30 09:12 | disposition home or self-care (01) ==
LOC: HO.HWS 08:59
PROVIDERS: PCP Hospitalist; Visit Provider Advanced Practice Midwife
DX: Z30.42 Encounter for surveillance of injectable contraceptive (principal)

== ENCOUNTER → 2023-07-30 08:59 | Outpatient (BNVA) | payer OTHER, SELFPAY | PROVIDERS: PCP Hospitalist; Visit Provider Advanced Practice Midwife | DX: Z30.42 Encounter for surveillance of injectable contraceptive (principal) | CPT/HCPCS: 96372; 99211; J1050 ==

== ENCOUNTER 2023-08-10 11:39 | Outpatient (REF) | payer OTHER, SELFPAY ==
[2023-08-10 11:58] LABS: MANUAL DIFF FLAG NO
[2023-08-10 12:31] LABS: Basophils Percent Auto 0.3 % (0-2); Eosinophils Absolute Auto 0.2 X10*3/uL (0.0-0.4); Eosinophils Percent Auto 2.6 % (0-4); Hematocrit 40.6 % (37.0-47.0); Hemoglobin 12.2 g/dl (12.0-16.0); Imm Gran Abs Auto 0.02 X10*3/uL (0.00-0.03); Imm Gran Pct Auto 0.3 % (0.0-0.4); Lymphocytes Absolute Auto 3.5 X10*3/uL (1.2-4.9); Lymphocytes Percent Auto 45.8 % (20-40); Mean Corpuscular Hemoglobin 22.1 pg (27.0-33.0); Mean Corpuscular Volume 73.4 fL (80.0-98.0); Monocytes Absolute Auto 0.4 X10*3/uL (0.1-1.2); Monocytes Percent Auto 5.2 % (2-11); Neutrophils Absolute Auto 3.5 x10*3/uL (2.0-8.3); Neutrophils Percent Auto 45.8 % (45-73); Platelet Count 275 X10*3/uL (160-400); Red Blood Count 5.53 X10*6/uL (4.20-5.50); Red Cell Distribution Width 17.3 % (11.0-16.0); White Blood Count 7.7 X10*3/uL (4.8-10.8)
[2023-08-10 13:01] LABS: Iron 28 mcg/dL (30-160); Percent Iron Saturation 7 % (15-50); Total Iron Binding Capacity 377 mcg/dL (228-428); Unsaturated Iron Binding 349 ug/dL
== END 2023-08-10 11:40 | disposition home or self-care (01) ==
LOC: HO.LAB 11:39
PROVIDERS: Visit Provider Surgery
DX: D64.9 Anemia, unspecified (principal)
CPT/HCPCS: 36415; 83540; 85025

== ENCOUNTER 2023-08-18 11:53 | Outpatient (AMB) | payer OTHER, SELFPAY ==
[2023-08-18 12:55] VITALS: BP 120/70; PULSE 86; TEMP 36.1; O2SAT 97; BMI 39.3
--- NOTE | 2023-08-18 12:55 | AM.OFFWIN_ITS ---
Intake Vital Signs 08/18/23 12:55 Height 5 ft 10 in Weight 274 lb BMI 39.3 BP 120/70 Blood Pressure Location Lt brachial Position Sitting Pulse 86 Pulse Source Pulse Oximeter Temp 97.0 F Temp Source Temporal Artery Scan Pulse Oximetry (%) 97 Oxygen Delivery Method Room Air Intake Visit Reasons: EST/ sore throat(lobby) Intake Note: pt is here today for sore throat started yesterday Patient Tobacco Use Status: Never used Tobacco Allergies No Known Allergies [No Known Allergies*] Allergy (Verified 08/18/23 13:05) Do you need a note to return to daycare/school/sports/work: Yes HPI HPI Comments History of Present Illness Details 27 y/o female patient who presents to [facility] in clinic with c/o Sore- throat,hard to swallow, body aches and fevers since yesterday. [facility] Medical History (Updated 05/07/23 @ 08:25 by Lurdes Momin CNM) Initiation of Depo Provera Morbid obesity BMI 38.0-38.9,adult Abdominal pain Juvenile arthritis Surgical History No pertinent past surgical history Family History Father Unknown family medical history Mother No problems noted. 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 Sexual orientation: Straight/Heterosexual Female Reproductive History Menstrual Age of Menarche: 15 Review of Systems Const All systems reviewed & are unremarkable except as noted in HPI and below Physical Exam Vital Signs: Last Vital Signs Temp 97.0 F 08/18/23 12:55 Pulse 86 08/18/23 12:55 BP 120/70 08/18/23 12:55 Pulse Ox 97 08/18/23 12:55 Oxygen Delivery Method Room Air 08/18/23 12:55 BMI result Body Mass Index 39.3 Const General: comfortable and no acute distress Nutritional Appearance: obese Orientation/consciousness: patient oriented x3 HEENT Head: Yes normocephalic Ears: external ears normal and TM's normal bilaterally General nose exam: Normal nasal mucous membranes and turbinates present Face and sinus: Yes sinuses nontender Mouth: moist mucous membranes and Abnormal oral and palatal mucosa present erythematous Throat: Yes uvula midline and Yes abnormal tonsil (enlarged tonsils +2) Resp Effort & Inspection: normal respiratory effort and able to speak in complete sentences Auscultation: clear to auscultation bilaterally, no crackles, no rales, no rhonchi and no wheezes Cardio Rate: regular rate Rhythm: regular rhythm Neuro General: patient oriented x3, gait normal and moves all extremities Psych Speech and movement: Normal speech and movement present Assessment & Plan Assessment & Plan (1) Acute bacterial pharyngitis: Code(s): J02.8 - Acute pharyngitis due to other specified organisms; B96.89 - Other specified bacterial agents as the cause of diseases classified elsewhere Plan: - OTC sore/throat remedies -Rest and hydrate well with warm fluids - Acetaminophen for pain/fever relief. - Take medicines as directed. Medications: New penicillin V potassium 500 mg PO TID 10 days 30 tabs 0RF B96.89 - Other specified bacterial agents as the cause of diseases classified elsewhere, J02.8 - Acute pharyngitis due to other specified organisms prednisone 50 mg PO DAILY 5 days 5 tabs 0RF B96.89 - Other specified bacterial agents as the cause of diseases classified elsewhere, J02.8 - Acute pharyngitis due to other specified organisms Coding Level of Care Code Est Pt Level 3 (76954) Diagnoses Acute bacterial pharyngitis J02.8; B96.89 Time Spent (min) 15
== END 2023-08-18 13:22 | disposition home or self-care (01) ==
PROVIDERS: PCP Hospitalist; Visit Provider Nurse Practitioner Family
DX: J02.9 Acute pharyngitis, unspecified (principal)
CPT/HCPCS: 87880; 99213

== ENCOUNTER 2023-10-21 15:09 | Outpatient (AMB) | payer OTHER, SELFPAY ==
[2023-10-21 15:31] VITALS: BMI 39.9
--- NOTE | 2023-10-21 15:31 | AM.OFFVISNUR ---
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 No c/o. Pt tolerated injection well. Pt advised to schedule next appointment in 12 weeks for next injection. Pt verbalizes understanding and agrees with plan. No further questions. Office Procedures Depo Questionnaire If YES to any of the following questions, please consult a provider. Date of last injection: 07/30/23 Date of last gynecology exam: 12/17/22 Menstrual pattern since last injection has been: Not Applicable Irregular bleeding?: No Breast lumps or other breast changes?: No Changes in weight or appetite?: No Depression or changes in mood?: No Abnormal hair growth or loss?: No Skin problems (rash, acne, discoloration)?: No Pain at the injection site?: No Headaches?: No Nervousness?: No Abdominal pain or cramping?: No Dizziness or nausea?: No Fatigue or weakness?: No Decrease in sexual drive?: No Chest pain or shortness of breath?: No Swelling in arms or legs?: No Form completed by?: Pao Taveras RN Office Meds Depo-Provera 150 mg/mL intramuscular syringe Performing Provider: Lurdes Momin CNM Performing Location: [facility] [place] [facility] Administered by: Pao Taveras on 10/21/23 15:34 Dose Route Admin Location Dispensed Lot Number Expiration Date [facility] Print Press Operator 150 mg IM left deltoid 1 mL [id number] 03/21/25 56754-230-97 [place] Assessment & Plan Assessment & Plan Orders: Orders AMB Medroxyprogesterone Injection Patient Supplied Today Z30.42 - Encounter for surveillance of injectable contraceptive Medications: New Depo-Provera (medroxyprogesterone) 150 mg IM ONCE 1 mL 0RF NS Z30.42 - Encounter for surveillance of injectable contraceptive
== END 2023-10-21 15:25 | disposition home or self-care (01) ==
LOC: HO.HWS 15:09
PROVIDERS: PCP Hospitalist; Visit Provider Advanced Practice Midwife
DX: Z30.42 Encounter for surveillance of injectable contraceptive (principal)

== ENCOUNTER → 2023-10-21 15:09 | Outpatient (BNVA) | payer OTHER, SELFPAY | PROVIDERS: PCP Hospitalist; Visit Provider Advanced Practice Midwife | DX: Z30.42 Encounter for surveillance of injectable contraceptive (principal) | CPT/HCPCS: 96372; 99211; J1050 ==

== ENCOUNTER 2024-01-17 09:58 | Outpatient (AMB) | payer OTHER, SELFPAY ==
[2024-01-17 10:29] VITALS: BMI 40.1
--- NOTE | 2024-01-17 10:29 | AM.OFFVISNUR ---
Vital Signs 01/17/24 10:29 Height 5 ft 10 in Weight 279 lb 6 oz BMI 40.1 Intake Visit Reasons: DEPO Cloth Seconds Sorter Required: No Allergies No Known Allergies [No Known Allergies*] Allergy (Verified 08/18/23 13:05) Is last menstrual period known: Yes Post menopausal: No Patient : No Nursing Note Meghan is here for scheduled Depo provera injection. Pt continues to have BAGLEY 2-3 times a week. She was assigned a PCP in [place] but reports it is too far away and is trying to get PCP in [place] where she lives. Pt tolerated injection well. She was advised to schedule next injection in 12 weeks. In addition, she needs to schedule an AG before her next Depo injection. She was NS for her last appt for AG 12/21/23. Next AG scheduled 04/04/24 and next Depo injection 04/18/24. No further questions. Office Procedures Depo Questionnaire If YES to any of the following questions, please consult a provider. Date of last injection: 10/21/23 Date of last menstrual period: 12/24/23 Date of last gynecology exam: 12/17/22 Menstrual pattern since last injection has been: Normal Irregular bleeding?: No Breast lumps or other breast changes?: No Changes in weight or appetite?: No Depression or changes in mood?: No Abnormal hair growth or loss?: No Skin problems (rash, acne, discoloration)?: No Pain at the injection site?: No Headaches?: Yes Nervousness?: No Abdominal pain or cramping?: No Dizziness or nausea?: No Fatigue or weakness?: No Decrease in sexual drive?: No Chest pain or shortness of breath?: No Swelling in arms or legs?: No Form completed by?: Pao Taveras pesticide use medical coordinator Meds Depo-Provera 150 mg/mL intramuscular syringe Performing Provider: Lurdes Momin CNM Performing Location: [facility] [place] [facility] Administered by: Pao Taveras on 01/17/24 10:40 Dose Route Admin Location Dispensed Lot Number Expiration Date [facility] Branch Officer 150 mg IM left deltoid 1 mL [id number] 08/19/25 66953-447-81 AF83 Assessment & Plan Assessment & Plan (1) Encounter for management and injection of depo-Provera: Code(s): Z30.42 - Encounter for surveillance of injectable contraceptive Category: Medical Plan: Schedule next Depo injection in 12 weeks as well as next AG Orders: Orders AMB Medroxyprogesterone Injection Patient Supplied Today Z30.42 - Encounter for surveillance of injectable contraceptive
== END 2024-01-17 10:26 | disposition home or self-care (01) ==
PROVIDERS: PCP Hospitalist; Visit Provider Advanced Practice Midwife
DX: Z30.42 Encounter for surveillance of injectable contraceptive (principal)

== ENCOUNTER → 2024-01-17 09:58 | Outpatient (BNVA) | payer OTHER, SELFPAY | PROVIDERS: PCP Hospitalist; Visit Provider Advanced Practice Midwife | DX: Z30.42 Encounter for surveillance of injectable contraceptive (principal) | CPT/HCPCS: 96372; 99211; J1050 ==

== ENCOUNTER 2024-03-13 12:51 | Outpatient (AMB) | payer OTHER, SELFPAY ==
--- NOTE | 2024-03-13 13:00 | AM.OFFWIN_ITS ---
Intake Vital Signs 03/13/24 13:07 Height 5 ft 10 in Weight 279 lb 2 oz BMI 40.0 BP 130/77 Blood Pressure Location Rt radial Position Sitting Respiration 16 Pulse 75 Pulse Source Pulse Oximeter Temp 99.0 F Temp Source Oral Pulse Oximetry (%) 100 Oxygen Delivery Method Room Air Intake Visit Reasons: HEADACHES Intake Note: patient here c/o headaches for 2 months and its been consistent, she states she wakes up with it. Patient Tobacco Use Status: Never used Tobacco Doctor Of Podiatry Required: No Is last menstrual period known: Yes Last menstrual period: 02/15/24 Post menopausal: No Patient : No Allergies No Known Allergies [No Known Allergies*] Allergy (Verified 03/13/24 13:06) Do you need a note to return to daycare/school/sports/work: No HPI HPI Comments History of Present Illness Details 28-year-old female presents with persist ent left frontal headaches for the past 2 months. The pain starts in the morning and completely resolves the early afternoon. Tylenol sometimes provides relief. The headaches average 5/10 on the pain scale. No visual changes or associated symptoms. Last eye exam was a month ago and she received a new prescription glasses; her headaches has improved since she got the new prescription. She wears prescription for close and distance vision. She has been wearing prescription glasses since childhood. She is on Depo-Provera 150 mg IM every 3 months. [facility] Medical History (Updated 03/13/24 @ 13:35 by Qian Briggs CNP) Encounter for management and injection of depo-Provera Initiation of Depo Provera Morbid obesity BMI 38.0-38.9,adult Abdominal pain Juvenile arthritis Surgical History No pertinent past surgical history Family History Father Unknown family medical history Mother No problems noted. 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 Sexual orientation: Straight/Heterosexual Female Reproductive History Menstrual Age of Menarche: 15 Date of last menstrual period: 02/15/24 Review of Systems Const Details: Denies chills, Denies fatigue, Denies fever(s), Denies headache(s) and Denies weakness Cardiac Denies chest pain, Denies claudication, Denies leg edema, Denies lightheadedness, Denies palpitations, Denies dyspnea, Denies dyspnea on exertion, Denies orthopnea and Denies other (Loss of consciousness) Resp Denies cough, Denies excessive phlegm production, Denies dyspnea, Denies dyspnea on exertion, Denies snoring and Denies wheezing ENT Reports as per HPI Physical Exam Const Other: General: comfortable and no acute distress Orientation/consciousness: patient oriented x3 Chest Chest palpation & inspection: normal inspection of the chest Resp Auscultation: clear to auscultation bilaterally Cardiac Palpation: normal PMI Heart sounds: S1 normal heart sound present, S2 normal heart sound present, no gallops, no murmur, no rubs ENT Head is normocephalic Bilateral ear canal and TM are normal Nasal turbinates and oropharynx are pink and moist Sinuses are nontender with palpation No auricular or cervical lymphadenopathy Neuro No focal neuro deficit Assessment & Plan Assessment & Plan (1) Headache: Code(s): R51.9 - Headache, unspecified Qualifiers: Headache type: unspecified Headache chronicity pattern: chronic headache Intractability: not intractable Qualified Code(s): R51.9 - Headache, unspecified; G89.29 - Other chronic pain Plan: - Continue current analgesic regimen with Tylenol as needed and consider ibuprofen for additional relief of headaches. - Monitor headache symptoms in relation to the recent change in eyeglasses prescription and further assess the need for adjustment if symptoms persist. 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 - Advised to get lab work done and follow-up to later this month as planned to [facility] care. - Return sooner with symptoms or concerns. Verbalized understanding and agreed with the plan. Patient was informed and verbally consented to the use of an ambient scribe for clinic note documentation during this visit. (2) Laboratory tests ordered as part of a complete physical exam (CPE): Code(s): Z00.00 - Encounter for general adult medical examination without abnormal findings Plan: Fasting labs ordered as part of a complete physical exam. Advised to fast for at least 10 hours before getting labs drawn. May drink water Verbalized understanding and agreed with treatment plan. Coding Level of Care Code New Pt Level 3 (34045) Diagnoses Chronic nonintractable headache, unspecified headache type R51.9; G89.29 Headache type: unspecified Headache chronicity pattern: chronic headache Intractability: not intractable Laboratory tests ordered as part of a complete physical exam (CPE) Z00.00
[2024-03-13 13:07] VITALS: BP 130/77; PULSE 75; RESP 16; TEMP 37.2; O2SAT 100; BMI 40.0
== END 2024-03-13 13:32 | disposition home or self-care (01) ==
PROVIDERS: PCP Nurse Practitioner Family; Visit Provider Nurse Practitioner Family
DX: R51.9 Headache, unspecified (principal); G89.29 Other chronic pain; Z00.00 Encounter for general adult medical examination without abnormal findings

== ENCOUNTER → 2024-03-13 12:51 | Outpatient (BNVA) | payer OTHER, SELFPAY | PROVIDERS: PCP Nurse Practitioner Family; Visit Provider Nurse Practitioner Family | DX: R51.9 Headache, unspecified (principal); G89.29 Other chronic pain | CPT/HCPCS: 99202 ==

== ENCOUNTER 2024-03-13 13:44 | Outpatient (REF) | payer OTHER, SELFPAY ==
[2024-03-13 17:27] LABS: MANUAL DIFF FLAG NO
[2024-03-13 17:30] LABS: Appearance Urine Turbid; Color Urine Yellow; Glucose Urine UA Negative (Negative); Leukocyte Esterase Urine Small (1+) (Negative); Nitrite Urine Negative (Negative); PH 5.5 (5.0-9.0); Specific Gravity - Urine >= 1.030 (1.005-1.025); UMIC TRIGGER UACC YES; Urine Blood Negative (Negative); Urine Ketones Trace mg/dL (Negative); Urine Protein 30 (1+) mg/dL (Neg-Trace)
[2024-03-13 17:41] LABS: Bacteria Urine None Seen (None Seen); Calcium Oxalate Crystals Urine Present; Hyaline Casts Urine 0-2 /LPF (0-2); RBC Urine 0-2 /HPF (0-2); Squamous Epithelial Cell Urine 0-2 /HPF (0-2); UACC Culture Trigger YES; WBC Urine 0-5 /HPF (0-5)
[2024-03-13 17:49] LABS: Basophils Percent Auto 0.5 % (0-2); Eosinophils Absolute Auto 0.3 X10*3/uL (0.0-0.4); Eosinophils Percent Auto 3.9 % (0-4); Hematocrit 39.7 % (37.0-47.0); Hemoglobin 12.2 g/dl (12.0-16.0); Imm Gran Abs Auto 0.02 X10*3/uL (0.00-0.03); Imm Gran Pct Auto 0.3 % (0.0-0.4); Mean Corpuscular HGB Conc 30.7 g/dl (31.0-35.0); Mean Corpuscular Hemoglobin 22.9 pg (27.0-33.0); Mean Corpuscular Volume 74.6 fL (80.0-98.0); Monocytes Absolute Auto 0.4 X10*3/uL (0.1-1.2); Monocytes Percent Auto 4.9 % (2-11); Neutrophils Absolute Auto 3.9 x10*3/uL (2.0-8.3); Neutrophils Percent Auto 51.4 % (45-73); Platelet Count 223 X10*3/uL (160-400); Red Blood Count 5.32 X10*6/uL (4.20-5.50); Red Cell Distribution Width 16.3 % (11.0-16.0); White Blood Count 7.6 X10*3/uL (4.8-10.8)
[2024-03-13 18:03] LABS: Albumin Level 4.1 g/dL (3.5-5.0); Anion Gap 13 (12-20); Aspartate Amino Transferase 33 U/L (5-31); Bilirubin Total 0.3 mg/dL (0.0-1.0); Blood Urea Nitrogen 14 mg/dL (9-16); Calcium 9.5 mg/dL (8.4-10.2); Carbon Dioxide 22 mmol/L (22-29); Chloride 108 mmol/L (96-108); Cholesterol 116 mg/dL (<200); Estimated Glomerular Filt Rate > 60; Glucose Fasting 89 mg/dL (60-99); HDL Cholesterol 28 mg/dL (>40); LDL Cholesterol Calculated 63 mg/dL (<100); Potassium 4.3 mmol/L (3.3-5.1); Sodium 139 mmol/L (135-145); Total Protein 7.9 g/dL (6.5-8.0); Triglycerides 126 mg/dL (<150)
[2024-03-13 19:09] LABS: Alanine Aminotransferase 15 U/L (0-31); Alkaline Phosphatase 74 U/L (39-117)
[2024-03-13 23:40] LABS: TSH reflex Free T4 1.97 uIU/mL (0.32-4.0)
== END 2024-03-13 13:45 | disposition home or self-care (01) ==
LOC: HO.WFDLDS 13:44
PROVIDERS: Visit Provider Nurse Practitioner Family
DX: Z00.00 Encounter for general adult medical examination without abnormal findings (principal)
CPT/HCPCS: 36415; 80053; 80061; 81001; 84443; 85025; 87086

== ENCOUNTER 2024-03-17 09:56 | Outpatient (AMB) | payer OTHER, SELFPAY ==
--- NOTE | 2024-03-17 09:59 | MHC.PC.OV ---
Vital Signs 03/17/24 10:09 Height 5 ft 10 in Weight 278 lb 6 oz BMI 39.9 BP 120/64 Blood Pressure Location Rt brachial Position Sitting Respiration 16 Pulse 98 Pulse Source Pulse Oximeter Temp 98.3 F Temp Source Oral Pulse Oximetry (%) 98 Oxygen Delivery Method Room Air Intake Visit Reasons: CPE Intake Note: patient here to establish care. Night Assistant Required: No Is last menstrual period known: Yes Last menstrual period: 02/15/24 Post menopausal: No Patient : No Allergies No Known Allergies [No Known Allergies*] Allergy (Verified 03/17/24 10:24) Medication List - Last Reconciled 03/17/24 by Qian Briggs CNP medroxyprogesterone (Depo-Provera) 150 mg IM [id number] 90 days Tobacco use date assessed: 03/17/24 Dental Screening Dental Screen Date: 03/17/24 Did you have a dental visit in the last 12 months?: Yes Did you have a dental problem in the last 6 months where you did not have access to dental care?: No Was dental information given to patient?: Patient has dentist HPI HPI Comments History of Present Illness Details 28-year-old female presents for transfer of care and review of recent lab results. Prior PCP? - [facility], Amalia Mello DNP Last office visit/CPE - 01/07/2022 Acute issue(s) - None Medications - Depo-Provera IM every 3 months Past Medical History - Iron-deficiency anemia, Obesity, vitamin-D deficiency, vitamin-D deficiency, juvenile arthritis, ADHD at childhood, myopia and hyperopia (wears prescription glasses) Surgical History - None Family History - MGF: Diabetes, hypertension, hyperlipidemia Social History - Nonsmoker. Does not vape. Drinks 2 shots of tequila socially. Denies recreational drug use - Has been making healthy dietary choices. Lifts weghts at home once weekly. Generally sleep well - Sexually active, in a monogamous relationship, no concern for STDs Health maintenance - Last eye exam was in 12/2023 at [facility] in [place]. She will sign a release for her PCP to obtain eye record - Last dental visit was almost a year ago; encouraged to schedule an appointment with his dentist for routine dental care - Last Tdap was on 03/19/2021 - Has not been vaccinated for the flu this season; declines vaccination - Last pap smear test with [facility] grain miller helper was in 04/17/2020; encouraged to call and schedule an appointment for a pap smear test Specialists - [facility] weight management [facility] Medical History (Updated 03/17/24 @ 10:56 by Qian Briggs CNP) Tremors of nervous system Arthritis Encounter for management and injection of depo-Provera Initiation of Depo Provera Morbid obesity BMI 38.0-38.9,adult Abdominal pain Juvenile arthritis Surgical History No pertinent past surgical history Family History (Updated 03/17/24 @ 10:18 by Diana Allison) Father Unknown family medical history Mother No problems noted. 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 1. Little interest or pleasure in doing things: not at all 2. Feeling down, depressed, or hopeless: not at all 3. Trouble falling or staying asleep, or sleeping too much: not at all 4. Feeling tired or having little energy: not at all 5. Poor appetite or overeating: not at all 6. Feeling bad about yourself - or that you are a failure or have let yourself or your family down: not at all 7. Trouble concentrating on things, such as reading the newspaper or watching television: not at all 8. Moving or speaking so slowly that other people could have noticed. Or the opposite - being so fidgety or restless that you have been moving around a lot more than usual: not at all 9. Thoughts that you would be better off or of hurting yourself in some way: not at all Total score: 0 Depression Screening Interpretation: Negative Depression Screening Done: Yes 99056 - PHQ-9 Billing: Yes Source: Developed by Drs. Ankit Morales, Karen Fan, Kody Rincon and colleagues, with an educational carmen from [employer]. Thrive Questionnaire Date Thrive assessed: 03/17/24 I am a: Patient What is your living situation today?: I have a steady place to live Within the past 12 months, did the food you bought not last and you didn't have the money to get more?: Never true Within the past 12 months, did you worry whether your food would run out before you got money to buy more?: Never true Do you have trouble paying for medicines?: No Do you have trouble getting transportation to medical appointments?: No Do you have trouble paying your heating and electricity bill?: No Do you have trouble taking care of your child, family member or friend?: No Do you have trouble with day-to-day activities such as bathing, preparing meals, shopping, managing finances, etc.?: No Are you currently unemployed and looking for a job?: No Are you interested in more education?: No Please select the resources that you would like help with: None Currently or been in a relationship where the following occur: No concerns reported THRIVE Score: 0 AUDIT C Alcohol Use Questionnaire (AUDIT-C) 1. How often do you have a drink containing alcohol?: Monthly or less 2. How many drinks containing alcohol do you have on a typical day when you are drinking?: 1 or 2 3. How often do you have six or more drinks on one occasion?: Never Total Score: 1 Score Reviewed/Action Taken: Yes PREET-7 AMB Questionnaire PREET-7 Date PREET - 7 assessed: 03/17/24 Feeling nervous, anxious, or on edge: 0 = Not at all Not being able to stop or control worryin = Not at all Worrying too much about different things: 0 = Not at all Trouble relaxin = Not at all Being so restless that it is hard to sit still: 0 = Not at all Becoming easily annoyed or irritable: 0 = Not at all Feeling afraid as if something awful might happen: 0 = Not at all Total PREET-7 score (0-4 normal; 5-9 mild; 10-14 moderate; 15-21 severe): 0 Source: Developed by Drs. Ankit Morales, Karen Fan, Kody Rincon and colleagues, with an educational carmen from [employer]. PREET-7 Assessment Billing PREET-7 Assessment Tool: PREET-7 Assessment 89724 Review of Systems Const Details: Denies chills, Denies fatigue, Denies fever(s), Denies headache(s) and Denies weakness HEENT Denies change in vision, Denies dizziness, Denies headache(s), Denies hearing loss, Denies nasal congestion, Denies sinus pain, Denies sinus pressure and Denies sore throat Card Denies chest pain, Denies lightheadedness, Denies dyspnea and Denies other (palpitations) Resp Denies cough, Denies dyspnea and Denies wheezing GI Denies abdominal pain, Denies melena, Denies hematochezia, Denies change in bowel habits, Denies dyspepsia and Denies nausea Denies hematuria and Denies dysuria Musc Denies abnormal gait, Denies myalgias, Denies arthralgias, Denies numbness and Denies tingling Skin/Breast Denies rash, Denies unusual bruising and Denies wounds Neuro Denies abnormal gait, Denies dizziness, Denies headache(s), Denies memory loss, Denies numbness, Denies Sensory deficit (Neuro), Denies tingling and Denies weakness Psych Denies anxiety, Denies depression and Denies memory loss Endo Denies cold intolerance, Denies fatigue, Denies heat intolerance, Denies polydipsia and Denies polyuria Nilo/Lymph Denies easy bleeding and Denies easy bruising Aller/Immun Denies wheezing Physical exam (Primary Care) Vital Signs: Last Vital Signs Temp 98.3 F 03/17/24 10:09 Pulse 98 03/17/24 10:09 Resp 16 03/17/24 10:09 BP 120/64 03/17/24 10:09 Pulse Ox 98 03/17/24 10:09 Oxygen Delivery Method Room Air 03/17/24 10:09 BMI result Body Mass Index 39.9 Tobacco/Smoking Status: Tobacco use Status Tobacco use date assessed 03/17/24 03/17/24 10:09 Patient Tobacco Use Status Never used Tobacco 03/17/24 10:01 e-Cigarette/Vaping Use Never Used 03/17/24 10:09 PHQ-9: PHQ-9 Score PHQ-9: Total score 0 03/17/24 10:26 Depression Screening Interpretation: Negative Thrive Assessment: Date of Thrive Assessment Date Thrive assessed 03/17/24 03/17/24 10:01 Currently or been in a relationship where the following occur: No concerns reported Const Other: General: no acute distress, well developed, alert and awake Nutritional Appearance: well nourished Orientation/consciousness: patient oriented x3 HENMT Head: Yes normocephalic and Yes atraumatic Ears: hearing grossly normal bilaterally and TM's normal bilaterally General nose exam: Normal external nose present and Normal nares present Mouth: Normal oral and palatal mucosa present and moist mucous membranes Teeth and gingiva: dentition normal Throat: Yes oropharynx normal Eyes Pupils: Equal, round and reactive pupils present and Pupil accommodation reflex normal EOM: EOMs intact bilaterally Neck Neck: Yes normal visual inspection, Yes no lymphadenopathy and Yes trachea midline Thyroid: Thyroid normal Carotids: no bruits Lymphatic: no lymphadenopathy noted Chest Chest palpation & inspection: normal inspection of the chest Resp Effort & Inspection: normal respiratory effort Auscultation: clear to auscultation bilaterally Cardio Rate: regular rate Rhythm: regular rhythm Heart sounds: S1 normal heart sound present, S2 normal heart sound present, no gallops, no murmurs and no rubs Bruits: no abdominal aortic bruits and no carotid bruits GI Palpation (GI): No Abdominal aortic bruit present, Soft to palpation, nontender, No hepatosplenomegaly present and No Rebound tenderness present Auscultation: normal bowel sounds General: Yes no CVA tenderness Back/Spine/Pelvis Back: no CVA tenderness Cervical Spine: cervical ROM normal and No Cervical spine tenderness Thoracic/Lumbar Spine: thoraco-lumbar ROM normal, No pain with thoraco-lumbar ROM, No thoracic spinal tenderness and No lumbar spinal tenderness Skin General: warm and dry. Normal skin color. Normal skin turgor Lesions: no lesions Rashes: no rashes Trauma: no lacerations or abrasions Wounds: no wounds Nails: normal Neuro General: patient oriented x3, gait normal and CN's II-XI intact bilaterally Cranial nerves: Yes Equal, round and reactive pupils present Cognition (Neuro): normal cognition Gait exam (Neuro): Normal gait present Motor exam (neuro): 5/5 motor strength present throughout Sensory Exam: No Sensory deficit (Neuro) Deep tendon reflexes (DTR's): Right patellar reflex intensity grade: 2+ and Left patellar reflex intensity grade: 2+ Extrem General: Yes normal to inspection, No edema and No calf tenderness Psych Appearance: grossly normal Affect: normal affect Attitude: cooperative Thought process: Normal thought process present Coding Level of Care Code Est Pt Level 3 (80817) Est Pt Prev Care 18-39y(33424) Diagnoses Normal physical examination, routine Z00.00 Vitamin A deficiency E50.9 Vitamin D deficiency E55.9 Class 2 severe obesity due to excess calories with serious comorbidity and body mass index (BMI) of 38.0 to 38.9 in adult E66.01; Z68.38 Body mass index: BMI 38.0-38.9 Obesity classification: adult class 2 (BMI 35 - 39.9) Obesity type: due to excess calories Serious obesity comorbidity presence: with serious comorbidity Iron deficiency anemia D50.9 Low HDL (under 40) E78.6 Elevated AST (SGOT) R74.01 Pap smear for cervical cancer screening Z12.4 Additional Codes PREET-7 Assessment Billing - PREET-7 Assessment Tool: PREET-7 Assessment 85090 ([id number]) PHQ-9 - 69247 - PHQ-9 Billing: Yes ([id number]) Assessment & Plan Assessment & Plan (1) Normal physical examination, routine: Code(s): Z00.00 - Encounter for general adult medical examination without abnormal findings Category: Medical Plan: No significant functional limitation noted. Continue current treatment regimen. Advised to get blood work done and follow-up in 2-3 weeks for labs review. Return sooner with symptoms or concerns. Verbalized understanding and agreed with the plan. (2) Vitamin A deficiency: Code(s): E50.9 - Vitamin A deficiency, unspecified Category: Medical Plan: Will check vitamin-D level and make changes as needed. (3) Vitamin D deficiency: Code(s): E55.9 - Vitamin D deficiency, unspecified Category: Medical Plan: Will check vitamin-D level and make changes as needed. (4) Obesity: Code(s): E66.9 - Obesity, unspecified Category: Medical Qualifiers: Body mass index: BMI 38.0-38.9 Obesity classification: adult class 2 (BMI 35 - 39.9) Obesity type: due to excess calories Serious obesity comorbidity presence: with serious comorbidity Qualified Code(s): E66.01 - Morbid (severe) obesity due to excess calories; Z68.38 - Body mass index [BMI] 38.0-38.9, adult Plan: She currently weighs 278 lb, BMI is 39.9. Healthy diet and routine exercise encouraged. Followed by [facility] weight management; encouraged to call and schedule follow-up appointment. Verbalized understanding and agreed with the plan. (5) Iron deficiency anemia: Code(s): D50.9 - Iron deficiency anemia, unspecified Category: Medical Plan: Recent RBC and H&H levels or normal; MCV is low, 74.6; iron level in 07/2023 was slightly low, 28. Will recheck CBC and iron profile and make changes as needed. Verbalized understanding and agreed with the plan. (6) Low HDL (under 40): Code(s): E78.6 - Lipoprotein deficiency Category: Medical Plan: Recent HDL level is low, 28; triglycerides, total cholesterol, and LDL levels are normal. Advised to limit foods high in saturated fat and avoid foods high in trans fat. Routine exercise encouraged. Will monitor lipid panel level periodically or if symptomatic. Verbalized understanding and agreed with the plan. (7) Elevated AST (SGOT): Code(s): R74.01 - Elevation of levels of liver transaminase levels Category: Medical Plan: Recent AST level is slightly elevated, 33. Hepatic steatosis is likely. Healthy diet and routine exercise encouraged. Will monitor liver panel periodically or if symptomatic. Verbalized understanding and agreed with the treatment plan. (8) Pap smear for cervical cancer screening: Code(s): Z12.4 - Encounter for screening for malignant neoplasm of cervix Category: Medical Plan: Last Pap smear test was almost 4 years ago. Followed by [facility] junior copywriter; encouraged to call and make an appointment for Pap smear test. Verbalized understanding and agreed with the plan. Orders: Orders Vitamin A Today E50.9 - Vitamin A deficiency, unspecified Vitamin D 25-OH Total Today E55.9 - Vitamin D deficiency, unspecified IRON PROFILE Today D50.9 - Iron deficiency anemia, unspecified Complete Blood Count no Diff Today D50.9 - Iron deficiency anemia, unspecified
[2024-03-17 10:09] VITALS: BP 120/64; PULSE 98; RESP 16; TEMP 36.8; O2SAT 98; BMI 39.9
== END 2024-03-17 10:47 | disposition home or self-care (01) ==
PROVIDERS: PCP Nurse Practitioner Family; Visit Provider Nurse Practitioner Family
DX: Z00.00 Encounter for general adult medical examination without abnormal findings (principal); E78.6 Lipoprotein deficiency; E66.01 Morbid (severe) obesity due to excess calories; Z68.38 Body mass index [BMI] 38.0-38.9, adult; E50.9 Vitamin A deficiency, unspecified; E55.9 Vitamin D deficiency, unspecified; D50.9 Iron deficiency anemia, unspecified; R74.01 Elevation of levels of liver transaminase levels

== ENCOUNTER 2024-03-17 11:03 | Outpatient (REF) | payer OTHER, SELFPAY ==
[2024-03-17 14:15] LABS: Appearance Urine Turbid; Color Urine Yellow; Glucose Urine UA Negative (Negative); Leukocyte Esterase Urine Small (1+) (Negative); Nitrite Urine Negative (Negative); Specific Gravity - Urine 1.025 (1.005-1.025); UMIC TRIGGER UACC YES; Urine Blood Large (3+) (Negative); Urine Ketones Negative (Negative); Urine Protein Trace mg/dL (Neg-Trace)
[2024-03-17 14:21] LABS: Bacteria Urine None Seen (None Seen); Hyaline Casts Urine 0-2 /LPF (0-2); RBC Urine >20 /HPF (0-2); UACC Culture Trigger YES
[2024-03-17 14:21] LABS: Hematocrit 41.8 % (37.0-47.0); Hemoglobin 12.7 g/dl (12.0-16.0); Mean Corpuscular HGB Conc 30.4 g/dl (31.0-35.0); Mean Corpuscular Volume 75.6 fL (80.0-98.0); Platelet Count 233 X10*3/uL (160-400); Red Blood Count 5.53 X10*6/uL (4.20-5.50); Red Cell Distribution Width 16.4 % (11.0-16.0)
[2024-03-17 14:39] LABS: Iron 24 mcg/dL (30-160); Percent Iron Saturation 7 % (15-50); Total Iron Binding Capacity 358 mcg/dL (228-428); Unsaturated Iron Binding 334 ug/dL
[2024-03-17 15:01] LABS: Vitamin D 25-OH Total 19.1 ng/mL (>30)
== END 2024-03-17 11:04 | disposition home or self-care (01) ==
LOC: HO.WFDLDS 11:03
PROVIDERS: Visit Provider Nurse Practitioner Family
DX: D50.9 Iron deficiency anemia, unspecified (principal); E55.9 Vitamin D deficiency, unspecified; Z00.00 Encounter for general adult medical examination without abnormal findings
CPT/HCPCS: 36415; 81001; 82306; 83540; 85027; 87086

== ENCOUNTER 2024-08-02 09:17 | Outpatient (REF) | payer OTHER, SELFPAY ==
--- OUTSIDE RECORDS SUMMARY | 2024-08-02 15:46 | XMS_ITS | Clinical Summary ---
Author Organization [facility] it Address [address] [place] [address] Care Team Providers Care Manager Data Warehousing Name Role Phone Shyam Camilo MD Primary [...] age to complete this topic Care Teams Manager Data Warehousing Relationship Specialty Start Date End Date Shyam Camilo MD [address] [place] [address] Dr [address] LORENE Bryant PCP - General Internal Medicine 01/26/19
== END 2024-08-02 09:18 | disposition home or self-care (01) ==
LOC: HO.LNP 09:17
PROVIDERS: PCP Nurse Practitioner Family; Visit Provider Advanced Practice Midwife
DX: Z12.4 Encounter for screening for malignant neoplasm of cervix (principal); Z01.419 Encounter for gynecological examination (general) (routine) without abnormal findings; Z30.09 Encounter for other general counseling and advice on contraception; Z30.011 Encounter for initial prescription of contraceptive pills; Z11.3 Encounter for screening for infections with a predominantly sexual mode of transmission

== ENCOUNTER 2024-08-02 09:17 | Outpatient (AMB) | payer OTHER, SELFPAY ==
--- NOTE | 2024-08-02 09:18 | A.OFFVIS_ITS ---
Vital Signs 08/02/24 09:24 Height 5 ft 10 in Weight 284 lb BMI 40.7 BP 116/72 Intake Visit Reasons: Annual/BC Hospice Nurse Practitioner: Hospice Nurse Practitioner Present (Veronika) Accompanied by: Daughter Allergies No Known Allergies [No Known Allergies*] Allergy (Verified 08/02/24 09:20) Medication List - Last Reconciled 08/02/24 by Charity Bass CNM No Known Home Meds Is last menstrual period known: Yes Last menstrual period: 07/21/24 Post menopausal: No Patient : No HPI HPI Annual/BC: Details: Patient is here with a 3-year-old daughter who has a had called for her annual exam. She was on Depo-Provera she said she is getting headaches so she stopped she also had gained weight with the she is getting regular periods she stopped it around 4 months ago she thinks she would like to go on control pills she has taken them before that she was forgetting to take she would be better now. Her LMP is almost 2 w ago, [facility] Medical History Tremors of nervous system Arthritis Encounter for management and injection of depo-Provera Initiation of Depo Provera Morbid obesity BMI 38.0-38.9,adult Abdominal pain Juvenile arthritis Surgical History No pertinent past surgical history Family History Father Unknown family medical history Mother No problems noted. 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 Current occupational exposures/hazards: No Sexual orientation: Straight/Heterosexual Cognitive needs: No Hearing needs: No Vision needs: Yes Female Reproductive History Menstrual Age of Menarche: 15 Duration of menses: 3-5 days Date of last menstrual period: 07/21/24 Total pregnancies: 1 Full term: 1 Date of last pap smear: 04/18/20 (negative pap smear) History of abnormal pap smear: No Physical Exam Vital Signs: Last Vital Signs BP 116/72 08/02/24 09:24 BMI result Body Mass Index 40.7 Const General: healthy appearing, comfortable, no acute distress, well developed and alert Nutritional Appearance: average body habitus Orientation/consciousness: patient oriented x3 Limitations: no limitations HEENT Head: Yes normocephalic Neck Neck: Yes normal visual inspection Chest Chest palpation & inspection: normal inspection of the chest Breast/axilla inspection: normal inspection of the breasts and normal inspection of the axillae Breast/axilla palpation: normal palpation of the breasts and normal palpation of the axillae Resp Effort & Inspection: normal respiratory effort GI Inspection: Yes normal to inspection, No Abdominal wall edema and No distended Palpation (GI): Soft to palpation and nontender Other: External exam within normal limits vagina is pink and moist cervix multiparous pink smooth healthy appearing with near fertile mucus which is clear. Cervix long close thick mobile nontender uterus midposition mobile nontender adnexa nontender fair tone with Kegel instructed on kegels General: Yes bladder normal to palpation External Female Exam: normal external appearance and normal appearance of the urethra Speculum Exam - Vagina: normal appearance of the vagina, normal palpation and normal vaginal discharge Speculum Exam - Cervix: normal appearance of the cervix, normal palpation and nontender Bimanual exam- vagina & uterus: normal bimanual exam, normal palpation, uterine size normal, bladder normal to palpation, consistency normal, normal palpation, uterine mobility normal, uterine shape normal, No Cervical tenderness present, non-tender and no cervical motion tenderness Bimanual Exam- Adnexa, other: normal adnexae, no masses, normal and No adnexal tenderness Neuro General: patient oriented x3 Results Reviewed Results Reviewed: Name: Meghan Tobias Age/Sex: 24/F Attending: Lurdes Momin CNM : 1995 Submitted by: Lurdes Momin CNM Copies to: MR #: [id number] Status: DEP REF Collected: 04/17/20 Location: .LAB Received: 04/18/20 Interpretation Satisfactory for evaluation. Negative for intraepithelial lesion or malignancy. Coccobacilli consistent with shift in vaginal opal. Clinical Information LMP: 03/21/20 Previous PAP test: Unknown Date, WNL Material Received ThinPrep Cervical Electronically Signed By: Chiqui Adams 04/18/20 1452 The Pap Test is a screening procedure with the inherent possibility of both false negative and false positive results. Results should be interpreted in the context of historic and current clinical findings. Reliability of the Pap Test is enhanced by performing the test on a regular repetitive basis. Patient: Meghan Tobias Age/Sex: 24/F MR#: [id number] Page 1 of 1 Assessment & Plan Assessment & Plan (1) Pap smear for cervical cancer screening: Code(s): Z12.4 - Encounter for screening for malignant neoplasm of cervix Category: Medical (2) Well woman exam with routine gynecological exam: Code(s): Z01.419 - Encounter for gynecological examination (general) (routine) without abnormal findings Category: Medical (3) control counseling: Code(s): Z30.09 - Encounter for other general counseling and advice on contraception Category: Medical (4) BCP ( control pills) initiation: Code(s): Z30.011 - Encounter for initial prescription of contraceptive pills Category: Medical (5) Encounter for screening examination for sexually transmitted disease: Code(s): Z11.3 - Encounter for screening for infections with a predominantly sexual mode of transmission Category: Medical Plan -----Discussed in this visit the following: healthy balanced diet, regular and consistent exercise, getting recommended health screens, doing the best she can for her particular health concerns, kegel exercises, pap smear screening and followup recommendations, mammography screening and SBE, normal changes in cycles in her life stage--- .----I reviewed available options for Control Methods and their associated side effect profiles. In particular, we discussed the method most of interest to her. I reviewed in great detail side effects and contraindications she has denied any liver problems but 1 of her liver function tests is 2 points above normal so the system flight it as a contraindication however it is only 2 points elevated so this is acceptable Discussed the relationship between being overweight and some liver functions. The danger signs of OCPs in what to do she experienced them and we will see her in about 3 months to see how she is doing on the pills and check her blood pressure. Reviewed backup method if she has ever in doubt until she is confident that she is taking in a regular manner. Reviewed exactly how to take the pills in the pack and to go back to the next. Prescription sent to her pharmacy of choice we will see her in Pap smear done as well as testing for STIs. Discussed in was better health healthy eating and weight loss. I Orders: Orders Hepatitis B Surface Antigen Today Z01.419 - Encounter for gynecological examination (general) (routine) without abnormal findings, Z11.3 - Encounter for screening for infections with a predominantly sexual mode of transmission, Z12.4 - Encounter for screening for malignant neoplasm of cervix, Z30.011 - Encounter for initial prescription of contraceptive pills, Z30.09 - Encounter for other general counseling and advice on contraception Hepatitis C Antibody Today Z01.419 - Encounter for gynecological examination (general) (routine) without abnormal findings, Z11.3 - Encounter for screening for infections with a predominantly sexual mode of transmission, Z12.4 - Encounter for screening for malignant neoplasm of cervix, Z30.011 - Encounter for initial prescription of contraceptive pills, Z30.09 - Encounter for other general counseling and advice on contraception HIV Ab/Ag Today Z01.419 - Encounter for gynecological examination (general) (routine) without abnormal findings, Z11.3 - Encounter for screening for infections with a predominantly sexual mode of transmission, Z12.4 - Encounter for screening for malignant neoplasm of cervix, Z30.011 - Encounter for initial prescription of contraceptive pills, Z30.09 - Encounter for other general counseling and advice on contraception Syphilis Screen Today Z01.419 - Encounter for gynecological examination (general) (routine) without abnormal findings, Z11.3 - Encounter for screening for infections with a predominantly sexual mode of transmission, Z12.4 - Encounter for screening for malignant neoplasm of cervix, Z30.011 - Encounter for initial prescription of contraceptive pills, Z30.09 - Encounter for other general counseling and advice on contraception Medications: New desog-e.estradiol/e.estradiol 0.15-0.02 mgx21 /0.01 mg x 5 start at the beginning of your period 1 tab PO DAILY 84 tabs 4RF Coding Level of Care Code Est Pt Prev Care 40-64y(41008) Diagnoses Pap smear for cervical cancer screening Z12.4 Well woman exam with routine gynecological exam Z01.419 control counseling Z30.09 BCP ( control pills) initiation Z30.011 Encounter for screening examination for sexually transmitted disease Z11.3
[2024-08-02 09:24] VITALS: BP 116/72; BMI 40.7
--- OUTSIDE RECORDS SUMMARY | 2024-08-02 09:48 | XMS_ITS | Data Portability ---
Author Organization RICARDO Storey [facility] [address] Address [address] [place] [address] Care Team Providers Care Document Specialist Name Role Phone [facility] Primary Care Provider Assessment No assessment recorded. Plan of Treatment Reminders Order Date Submit Date Provider Last Modified By Organization Details Last Modified Time Details Appointments None recorded. Lab None recorded. Referral None recorded. Procedures None recorded. Surgeries None recorded. Imaging None recorded. Medication Orders amoxicillin 875 mg-potassiu m clavulanate 125 mg tablet 2022 023 [facility] #[id number], [address] [place], [address], 3 12:12:14 Allergy Relief (fluticason e) 50 mcg/actuati on nasal spray,suspe nsion 2022 023 [id number] [address] [place], [address], 3 12:12:16 prednisone 50 mg tablet 2022 023 [id number] [address] [place], [address], 3 12:12:15 Patient TargetsNo targets recorded. Patient Instructions Encounter Date Encounter Id Patient Instructions Last Modified By Organization Details Last Modified Time 05/07/2022 [id number] Sinusitis is an infection of the lining of the sinus cavities in your head. Sinusitis often follows a cold. It causes pain and pressure in your head and face. In most cases, sinusitis gets better on its own in 1 to 2 weeks. But some mild symptoms may last for several weeks. Sometimes antibiotics are needed. if you are having problems. It's also a good idea to know your test results and keep a list of the medicines you take. How can you care for yourself at home? Take an ymzs-sqo-hewtttm pain medicine. Avoid Ibuprofen, Aleve and Aspirin if . If the doctor prescribed antibiotics, take them as directed. Do not stop taking them just because you feel better. You need to take the full course of antibiotics. Be careful when taking sjkt-qxd-qlmzfte cold or influenza (flu) medicines and Tylenol at the same time. Many of these medicines have acetaminophen, which is Tylenol. Read the labels to make sure that you are not taking more than the recommended dose. Too much acetaminophen (Tylenol) can be harmful. Breathe warm, moist air from a steamy shower, a hot bath, or a sink filled with hot water. Avoid cold, dry air. Using a humidifier in your home may help. Follow the directions for cleaning the machine. Use saline (saltwater) nasal washes. This can help keep your nasal passages open and wash out mucus and bacteria. You can buy saline nose drops at a grocery store or drugstore. Or you can make your own at home by adding 1 teaspoon (5 millilitres) of salt and 1 teaspoon (5 millilitres) of baking soda to 2 cups (500 mL) of distilled water. If you make your own, fill a bulb syringe with the solution, insert the tip into your nostril, and squeeze gently. Blow your nose. Put a hot, wet towel or a warm gel pack on your face 3 or 4 times a day for 5 to 10 minutes each time. Try a decongestant nasal spray like oxymetazoline (Drixoral). Do not use it for more than 3 days in a row. Using it for more than 3 days can make your congestion worse. Not available 05/07/2022 12:12:11 An ear infection may start with a cold and affect the middle ear (otitis media). It can hurt a lot. Most ear infections clear up on their own in a couple of days and do not need antibiotics. Also, antibiotics do not work against viruses, which may be the cause of your infection. Regular doses of pain relievers are the best way to reduce your fever and help you feel better. How can you care for yourself at home? Take pain medicines exactly as directed. If the doctor gave you a prescription medicine for pain, take it as prescribed. If you are not taking a prescription pain medicine, take an pgvq-ujq-gaulrrj medicine, such as acetaminophen (Tylenol), ibuprofen (Advil, Motrin), or naproxen (Aleve). Read and follow all instructions on the label. Do not take two or more pain medicines at the same time unless the doctor told you to. Many pain medicines have acetaminophen, which is Tylenol. Too much acetaminophen (Tylenol) can be harmful. Plan to take a full dose of pain reliever before bedtime. Getting enough sleep will help you get better. Try a warm, moist face cloth on the ear. It may help relieve pain. If your doctor prescribed antibiotics, take them as directed. Do not stop taking them just because you feel better. You need to take the full course of antibiotics. Not available 05/07/2022 12:12:04 Reason for Referral None Reported. Problems Name Problem SNOMED Code Status Onset Date Resolution Date Notes Provider Name and Address Organization Details Recorded Time Juvenile idiopathic arthritis 474436891 Active 023 RICARDO Oden - [facility] 3 11:29:30 Problem Notes None recorded. Medical Equipment None Reported. Allergies No known drug allergies Medications Name Sig Start Date Stop Date Status Note LastModified by Organization Details LastModified Time acetaminoph en 325 mg tablet TAKE 2 TABLETS BY MOUTH 3 TIMES DAILY NEEDED FOR PAIN active Not Available Not Available No t Available cefpodoxime 200 mg tablet TAKE 1 TABLET BY MOUTH TWICE DAILY WITH A MEAL/FOOD FOR 7 DAYS. 05/07 completed Not Available Not Available Not Available omeprazole 40 mg capsule,del ayed release TAKE 1 CAPSULE BY MOUTH DAILY. 05/07 completed Not Available Not Available Not Available ascorbic acid (vitamin C) 500 mg tablet TAKE 1 TABLET BY MOUTH EVERY DAY active Not Available Not Available No t Available prednisone 50 mg tablet Take 1 tablet every day by oral route in the morning for 3 days. 2022 active Not Available Not Available Not Avai lable ibuprofen 600 mg tablet TAKE 1 TABLET BY MOUTH EVERY 6 HOURS 05/07 completed Not Available Not Available Not Available ferrous sulfate 325 mg (65 mg iron) tablet,brianna yed release TAKE 1 TABLET BY MOUTH EVERY DAY 05/07 completed Not Available Not Available Not Available norethindro ne (contracept juan a) 0.35 mg tablet TAKE 1 TABLET BY MOUTH EVERY DAY active Not Available Not Available No t Available amoxicillin 875 mg-potassiu m clavulanate 125 mg tablet Take 1 tablet twice a day by oral route with meals for 10 days. 2022 active Not Available Not Available Not Avai lable hydrocortis one 1 % topical cream with perineal applicator APPLY RECTALLY TWICE DAILY X3 WEEKS 05/07 completed Not Available Not Available Not Available Gavilax 17 gram/dose oral powder DISSOLVE 17 GRAMS IN FLUIDS AND DRINK BY MOUTH DAILY. 05/07 completed Not Available Not Available Not Available Allergy Relief (fluticason e) 50 mcg/actuati on nasal spray,suspe nsion Prospect 1 spray twice a day by intranasa l route as directed for 30 days. 2022 active Not Available Not Available Not Avai lable Vitals Date Recorded Body height Body mass index (BMI) Body weight Body temperature Oxygen saturation Oxygen saturation in Arterial blood by Pulse oximetry Heart rate Respiratory rate Systolic blood pressure Diastolic blood pressure Provider Name and Address Organization Details Last Updated DateTime 3 177.8 cm 38.7 kg/m2 170267. 94 g 97 [degF] 99 % 99 % 71 /min 16 /min 112 mm[Hg] 76 mm[Hg] TAWNYA GALEANA PA - [facility] 3 11:31:49 Social History Question Answer Notes LastModified by [employer] Details LastModified Time Tobacco Smoking Status Never Smoker TAWNYA aguirre, [place] - [facility] 05/07/2022 11:29:50 Have You Recently Traveled Abroad? No [email or web address] Information not available 05/07/2022 Sex: Unknown Functional Status Question Answer Note LastModified by [employer] Details LastModified Time Do you use any illicit or recreational drugs? No [email or web address] Information not available 05/07/2022 Do you or have you ever used any other forms of tobacco or nicotine? No [email or web address] Information not available 05/07/2022 What is your level of alcohol consumption? None [email or web address] Information not available 05/07/2022 Mental Status None recorded. Family History Relationship Description Onset Age of this Age Resolved Age Notes LastModified by Organization Details LastModified Time Father No current problems or disability [email or web address] Not available 05/07 11:29:36 Mother No current problems or disability [email or web address] Not available 05/07 11:29:36 Medical History No medical history recorded. Gynecological HistoryNo gynecological history recorded. Obstetrics History GPAL:G 0 P 0 0 0 0 Past Encounters Encounter ID Performer Location Encounter Start Date Encounter Closed Date Diagnosis/Indication Diagnosis SNOMED-CT Code Diagnosis ICD10 Code Diagnosis Note [id number] [address] [place] [address] 05/25/2016 10:55:52 05/25/2016 11:21:50 [id number] [address] [place] [address] 07/16/2016 08:20:23 07/16/2016 08:43:19 [id number] [address] [place] [address] 11/27/2020 14:01:38 11/27/2020 16:58:27 [id number] [address] [place] [address] 06/16/2018 18:47:09 06/16/2018 20:03:36 [id number] [address] [place] [address] 01/30/2018 13:30:27 01/30/2018 14:53:11 [id number] [address] [place] [address] 09/28/2016 16:55:09 09/28/2016 17:41:15 [id number] [address] [place] [address] 07/01/2020 09:02:55 07/01/2020 10:14:57 [id number] [address] [place] [address] 09/26/2017 18:47:00 09/26/2017 19:23:54 [id number] [address] [place] [address] 05/19/2016 08:53:42 05/19/2016 09:27:15 [id number] [address] [place] [address] 05/19/2017 10:54:25 05/19/2017 11:42:49 [id number] [address] [place] [address] 04/29/2020 15:29:57 04/29/2020 16:44:42 [id number] [address] [place] [address] 07/07/2018 15:54:47 07/07/2018 16:35:31 [id number] [address] [place] [address] 11/08/2017 09:19:35 11/08/2017 10:11:36 [id number] [address] [place] [address] 05/04/2016 08:39:49 05/04/2016 08:59:15 [id number] Louis Song NP [address] [place] [address] 05/07/2022 10:40:02 05/07/2022 12:19:34 Acute bilateral otitis media [id number] H66.93 Health Concerns Section Related Observation LastModified by Organization Detai ls LastModified Time None Recorded Concern Status LastModified by Organization Details LastModified Time None Recorded Advance Directives Directive None Recorded Payers Insurance Date Sequence Insurance Name Policy Number Policy Goodman Covered Member ID Goodman Member ID Guarantor Name 05/07/2022 1 [facility] [employer] (MEDICAID HMO) [employer] Yuneiry E Tobias [id number] Yuneiry E Tobias Notes Date Note Type Note Provider Name and Address Organization Details Recorded Time 05/07/2022 text/html CongestionReport ed bypatient.Notes:nasal congestion with post nasal drip x 3 days. denies nay fever or fever with chills. no SOB or respiratory distress.Ear Pain Brief HPIReported bypatient.Location:pain radiates to neck; bilateral Onset/Timing:constant pain; gradual onset Duration:occurs daily; sensation/episode variable length Quality:throbbing pain;aching pain;sharp pain Severity:getting worse; current pain 5/10 Context:recent URI Alleviating factors:ototopical antibiotics: ; nasal steroid spray Aggravating factors:sinus infections; allergies Associated Symptoms:Cough;nasal congestion;hearing loss;sense of fullness/pressure Louis Song NP [address] [place], [address], [place] - [facility] 05/07/2022 12:13:45 OBGyn Episode No OBEpisode recorded.
--- OUTSIDE RECORDS SUMMARY | 2024-08-02 09:48 | XMS_ITS | Clinical Summary ---
[facility] Organization [facility] it Address [address] [place] [address] Care Team Providers Care Call Center Supervisor Name Role Phone Shyam Camilo MD Primary Care Provider Social History Tobacco Use Types Packs/Day Years Used Date Smoking Tobacco: Never Assessed Comments Unknown Sex and Gender Information Value Date Recorded Sex Assigned at Not on file Legal Sex Female 12:16 AM EST Gender Identity Not on file Sexual Orientation Not on file Plan of Treatment Health Maintenance Due Date Last Done Comments HPV Vaccines (1 - 3-dose series) 2012 DTaP,Tdap,and Td Vaccines (1 - Tdap) 2016 Hepatitis B Vaccines (1 of 3 - 19+ 3-dose series) 2016 Cervical Cancer Screening: P ap Smear 2018 COVID-19 Vaccine (2023-2 5 season) 2023 Influenza Vaccine (Season Ended) 2024 HIB Vaccines Aged Out No longer eligi ble based on patient's age to complete this topic Hepatitis A Vaccines Aged Out No long er eligible based on patient's age to complete this topic IPV Vaccines Aged Out No longer eligi ble based on patient's age to complete this topic MMR Vaccines Aged Out No longer eligi ble based on patient's age to complete this topic Meningococcal ACWY Vaccine Aged Out N o longer eligible based on patient's age to complete this topic Meningococcal B Vaccine Aged Out No l onger eligible based on patient's age to complete this topic Pneumococcal Vaccine: Pediat rics (0 to 5 Years) and At-Risk Patients (6 to 64 Years) Aged Out No longer eligible b ased on patient's age to complete this topic RSV Immunization Patients Un ame 20 months Aged Out No longer eligible b ased on patient's age to complete this topic Varicella Vaccines Aged Out No longer eligible based on patient's age to complete this topic Care Teams Call Center Supervisor Relationship Specialty Start Date End Date Shyam Camilo MD [address] [place] [address] Dr [address] LORENE Bryant PCP - General Internal Medicine 01/26/19
== END 2024-08-02 13:41 | disposition home or self-care (01) ==
LOC: HO.HWSM 09:17
PROVIDERS: PCP Nurse Practitioner Family; Visit Provider Advanced Practice Midwife
DX: Z01.419 Encounter for gynecological examination (general) (routine) without abnormal findings (principal); Z30.09 Encounter for other general counseling and advice on contraception; Z30.011 Encounter for initial prescription of contraceptive pills
CPT/HCPCS: 99395; 99459

== ENCOUNTER 2024-08-02 10:06 | Outpatient (REF) | payer OTHER, SELFPAY ==
--- OUTSIDE RECORDS SUMMARY | 2024-08-02 11:04 | XMS_ITS | Clinical Summary ---
Author Organization [facility] it Address [address] [place] [address] Care Team Providers Care Wet Machine Cutter Name Role Phone Shyam Camilo MD Primary [...] age to complete this topic Care Teams Wet Machine Cutter Relationship Specialty Start Date End Date Shyam Camilo MD [address] [place] [address] Dr [address] LORENE Bryant PCP - General Internal Medicine 01/26/19
[2024-08-02 11:48] LABS: HBsAGNum1 0.31 S/CO (0.00-0.99); HIV AB/AG Nonreactive (Nonreactive); HIV Num 1 0.06 S/CO (0.00-0.99); Hepatitis B Surface Antigen Negative (Negative); Syphilis Screen Nonreactive (Nonreactive); ~HepC Num1 0.12 S/CO (0.00-0.79); ~Hepatitis C Antibody Nonreactive (Nonreactive)
[2024-08-04 09:40] LABS: Bacterial Vaginosis PCR NEGATIVE (Negative); Candida Group PCR NOT DETECTED (Not Detect); Candida glab krusei PCR NOT DETECTED (Not Detect); Trichomonas vaginalis PCR NOT DETECTED (Not Detect)
[2024-08-04 10:12] LABS: CT PCR NOT DETECTED (Not Detect.); NG PCR NOT DETECTED (Not Detect.)
== END 2024-08-02 10:07 | disposition home or self-care (01) ==
LOC: HO.HHCL 10:06
PROVIDERS: Visit Provider Advanced Practice Midwife
DX: Z01.419 Encounter for gynecological examination (general) (routine) without abnormal findings (principal)
CPT/HCPCS: 36415; 81515; 86780; 86803; 87340; 87389; 87491; 87591; 99395; 99459

== ENCOUNTER 2024-08-02 15:43 | Outpatient (REF) | payer OTHER, SELFPAY ==
[2024-08-09 15:15] LABS: HPV Genotype 16 Negative (Negative); HPV Genotype 18 Negative (Negative); HPV High Risk Negative (Negative)
== END 2024-08-02 15:44 | disposition home or self-care (01) ==
LOC: HO.LNP 15:43
PROVIDERS: Visit Provider Advanced Practice Midwife
DX: Z01.419 Encounter for gynecological examination (general) (routine) without abnormal findings (principal)
CPT/HCPCS: 87626; 88175

== ENCOUNTER 2024-08-07 08:17 | Emergency (ER) | payer OTHER, SELFPAY ==
--- NOTE | ~2024-08-07 | CT_ITS ---
EXAMINATION: CT ABDOMEN AND PELVIS WITH CONTRAST CLINICAL INFORMATION: Diffuse abdominal pain. Diarrhea. COMPARISON: September 28, 2007 TECHNIQUE: Multidetector volumetric images were obtained from the superior aspect of the liver through the pubic symphysis following administration 85 mL of Omnipaque 350 intravenous contrast. Sagittal and coronal reformatted images were obtained on the technologist's workstation. Oral contrast: No This CT examination was performed using dose optimization techniques as appropriate, variously including the following: *Automated exposure control *Adjustment of mA and/or kV according to patient size (this includes techniques or standardized protocols for targeted exams where dose is matched to indication/reason for exam; i.e. extremities or head) *Use of iterative reconstruction technique DLP: 888 mGy centimeter. FINDINGS: LUNG BASES: No acute airspace disease. LIVER, GALLBLADDER, AND BILIARY TREE: Liver measures 15 cm. No focal lesion. Portal vein is patent. Hepatic veins and intrahepatic portion of the IVC are patent. No intrahepatic biliary ductal dilatation. Gallbladder is contracted. No pericholecystic fluid collection or gallbladder wall thickening. No extrahepatic biliary ductal dilatation. PANCREAS: Focal lesion. No peripancreatic fluid collection. No main pancreatic ductal dilatation. SPLEEN: 11 cm. No focal lesion. ADRENAL GLANDS: No nodular lesion. KIDNEYS AND URETERS: No renal mass. No hydronephrosis. 2 mm nonobstructing calculus in the lower pole pelvicalyceal system left kidney. BLADDER: Fluid-filled nearly collapsed. GASTROINTESTINAL TRACT: Diffuse concentric wall thickening involving the right hemicolon extending into the mid distal transverse colon with narrowed lumen and mild pericolonic edema pattern. There is concentric wall thickening in the distal ileal loops/terminal ileum. Appendix is normal. No intestinal obstruction pattern. No pneumoperitoneum. No ascites. No pneumatosis intestinalis. ABDOMINAL WALL: No gross umbilical hernia. Focal diastases abdominal rectus muscles in the periphery umbilical region. LYMPH NODES: Prominent lymph nodes, mesenteric and to a lesser extent retroperitoneum. VASCULAR: No aneurysm or dissection, abdominal aorta. PELVIC VISCERA: No gross masses. OSSEOUS STRUCTURES: No acute fracture or listhesis. No gross lytic or blastic lesions. Bony pelvis is intact. Patient's large body habitus. CT/CT abdomen pelvis w IV con IMPRESSION: Concerning inflammatory bowel disease such as Crohn's disease in the correct clinical settings. Nonobstructing nephrolithiasis, left kidney. Fleischner guidelines were followed. Electronically signed by: Louis Nuñez MD 08/07/2024 11:30 AM EDT RP
[2024-08-07 08:24] VITALS: BP 118/74; PULSE 93; RESP 16; TEMP 36.8; O2SAT 100; BMI 39.0
--- OUTSIDE RECORDS SUMMARY | 2024-08-07 08:45 | XMS_ITS | Clinical Summary ---
[facility] Organization [facility] Address [address] [place] [address] Care Team Providers Care Power Wheelchair Mechanic Name Role Phone Shyam Camilo MD Primary [...] age to complete this topic Care Teams Power Wheelchair Mechanic Relationship Specialty Start Date End Date Shyam Camilo MD [address] [place] [address] Dr [address] LORENE Bryant PCP - General Internal Medicine 01/26/19
--- OUTSIDE RECORDS SUMMARY | 2024-08-07 08:45 | XMS_ITS | Data Portability ---
Author Organization RICARDO Storey shantanu [address] Address [address] [place] [address] Care Team Providers Care Scrap Collector Name Role Phone [facility] Primary Care Provider Assessment No assessment recorded. Plan of Treatment Reminders Order Date Submit Date Provider Last Modified By Organization Details Last Modified Time Details Appointments None recorded. Lab None recorded. Referral None recorded. Procedures None recorded. Surgeries None recorded. Imaging None recorded. Medication Orders amoxicillin 875 mg-potassiu m clavulanate 125 mg tablet 2022 023 [facility]acy #[id number], [address] [place], [address], 3 12:12:14 Allergy Relief (fluticason e) 50 mcg/actuati on nasal spray,suspe nsion 2022 023 [id number] [address] [place], [address], 3 12:12:16 prednisone 50 mg tablet 2022 023 [id number] [address] [place], [address], 3 12:12:15 Patient TargetsNo targets recorded. Patient Instructions Encounter Date Encounter Id Patient Instructions Last Modified By Organization Details Last Modified Time 05/07/2022 [id number] Sinusitis is an infection of the lining [...] care for yourself at home? Take an isev-kzh-rsnvldu pain medicine. Avoid Ibuprofen, Aleve and Aspirin if . If the doctor prescribed antibiotics, take them as directed. Do not stop taking them just because you feel better. You need to take the full course of antibiotics. 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 94 g 97 [degF] 99 % 99 % 71 /min 16 /min 112 mm[Hg] 76 mm[Hg] TAWNYA GALEANA PA - [facility] 3 11:31:49 Social History Question Answer Notes LastModified by Pens[employer] Details LastModified Time Tobacco Smoking Status Never Smoker TAWNYA aguirre, [place] - [facility] 05/07/2022 11:29:50 Have You Recently Traveled Abroad? No [email or web address] Information not available 05/07/2022 Sex: Unknown Functional Status Question Answer Note LastModified by Pens[employer] Details LastModified Time Do you use any illicit or recreational drugs? No [email or web address] Information not available 05/07/2022 Do you or have you ever used any other forms of tobacco or nicotine? No [email or web address] Information not available 05/07/2022 What is your level of alcohol consumption? None [email or web address] Information not available 05/07/2022 Mental Status None recorded. Family History Relationship Description Onset Age of this Age Resolved Age Notes LastModified by Organization Details LastModified Time Father No current problems or disability [email or web address] Not available 05/07 11:29:36 Mother No current problems or disability [email or web address] Not available 05/07 11:29:36 Medical History No medical history recorded. Gynecological HistoryNo gynecological history recorded. Obstetrics History GPAL:G 0 P 0 0 0 0 Past Encounters Encounter ID Performer Location Encounter Start Date Encounter Closed Date Diagnosis/Indication Diagnosis SNOMED-CT Code Diagnosis ICD10 Code Diagnosis Note [id number] [address] [place] [address] 05/25/2016 10:55:52 05/25/2016 11:21:50 [id number] [address] [place] [address] 07/16/2016 08:20:23 07/16/2016 08:43:19 [id number] [address] [place] [address] 11/27/2020 14:01:38 11/27/2020 16:58:27 [id number] [address] [place] [address] 06/16/2018 18:47:09 06/16/2018 20:03:36 [id number] [address] [place] [address] 01/30/2018 13:30:27 01/30/2018 14:53:11 [id number] [address] [place] [address] 09/28/2016 16:55:09 09/28/2016 17:41:15 [id number] [address] [place] [address] 07/01/2020 09:02:55 07/01/2020 10:14:57 [id number] [address] [place] [address] 09/26/2017 18:47:00 09/26/2017 19:23:54 [id number] [address] [place] [address] 05/19/2016 08:53:42 05/19/2016 09:27:15 [id number] [address] [place] [address] 05/19/2017 10:54:25 05/19/2017 11:42:49 [id number] [address] [place] [address] 04/29/2020 15:29:57 04/29/2020 16:44:42 [id number] [address] [place] [address] 07/07/2018 15:54:47 07/07/2018 16:35:31 [id number] [address] [place] [address] 11/08/2017 09:19:35 11/08/2017 10:11:36 [id number] [address] [place] [address] 05/04/2016 08:39:49 05/04/2016 08:59:15 [id number] Louis Song [place] [address] [place] [address] 05/07/2022 10:40:02 05/07/2022 12:19:34 Acute bilateral otitis media [id number] H66.93 Health Concerns Section Related Observation LastModified by Organization Detai ls LastModified Time None Recorded Concern Status LastModified by Organization Details LastModified Time None Recorded Advance Directives Directive None Recorded Payers Insurance Date Sequence Insurance Name Policy Number Policy Goodman Covered Member ID Goodman Member ID Guarantor Name 05/07/2022 1 [facility] (MEDICAID HMO) [place] Yuneiry E Tobias [id number] Yuneiry E Tobias Notes Date Note Type [...] Song NP [address] [place], [address], [place] - [facility] 05/07/2022 12:13:45 OBGyn Episode No OBEpisode recorded.
[2024-08-07 09:23] LABS: Influenza A PCR NEGATIVE (Negative); Influenza B PCR NEGATIVE (Negative); Resp Syncy Virus RNA Qual PCR NEGATIVE (Negative); SARS COV2 PCR INHOUSE NEGATIVE (Negative)
--- NOTE | 2024-08-07 09:26 | ED.NAVMDI ---
HPI - Nausea/Vomiting/Diarrhea General Chief complaint: Nausea/Vomiting/Diarrhea Stated complaint: vomiting diarrhea headache Time Seen by Provider: 08/07/24 09:04 Source: patient Mode of arrival: ambulatory Limitations: no limitations History of Present Illness ED Provider: NIMISHA LINDSAY PA-C HPI Narrative: 28-year-old female with pmhx significant for GERD, arthritis, anemia presents to the ED today for evaluation of myalgias, nausea without vomiting, nonbloody diarrhea and diffuse abdominal pain x5 days. Reports headache that began yesterday. 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 Initially thought she had a GI bug however symptoms have continued. Reports approximately 12 episodes of loose stool daily. Stool is intermittently formed. Admits to recent travel to the [place] at the end of June (few weeks ago). Denies any abdominal surgeries. Denies EtOH consumption. Denies illicit substance use including marijuana. Denies urinary symptoms. Related Data Previous Rx's ?Medication ?Instructions ?Recorded desogestrel-e.estradiol 0.15 1 tab PO DAILY #84 tabs 08/02/24 mg-0.02 mg(21)/e.estrad 0.01 mg(5) tablet ciprofloxacin HCl 500 mg tablet 500 mg PO Q12H 10 days #20 tabs 08/07/24 ondansetron 4 mg disintegrating 4 mg PO DAILY PRN nausea and 08/07/24 tablet vomiting 5 days #7 tabs Allergies Allergy/AdvReac Type Severity Reaction Status Date / Time No Known Allergies Allergy Verified 08/07/24 08:27 [No Known Allergies*] Review of Systems Review of Systems: Yes all other systems are reviewed and are negative PMFSH Past Medical History Attestation statement: The following information was validated with the patient. Source: old records reviewed and nursing notes reviewed Medical History Tremors of nervous system Arthritis Encounter for management and injection of depo-Provera Initiation of Depo Provera Morbid obesity BMI 38.0-38.9,adult Abdominal pain Juvenile arthritis Surgical History No pertinent past surgical history Family History Family History Father Unknown family medical history Mother No problems noted. 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 Skin: Warm, dry, intact. No rashes or lesions. Head: Normocephalic, atraumatic. EENT: Hearing is intact b/l. Conjunctiva clear. Sclera is anicteric. PERRLA. EOM intact. Moist mucous membranes.? Cardiac: Chest wall symmetric. RRR Lungs: Normal respiratory effort without accessory muscle use. CTA bilaterally. Abdomen: obese abdomen, soft, non-tender, non-distended. No rebound tenderness or guarding. Positive BS x4. Neuro: AOx3. Normal speech. Ambulating with steady gait. Course Course Course Narrative: 0937 -- negative COVID, flu, RSV. Will add on basic labs, UA, stool studies. IV fluids and Zofran ordered. Will continue to monitor. 1146 -- CBC without leukocytosis or left shift. H&H stable. Chemistry without acute electrolyte abnormality requiring intervention. No JEFF. Random glucose 101. Liver function WNL. Lipase WNL. Beta quant undetectable, not . Urine without infection. CT abdomen/pelvis showing diffuse concentric wall thickening involving the right hemicolon extending into the mild distal transverse colon with narrow lumen in mild pericolonic edema. Concentric wall thickening in the distal ileal loop/terminal ileum concerning for inflammatory bowel disease such as Crohn's. Normal appendix. No evidence of bowel obstruction. There are also nonobstructing kidney stones noted to left kidney. Unlikely cause of patient's symptoms today. > GI panel/C diff testing sent > discussed all workup results with patient. Advised follow up with GI outpatient. Referral provided. Patient has remained stable throughout ED visit today. tolerating PO. Discussed worrisome signs and symptoms and when to return to the ED. All questions answered at this time. Patient is agreeable with disposition and stable for discharge. 1456 -- I received call from lab reguarding stool results. Patient tested positive for salmonella on GI panel. I did call patient to discuss results. Given multiple episodes of diarrhea per day, will be sending ciprofloxacin to pharmacy for treatment. She is agreeable. Discussed worrisome signs and symptoms and when to return to the ED. All questions answered at this time. Medications Administered Discontinued Medications Generic Name Dose Route Start Last Admin Trade Name Freq PRN Reason Stop Dose Admin Sodium Chloride 1,000 mls @ 999 mls/hr 08/07/24 09:45 08/07/24 12:58 Ns IV 08/07/24 10:45 Infused .Q1H1M JIM Infusion Iohexol 85 ml 08/07/24 11:14 08/07/24 11:15 Iohexol 350 Mg/Ml 100 Ml Infus..Btl IV 08/07/24 11:15 85 ml ONCE ONE Administration Ketorolac Tromethamine 30 mg 08/07/24 12:09 08/07/24 12:18 Ketorolac Tromethamine 30 Mg/Ml Vial IVPUSH 08/07/24 12:10 30 mg ONCE ONE Administration Ondansetron HCl 4 mg 08/07/24 09:33 08/07/24 09:50 Ondansetron Hcl 4 Mg/2 Ml Vial IVPUSH 08/07/24 09:34 4 mg ONCE ONE Administration Medical Decision Making Medical Decision Making MDM Narrative: 28-year-old female with pmhx significant for GERD, arthritis, anemia presents to the ED today for evaluation of myalgias, nausea without vomiting, nonbloody diarrhea and diffuse abdominal pain x5 days. Vital signs stable, afebrile. She is nontoxic appearing in no acute distress. Abdomen benign. Obese abdomen, soft, nondistended, nontender to palpation, no rebound tenderness or guarding. Differential diagnoses: gastroenteritis, colitis, diverticulosis, diverticulitis, viral syndrome. Lower suspicion for C diff as patient has not been on antibiotics recently. Abdominal exam without peritoneal signs. No evidence of acute abdomen at this time. Well appearing. Low suspicion for acute hepatobiliary disease (including acute cholecystitis), acute infectious processes (pneumonia, hepatitis, pyelonephritis, PID, TOA), vascular catastrophe, bowel obstruction or viscus perforation, ovarian cyst/ rupture/ torsion, ectopic. Presentation not consistent with other acute, emergent causes of abdominal pain at this time. Plan: labs, UA, stool studies, zofran, fluids, serial reassessment Differential Diagnosis Differential Diagnoses: The differential diagnosis associated with the presentation includes As above Admission/Observation Not indicated Lab Data MDM Lab Attestation statement: I reviewed the patient's lab results. As above 08/07/24 10:00 08/07/24 10:00 Labs: Lab Results 08/07/24 08/07/24 08/07/24 Range/Units 08:33 10:00 11:50 WBC 4.8 (4.8-10.8) X10*3/uL RBC 5.42 (4.20-5.50) X10*6/uL Hgb 12.7 (12.0-16.0) g/dl Hct 41.0 (37.0-47.0) % MCV 75.6 L (80.0-98.0) fL MCH 23.4 L (27.0-33.0) pg MCHC 31.0 (31.0-35.0) g/dl RDW 15.6 (11.0-16.0) % Plt Count 187 (160-400) X10*3/uL MPV 9.4 (9.4-12.3) fL Immature Gran % (Auto) 0.4 (0.0-0.4) % Neut % (Auto) 49.4 (45-73) % Lymph % (Auto) 39.7 (20-40) % Richardson % (Auto) 8.9 (2-11) % Eos % (Auto) 1.2 (0-4) % Baso % (Auto) 0.4 (0-2) % Lymph # (Auto) 1.9 (1.2-4.9) X10*3/uL Richardson # (Auto) 0.4 (0.1-1.2) X10*3/uL Eos # (Auto) 0.1 (0.0-0.4) X10*3/uL Baso # (Auto) 0.0 (0.0-0.2) X10*3/uL Abs Immat Gran (auto) 0.02 (0.00-0.03) X10*3/uL Absolute Neuts (auto) 2.4 (2.0-8.3) x10*3/uL Absolute Nucleated RBC 0.000 (0.0-0.012) X10*3/uL Nucleated RBC % (auto) 0.0 (0.0-0.2) /100WBC Sodium 137 (135-145) mmol/L Potassium 4.0 (3.3-5.1) mmol/L Chloride 106 (96-108) mmol/L Carbon Dioxide 25 (22-29) mmol/L Anion Gap 10 L (12-20) BUN 11 (9-16) mg/dL Creatinine 0.72 (0.5-1.4) mg/dL Estim Creat Clear Calc 169.0 Estimated GFR > 60 Random Glucose 101 (60-115) mg/dL Calcium 9.4 (8.4-10.2) mg/dL Magnesium 2.1 (1.6-2.6) mg/dL Total Bilirubin 0.4 (0.0-1.0) mg/dL Direct Bilirubin 0.2 (0.0-0.5) mg/dL AST 26 (5-31) U/L ALT 15 (0-31) U/L Alkaline Phosphatase 81 (39-117) U/L Total Protein 7.7 (6.5-8.0) g/dL Albumin 4.0 (3.5-5.0) g/dL Lipase 14 (8-78) U/L Beta HCG, Quant < 2 mIU/mL Urine Color Dark Yellow Urine Appearance Turbid Urine pH 5.5 (5.0-9.0) Ur Specific [place] 1.025 (1.005-1.025) Urine Protein 30 (1+) H (Neg-Trace) mg/dL Urine Glucose (UA) Negative (Negative) mg/dL Urine Ketones Trace (Negative) mg/dL Urine Blood Trace H (Negative) Urine Nitrite Negative (Negative) Ur Leukocyte Esterase Trace H (Negative) Urine RBC 0-2 (0-2) /HPF Urine WBC 0-5 (0-5) /HPF Ur Squamous Epith Cells 6-10 (0-2) /HPF Calcium Oxalate Crystal Present Urine Bacteria None Seen (None Seen) Hyaline Casts 0-2 (0-2) /LPF Stl C. cayetanensis PCR Not Detected (Not Detect.) Stool Rotavirus A PCR Not Detected (Not Detect.) Stl Adenov F 40/41 PCR Not Detected (Not Detect.) Stool Astrovirus (PCR) Not Detected (Not Detect.) Stool Campylobacter PCR Not Detected (Not Detect.) Stool Cryptosporidium PCR Not Detected (Not Detect.) Stl Sh Tox Pr E STEC PCR Not Detected (Not Detect.) Stool E coli O157 PCR Not applicable (Not Detect.) Stl Enterotoxigenic E PCR Not Detected (Not Detect.) Stool EPEC (PCR) Not Detected (Not Detect.) Stool EAEC (PCR) Not Detected (Not Detect.) Stl E. histolytica PCR Not Detected (Not Detect.) Stool Giardia Lamblia PCR Not Detected (Not Detect.) Stl P. shigelloides PCR Not Detected (Not Detect.) Stool Salmonella PCR Detected A (Not Detect.) Stool Sapovirus (PCR) Not Detected (Not Detect.) Stl Shigella/EIEC PCR Not Detected (Not Detect.) St Y.enterocolitica PCR Not Detected (Not Detect.) Stool Vibrio (PCR) Not Detected (Not Detect.) Stl Vibrio cholerae PCR Not Detected (Not Detect.) Stl Norovirus GI/GII PCR Not Detected (Not Detect.) C. difficile Tox B Gene NEGATIVE (Negative) Influenza Type A (PCR) NEGATIVE (Negative) Influenza Type B (PCR) NEGATIVE (Negative) RSV RNA Qual (PCR) NEGATIVE (Negative) SARS-CoV-2 RNA (RT-PCR) NEGATIVE (Negative) Independent Interpretation I performed an independent interpretation of an: CT Scan Interpretation: CT a/p showing bowel wall thickening, no bowel obstruction Radiology Impression Discussion of test interpretation with radiology: I have reviewed the radiologist's reading. Radiologist Impression: Procedure(s): CT abdomen pelvis w IV con Accession Number(s): [id number] cc: Nimisha Lindsay; Qian Briggs [facility]~ Report Number: [id number]: Total DLP = 888.00 mGy-cm EXAMINATION: CT ABDOMEN AND PELVIS WITH CONTRAST CLINICAL INFORMATION: Diffuse abdominal pain. Diarrhea. COMPARISON: September 28, 2007 TECHNIQUE: Multidetector volumetric images were obtained from the superior aspect of the liver through the pubic symphysis following administration 85 mL of Omnipaque 350 intravenous contrast. Sagittal and coronal reformatted images were obtained on the technologist's workstation. Oral contrast: No This CT examination was performed using dose optimization techniques as appropriate, variously including the following: *Automated exposure control *Adjustment of mA and/or kV according to patient size (this includes techniques or standardized protocols for targeted exams where dose is matched to indication/reason for exam; i.e. extremities or head) *Use of iterative reconstruction technique DLP: 888 mGy centimeter. FINDINGS: LUNG BASES: No acute airspace disease. LIVER, GALLBLADDER, AND BILIARY TREE: Liver measures 15 cm. No focal lesion. Portal vein is patent. Hepatic veins and intrahepatic portion of the IVC are patent. No intrahepatic biliary ductal dilatation. Gallbladder is contracted. No pericholecystic fluid collection or gallbladder wall thickening. No extrahepatic biliary ductal dilatation. PANCREAS: Focal lesion. No peripancreatic fluid collection. No main pancreatic ductal dilatation. SPLEEN: 11 cm. No focal lesion. ADRENAL GLANDS: No nodular lesion. KIDNEYS AND URETERS: No renal mass. No hydronephrosis. 2 mm nonobstructing calculus in the lower pole pelvicalyceal system left kidney. BLADDER: Fluid-filled nearly collapsed. GASTROINTESTINAL TRACT: Diffuse concentric wall thickening involving the right hemicolon extending into the mid distal transverse colon with narrowed lumen and mild pericolonic edema pattern. There is concentric wall thickening in the distal ileal loops/terminal ileum. Appendix is normal. No intestinal obstruction pattern. No pneumoperitoneum. No ascites. No pneumatosis intestinalis. ABDOMINAL WALL: No gross umbilical hernia. Focal diastases abdominal rectus muscles in the periphery umbilical region. LYMPH NODES: Prominent lymph nodes, mesenteric and to a lesser extent retroperitoneum. VASCULAR: No aneurysm or dissection, abdominal aorta. PELVIC VISCERA: No gross masses. OSSEOUS STRUCTURES: No acute fracture or listhesis. No gross lytic or blastic lesions. Bony pelvis is intact. Patient's large body habitus. CT/CT abdomen pelvis w IV con IMPRESSION: Concerning inflammatory bowel disease such as Crohn's disease in the correct clinical settings. Nonobstructing nephrolithiasis, left kidney. Fleischner guidelines were followed. Electronically signed by: Louis Nuñez MD 08/07/2024 11:30 AM EDT RP External Record Review External record reviewed: Inpatient record Prescription Management I considered prescription management with: Other (zofran) Social Determinants Patient?s care significantly limited by Social Determinants of Health including: Other Social Determinant of Health Critical Care Time Critical Care Time Critical Care Time: No Discharge Plan Discharge Clinical Impression: Diarrhea Patient Disposition: Home, Self-Care Instructions: Acute Diarrhea (ED) Additional Instructions: Your blood work today is reassuring. As discussed, the CT scan of your abdomen shows findings concerning for inflammatory bowel disease. Please follow up with a gastrointestinal doctor for this. I have provided you with a referral. Call them to establish care. They will not call you. I am sending Zofran to your pharmacy for nausea/vomiting. You may take fqkj-txf-xorqsip Pepto-Bismol or Imodium as needed for diarrhea. Make sure you are staying adequately hydrated. Follow up with outpatient providers as needed. Return with any new or worsening symptoms. In the case of an emergency call 911. Prescriptions: New ondansetron 4 mg tablet,disintegrating 4 mg PO DAILY PRN (Reason: nausea and vomiting) 5 Days Qty: 7 0RF ciprofloxacin HCl 500 mg tablet 500 mg PO Q12H 10 Days Qty: 20 0RF No Action desog-e.estradiol/e.estradiol 0.15-0.02 mgx21 /0.01 mg x 5 tablet 1 tab PO DAILY Qty: 84 4RF Rx Instructions: start at the beginning of your period Referrals: [facility] [Provider Group] - 3 days (?IBD) Qian Briggs, ISMAEL [Primary Care Provider] - Stand Alone Forms: Work/School Release Interventions: ED Discharge Assessment Last Done: 08/07/24 13:02 Discharge Date/Time: 08/07/24 13:03 Print Language: Vietnamese
[2024-08-07] MEDS: 0.9 % Sodium Chloride 1,000 ML 999 ML IV (09:50)
[2024-08-07] MEDS: ondansetron HCL 4 MG/2 ML VIAL IVPUSH (09:50)
[2024-08-07 10:10] LABS: MANUAL DIFF FLAG NO
[2024-08-07 10:11] LABS: Basophils Percent Auto 0.4 % (0-2); Eosinophils Absolute Auto 0.1 X10*3/uL (0.0-0.4); Eosinophils Percent Auto 1.2 % (0-4); Hemoglobin 12.7 g/dl (12.0-16.0); Imm Gran Abs Auto 0.02 X10*3/uL (0.00-0.03); Imm Gran Pct Auto 0.4 % (0.0-0.4); Lymphocytes Absolute Auto 1.9 X10*3/uL (1.2-4.9); Lymphocytes Percent Auto 39.7 % (20-40); Mean Corpuscular Hemoglobin 23.4 pg (27.0-33.0); Mean Corpuscular Volume 75.6 fL (80.0-98.0); Mean Platelet Volume 9.4 fL (9.4-12.3); Monocytes Absolute Auto 0.4 X10*3/uL (0.1-1.2); Monocytes Percent Auto 8.9 % (2-11); Neutrophils Absolute Auto 2.4 x10*3/uL (2.0-8.3); Neutrophils Percent Auto 49.4 % (45-73); Platelet Count 187 X10*3/uL (160-400); Red Blood Count 5.42 X10*6/uL (4.20-5.50); Red Cell Distribution Width 15.6 % (11.0-16.0); White Blood Count 4.8 X10*3/uL (4.8-10.8)
[2024-08-07 10:12] LABS: Appearance Urine Turbid; Color Urine Dark Yellow; Glucose Urine UA Negative (Negative); Leukocyte Esterase Urine Trace (Negative); Nitrite Urine Negative (Negative); PH 5.5 (5.0-9.0); Specific Gravity - Urine 1.025 (1.005-1.025); UMIC TRIGGER UACC YES; Urine Blood Trace (Negative); Urine Ketones Trace mg/dL (Negative); Urine Protein 30 (1+) mg/dL (Neg-Trace)
[2024-08-07 10:25] LABS: Bacteria Urine None Seen (None Seen); Calcium Oxalate Crystals Urine Present; Hyaline Casts Urine 0-2 /LPF (0-2); RBC Urine 0-2 /HPF (0-2); WBC Urine 0-5 /HPF (0-5)
[2024-08-07 10:31] VITALS: BP 112/57; PULSE 80; RESP 14; TEMP 36.2; O2SAT 98
[2024-08-07 10:34] LABS: Alanine Aminotransferase 15 U/L (0-31); Alkaline Phosphatase 81 U/L (39-117); Anion Gap 10 (12-20); Aspartate Amino Transferase 26 U/L (5-31); Bilirubin Direct 0.2 mg/dL (0.0-0.5); Bilirubin Total 0.4 mg/dL (0.0-1.0); Blood Urea Nitrogen 11 mg/dL (9-16); Calcium 9.4 mg/dL (8.4-10.2); Carbon Dioxide 25 mmol/L (22-29); Chloride 106 mmol/L (96-108); Estimated Glomerular Filt Rate > 60; Glucose Random 101 mg/dL (60-115); Lipase 14 U/L (8-78); Magnesium 2.1 mg/dL (1.6-2.6); Sodium 137 mmol/L (135-145); Total Protein 7.7 g/dL (6.5-8.0)
[2024-08-07 10:36] LABS: HCG Quantitative < 2 mIU/mL
[2024-08-07] MEDS: iohexoL 350 MG/ML 100 ML INFUS..BTL 85 ML IV (11:15)
[2024-08-07 12:00] VITALS: BP 119/69; PULSE 78; RESP 16; TEMP 36.9; O2SAT 99
[2024-08-07] MEDS: Ketorolac Tromethamine 30 MG/ML VIAL IVPUSH (12:18)
[2024-08-07 12:51] LABS: CDiff Gene PCR NEGATIVE (Negative)
[2024-08-07 13:02] VITALS: BP 119/69; PULSE 78; RESP 16; TEMP 36.9; O2SAT 99
[2024-08-07 14:28] LABS: Adenovirus F 40/41 Not Detected (Not Detect.); Astrovirus Not Detected (Not Detect.); Campylobacter Not Detected (Not Detect.); Cryptosporidium Not Detected (Not Detect.); Cyclospora cayetanensis Not Detected (Not Detect.); E. coli EAEC Not Detected (Not Detect.); E. coli EPEC Not Detected (Not Detect.); E. coli ETEC Not Detected (Not Detect.); E. coli STEC Not Detected (Not Detect.); Entamoeba histolytica Not Detected (Not Detect.); Giardia lamblia Not Detected (Not Detect.); Norovirus GI/GII Not Detected (Not Detect.); Plesiomonas shigelloides Not Detected (Not Detect.); Rotavirus A Not Detected (Not Detect.); Sapovirus Not Detected (Not Detect.); Shigella sp./EIEC Not Detected (Not Detect.); Vibrio Not Detected (Not Detect.); Vibrio Cholerae Not Detected (Not Detect.); Yersinia enterocolitica Not Detected (Not Detect.)
[2024-08-07 14:53] LABS: Salmonella Detected (Not Detect.)
== END 2024-08-07 13:03 | disposition home or self-care (01) ==
PROVIDERS: Physician Assistant Medical; Emergency Provider Emergency Medicine; PCP Nurse Practitioner Family
DX: R19.7 Diarrhea, unspecified (principal); R11.2 Nausea with vomiting, unspecified; R51.9 Headache, unspecified; Z03.818 Encounter for observation for suspected exposure to other biological agents ruled out
CPT/HCPCS: 0241U; 36415; 74177; 80048; 80076; 81001; 83690; 83735; 84702; 85025; 87493; 87507; 96361; 96374; 96375; 99284; J1885; J2405; Q9967

== ENCOUNTER → 2024-08-07 10:43 | Outpatient (BNV) | payer OTHER, SELFPAY | PROVIDERS: Emergency Provider Emergency Medicine; PCP Nurse Practitioner Family; Visit Provider Radiology Diagnostic Radiology | DX: N20.0 Calculus of kidney (principal) | CPT/HCPCS: 74177 ==

== ENCOUNTER 2024-08-11 09:30 | Outpatient (AMB) | payer OTHER, SELFPAY ==
--- NOTE | 2024-08-11 09:32 | MHC.PC.OV ---
Vital Signs 08/11/24 09:38 Height 5 ft 10 in Weight 278 lb BMI 39.9 BP 129/60 Blood Pressure Location Lt brachial Position Sitting Respiration 16 Pulse 62 Pulse Source Pulse Oximeter Temp 98.4 F Temp Source Oral Pulse Oximetry (%) 100 Oxygen Delivery Method Room Air Intake Visit Reasons: EDF / Re:stomach pain, fever and diarrhea Intake Note: patient her for EDF for stomach pain, fever and diarrhia. 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 Required: No Is last menstrual period known: Yes Last menstrual period: 07/21/24 Post menopausal: No Patient : No Allergies No Known Allergies [No Known Allergies*] Allergy (Verified 08/11/24 09:52) Medication List - Last Reconciled 08/11/24 by Qian Briggs CNP ciprofloxacin HCl 500 mg PO Q12H 10 days desog-e.estradiol/e.estradiol 0.15-0.02 mgx21 /0.01 mg x 5 1 tab PO DAILY ondansetron 4 mg PO DAILY PRN 5 days Tobacco use date assessed: 08/11/24 Dental Screening Dental Screen Date: 08/11/24 Did you have a dental visit in the last 12 months?: Yes Did you have a dental problem in the last 6 months where you did not have access to dental care?: No Was dental information given to patient?: Patient has dentist HPI HPI Comments History of Present Illness Details 28-year-old female, accompanied by her daughter, presents for ED discharge follow-up. She was evaluated/treated at [facility] on 08/07/2024 for headache, myalgia, nausea, nonbloody diarrhea, and diffuse abdominal pain. Labs were unrevealing. CT a/p revealed bowel wall thickening, no bowel obstruction, and nonobstructing nephrolithiasis of left kidney. No acute abdomen. She was stapled and discharged home with recommendation to follow-up with Gastroenterology. She offers no complaints and denies acute symptoms at this time. [facility] Medical History Tremors of nervous system Arthritis Encounter for management and injection of depo-Provera Initiation of Depo Provera Morbid obesity BMI 38.0-38.9,adult Abdominal pain Juvenile arthritis Surgical History No pertinent past surgical history Family History Father Unknown family medical history Mother No problems noted. 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 1. Little interest or pleasure in doing things: not at all 2. Feeling down, depressed, or hopeless: not at all 3. Trouble falling or staying asleep, or sleeping too much: not at all 4. Feeling tired or having little energy: not at all 5. Poor appetite or overeating: not at all 6. Feeling bad about yourself - or that you are a failure or have let yourself or your family down: not at all 7. Trouble concentrating on things, such as reading the newspaper or watching television: not at all 8. Moving or speaking so slowly that other people could have noticed. Or the opposite - being so fidgety or restless that you have been moving around a lot more than usual: not at all 9. Thoughts that you would be better off or of hurting yourself in some way: not at all Total score: 0 Source: Developed by Drs. Ankit Morales, Karen Fan, Kody Rincon and colleagues, with an educational carmen from [employer]. Thrive Questionnaire Date Thrive assessed: 03/17/24 I am a: Patient What is your living situation today?: I have a steady place to live Within the past 12 months, did the food you bought not last and you didn't have the money to get more?: Never true Within the past 12 months, did you worry whether your food would run out before you got money to buy more?: Never true Do you have trouble paying for medicines?: No Do you have trouble getting transportation to medical appointments?: No Do you have trouble paying your heating and electricity bill?: No Do you have trouble taking care of your child, family member or friend?: No Do you have trouble with day-to-day activities such as bathing, preparing meals, shopping, managing finances, etc.?: No Are you currently unemployed and looking for a job?: No Are you interested in more education?: No Please select the resources that you would like help with: None Currently or been in a relationship where the following occur: No concerns reported THRIVE Score: 0 AUDIT C Alcohol Use Questionnaire (AUDIT-C) 1. How often do you have a drink containing alcohol?: Never Total Score: 0 PREET-7 AMB Questionnaire PREET-7 Date PREET - 7 assessed: 03/17/24 Feeling nervous, anxious, or on edge: 0 = Not at all Not being able to stop or control worryin = Not at all Worrying too much about different things: 0 = Not at all Trouble relaxin = Not at all Being so restless that it is hard to sit still: 0 = Not at all Becoming easily annoyed or irritable: 0 = Not at all Feeling afraid as if something awful might happen: 0 = Not at all Total PREET-7 score (0-4 normal; 5-9 mild; 10-14 moderate; 15-21 severe): 0 Source: Developed by Drs. Ankit Morales, Karen Fan, Kody Rincon and colleagues, with an educational carmen from [employer]. Review of Systems Const Details: Const Denies chills, Denies fatigue, Denies fever(s), Denies headache(s) and Denies weakness ENT Denies dizziness and Denies headache(s) Card Denies chest pain, Denies lightheadedness, Denies dyspnea and Denies other (Palpitations) Resp Denies cough, Denies dyspnea, Denies wheezing and Denies other ( shortness of breath) GI Denies abdominal pain, Denies melena, Denies hematochezia, Denies change in bowel habits, Denies dyspepsia and Denies nausea Denies hematuria and Denies dysuria Musc Denies abnormal gait, Denies myalgias, Denies arthralgias, Denies numbness and Denies tingling Skin/Breast Denies rash, Denies unusual bruising and Denies wounds Neuro Denies abnormal gait, Denies dizziness, Denies headache(s), Denies memory loss, Denies numbness, Denies Sensory deficit (Neuro), Denies tingling and Denies weakness Psych Denies anxiety, Denies depression, Denies memory loss Endo Denies cold intolerance, Denies fatigue, Denies heat intolerance, Denies polydipsia and Denies polyuria Aller/Immun Denies wheezing Physical exam (Primary Care) Vital Signs: Last Vital Signs Temp 98.4 F 08/11/24 09:38 Pulse 62 08/11/24 09:38 Resp 16 08/11/24 09:38 BP 129/60 08/11/24 09:38 Pulse Ox 100 08/11/24 09:38 Oxygen Delivery Method Room Air 08/11/24 09:38 BMI result Body Mass Index 39.9 Tobacco/Smoking Status: Tobacco use Status Tobacco use date assessed 08/11/24 08/11/24 09:41 Patient Tobacco Use Status Never used Tobacco 08/11/24 09:35 e-Cigarette/Vaping Use Never Used 08/11/24 09:35 PHQ-9: PHQ-9 Score PHQ-9: Total score 0 08/11/24 09:35 Thrive Assessment: Date of Thrive Assessment Date Thrive assessed 03/17/24 08/11/24 09:35 Currently or been in a relationship where the following occur: No concerns reported Const Other: General: no acute distress and well developed Nutritional Appearance: well nourished Orientation/consciousness: patient oriented x3 HENMT Head: Yes normocephalic and Yes atraumatic Eyes General: appearance normal, both eyes and all related structures Pupils: Equal, round and reactive pupils present EOM: EOMs intact bilaterally Resp Effort & Inspection: normal respiratory effort Auscultation: clear to auscultation bilaterally Cardio Rate: regular rate Rhythm: regular rhythm Heart sounds: S1 normal heart sound present, S2 normal heart sound present, no gallops, no murmurs and no rubs GI Palpation (GI): No Abdominal aortic bruit present, Soft to palpation, nontender, No hepatosplenomegaly present and No Rebound tenderness present Auscultation: normal bowel sounds General: Yes no CVA tenderness Back/Spine/Pelvis Back: no CVA tenderness Cervical Spine: cervical ROM normal and No Cervical spine tenderness Thoracic/Lumbar Spine: thoraco-lumbar ROM normal, No pain with thoraco-lumbar ROM, No thoracic spinal tenderness and No lumbar spinal tenderness Extrem General: Yes normal to inspection, No edema and No calf tenderness Skin General: warm and dry. Normal skin color. Normal skin turgor Neuro General: patient oriented x3, gait normal and no focal neuro deficit Cranial nerves: Yes Equal, round and reactive pupils present Cognition (Neuro): normal cognition Gait exam (Neuro): Normal gait present Sensory Exam: No Sensory deficit (Neuro) Psych Appearance: grossly normal Affect: normal affect Attitude: cooperative Thought process: Normal thought process present Coding Level of Care Code Est Pt Level 4 (36144) Diagnoses Abdominal pain R10.9 Assessment & Plan Assessment & Plan (1) Abdominal pain: Code(s): R10.9 - Unspecified abdominal pain Category: Medical Plan: Resolved. Referred to [facility] gastroenterology for follow-up. Encouraged to perform a started blood work and follow-up for an extended physical exam or after 03/17/2025. Return sooner with symptoms or concerns. Verbalized understanding and agreed with the plan. Orders: Referrals Gastroenterology Referral R10.9 - Unspecified abdominal pain
[2024-08-11 09:38] VITALS: BP 129/60; PULSE 62; RESP 16; TEMP 36.9; O2SAT 100; BMI 39.9
--- OUTSIDE RECORDS SUMMARY | 2024-08-11 09:44 | XMS_ITS | Clinical Summary ---
Author Organization [facility] it Address [address] [place] [address] Care Team Providers Care Social Worker Masters Name Role Phone Shyam Camilo MD Primary [...] age to complete this topic Care Teams Social Worker Masters Relationship Specialty Start Date End Date Shyam Camilo MD [address] [place] [address] [address] LORENE Bryant PCP - General Internal Medicine 01/26/19
== END 2024-08-11 10:00 | disposition home or self-care (01) ==
LOC: HO.HMCFM 09:31
PROVIDERS: PCP Nurse Practitioner Family; Visit Provider Nurse Practitioner Family
DX: R10.9 Unspecified abdominal pain (principal)

== ENCOUNTER → 2024-08-11 09:30 | Outpatient (BNVA) | payer OTHER, SELFPAY | PROVIDERS: PCP Nurse Practitioner Family; Visit Provider Nurse Practitioner Family | DX: R10.9 Unspecified abdominal pain (principal) | CPT/HCPCS: 99212 ==

== ENCOUNTER 2024-10-05 18:10 | Emergency (ER) | payer OTHER, SELFPAY ==
--- NOTE | ~2024-10-05 | XR_ITS ---
CLINICAL HISTORY: mid FA pain after fall 2 view left forearm Comparison: None provided Findings: No fractures or dislocations. No joint effusion. No significant arthritic change. No radiopaque foreign body. IMPRESSION: No acute findings This document has been electronically signed by: Dante Burton MD on 10/05/2024 18:56:49
[2024-10-05 18:21] VITALS: BP 122/68; PULSE 86; RESP 16; TEMP 36.2; O2SAT 99; BMI 39.8
--- NOTE | 2024-10-05 18:22 | ED.GENADULT ---
HPI - General Adult General Chief complaint: Extremity Injury, Upper Stated complaint: head injury, fall;; left arm numbness Time Seen by Provider: 10/05/24 18:25 Source: patient, RN notes reviewed and old records reviewed Mode of arrival: ambulatory Limitations: no limitations History of Present Illness ED Provider: Sujatha HPI narrative: Patient is a 29-year-old female presenting with complaint of headache and left forearm pain after a fall. Pain radiates up to left shoulder and left side of neck. States she fell backwards while roller skating with her kids. Denies LOC, not anticoagulated. Denies any vision changes, nausea/vomiting. Denies any decreased ROM to elbow, wrist, shoulder. She states primary concern is left forearm pain. MD complaint: left forearm pain Onset (ago): hour(s) Related Data Previous Rx's ?Medication ?Instructions ?Recorded desogestrel-e.estradiol 0.15 1 tab PO DAILY #84 tabs 08/02/24 mg-0.02 mg(21)/e.estrad 0.01 mg(5) tablet ciprofloxacin HCl 500 mg tablet 500 mg PO Q12H 10 days #20 tabs 08/07/24 ondansetron 4 mg disintegrating 4 mg PO DAILY PRN nausea and 08/07/24 tablet vomiting 5 days #7 tabs cyclobenzaprine 10 mg tablet 10 mg PO TID PRN muscle spasm #10 10/05/24 tabs Allergies Allergy/AdvReac Type Severity Reaction Status Date / Time No Known Allergies (No Known Allergy Verified 10/05/24 18:24 Allergies*) Review of Systems Review of Systems: As per HPI Yes all other systems are reviewed and are negative Constitutional: Constitutional: Reports as per HPI [facility] Past Medical History Medical History Tremors of nervous system Arthritis Encounter for management and injection of depo-Provera Initiation of Depo Provera Morbid obesity BMI 38.0-38.9,adult Abdominal pain Juvenile arthritis Surgical History No pertinent past surgical history Family History Family History Father Unknown family medical history Mother No problems noted. 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 Blood pressure normal. Heart rate normal. Respiratory rate normal. Temperature normal. Oxygen saturation normal. Const General: cooperative, healthy appearing and no acute distress Orientation/consciousness: oriented to person, oriented to place, oriented to time and patient oriented x3 Limitations: no limitations HENMT Head: Yes normocephalic, No De Paz's sign and No periorbital ecchymosis Ears: external ears normal, TM's normal bilaterally and EAC's normal General nose exam: Normal external nose present Face and sinus: Yes face symmetric Mouth: oropharynx normal and moist mucous membranes Throat: Yes uvula midline Eyes Pupils: Equal, round and reactive pupils present Neck Neck: Yes normal visual inspection, Yes full ROM and Yes supple Resp Effort & Inspection: normal respiratory effort and able to speak in complete sentences Auscultation: clear to auscultation bilaterally Cardio Rate: regular rate Rhythm: regular rhythm Heart sounds: S1 normal heart sound present and S2 normal heart sound present GI Palpation (GI): Soft to palpation and nontender Auscultation: normoactive bowel sounds General: Yes no CVA tenderness Back/Spine/Pelvis Back: no CVA tenderness Cervical Spine: normal cervical lordosis, cervical ROM normal, cervical muscular tenderness (left lateral), No Cervical spine tenderness and No step off deformity Thoracic/Lumbar Spine: thoracic and lumbar spine normal to inspection, thoraco-lumbar ROM normal, No pain with thoraco-lumbar ROM, No thoracic spinal tenderness and No lumbar spinal tenderness Skin General skin exam: elasticity normal and turgor normal Neuro General: oriented to person, oriented to place, oriented to time, patient oriented x3, gait normal, tone normal, moves all extremities, Normal light touch and pain sensation, no focal motor deficits, CN's II-XI intact bilaterally and deep tendon reflexes 2+ bilaterally Cranial nerves: Yes Equal, round and reactive pupils present Cognition (Neuro): normal cognition Motor exam (neuro): 5/5 motor strength present throughout, Normal motor muscle tone present throughout and Motor abnormalities not present Extrem General: Yes full ROM, Yes no pedal edema and Yes no calf tenderness Left upper extremity: normal to inspection, full ROM, normal capillary refill and elbow/forearm Details: normal to inspection, tenderness Location: of the mid-shaft forearm, normal ROM and distal pulses intact; no swelling, no unusual warmth, no ecchymosis and no deformity Psych Mental Status: mental status grossly normal Affect: normal affect Thought process: Normal thought process present Course Course Course Narrative: This is a rapid medical exam performed by Molly Solares NP: Additional HPI, ROS, PE not included below will be deferred to primary provider. Patient is a 29-year-old female presenting with complaint of headache and left forearm pain after a fall. Pain radiates up to left shoulder and left side of neck. States she fell backwards while roller skating with her kids. Denies LOC, not anticoagulated. Denies any vision changes, nausea/vomiting. Plan: xray Medical Decision Making Medical Decision Making MDM Narrative: Patient is a 29-year-old female presenting with complaint of headache and left forearm pain after a fall. On exam patient is awake, A+Ox3, VS WNL, afebrile, normal neurological exam without focal deficits, physical exam findings as above. Given reported symptoms and physical exam findings, initial differential includes but is not limited to left forearm contusion versus fracture versus muscle strain. CT head not indicated based on nexus criteria. X-ray left forearm notable for no acute fracture. My interpretation is in agreement with the radiologist's interpretation. Results discussed with patient and all questions answered. Will send prescription for Flexeril, discussed with patient she will likely be more sore tomorrow and the following day. Advised Tylenol and ibuprofen as well. Follow up with PCP as needed. Return precautions discussed. Patient verbalized understanding of and agreement with plan. Differential Diagnosis Differential Diagnoses: The differential diagnosis associated with the presentation includes as per [facility] Admission/Observation Consideration of admission/observation: Escalation of care including admission/observation considered .admit Independent Interpretation I performed an independent interpretation of an: Plain X-Ray Interpretation: No acute fracture left forearm x-ray Radiology Impression Discussion of test interpretation with radiology: I have reviewed the radiologist's reading. Radiologist Impression: IMPRESSION: No acute findings External Record Review External record reviewed: Inpatient record, Office record and Outpatient record Prescription Management I considered prescription management with: Other Discharge Plan Discharge Clinical Impression: Contusion of forearm, left Qualifiers: Encounter type: initial encounter Qualified Code(s): S50.12XA - Contusion of left forearm, initial encounter Patient Disposition: Home, Self-Care Instructions: Contusion in Adults (ED) Additional Instructions: You were evaluated in the emergency department today after a fall. Your x-ray did not show any evidence of fracture. You will likely feel more sore tomorrow. Rest, ice, and elevate your arm, and resume normal activities as tolerated. We recommend you take 600mg ibuprofen every 6 hours or 650mg Tylenol every 6 hours as needed for pain. If Needed you can alternate these medications as they take 1 medication every 3 hours. For instance at noon take ibuprofen, then at 3:00 p.m. take Tylenol, then at 6:00 p.m. take ibuprofen. You are being prescribed a muscle relaxer which you can take 3 times daily as needed. Do not drink alcohol while taking this medication as it can cause excessive drowsiness. Please schedule an appointment for follow-up with your primary care provider this week. Return to the emergency department if you experience worsening pain, numbness, tingling, change of color in your arm, or any other concerning symptoms. Prescriptions: New cyclobenzaprine 10 mg tablet 10 mg PO TID PRN (Reason: muscle spasm) Qty: 10 0RF No Action ondansetron 4 mg tablet,disintegrating 4 mg PO DAILY PRN (Reason: nausea and vomiting) 5 Days Qty: 7 0RF ciprofloxacin HCl 500 mg tablet 500 mg PO Q12H 10 Days Qty: 20 0RF desog-e.estradiol/e.estradiol 0.15-0.02 mgx21 /0.01 mg x 5 tablet 1 tab PO DAILY Qty: 84 4RF Rx Instructions: start at the beginning of your period Print Language: Japanese
--- OUTSIDE RECORDS SUMMARY | 2024-10-05 19:57 | XMS_ITS | Clinical Summary ---
Author Organization [facility] it Address [address] [place] [address] Care Team Providers Care Customs Guard Name Role Phone Shyam Camilo MD Primary Care Provider Social History Tobacco Use Types Packs/Day Years Used Date Smoking Tobacco: Never Assessed Comments Unknown Sex and Gender Information Value Date Recorded Sex Assigned at Not on file Legal Sex Female 12:16 AM EST Gender Identity Not on file Sexual Orientation Not on file Plan of Treatment Health Maintenance Due Date Last Done Comments DTaP,Tdap,and Td Vaccines (1 - Tdap) 2016 Hepatitis B Vaccines (1 of 3 - 19+ 3-dose series) 2016 Cervical Cancer Screening: P ap Smear 2018 COVID-19 Vaccine ( - 2023-2 5 season) 2023 Influenza Vaccine (#1) 2024 HIB Vaccines Aged Out No longer eligi ble based on patient's age to complete this topic HPV Vaccines Aged Out No longer eligi ble [...] 5 Years) and At-Risk Patients (6 to 49 Years) Aged Out No longer eligible b ased on patient's age to complete this topic RSV Immunization Patients Un ame 20 months Aged Out No longer eligible b ased on patient's age to complete this topic Varicella Vaccines Aged Out No longer eligible based on patient's age to complete this topic Care Teams Customs Guard Relationship Specialty Start Date End Date Shyam Camilo MD [address] [place] [address] Dr [address] LORENE Bryant PCP - General Internal Medicine 01/26/19
--- OUTSIDE RECORDS SUMMARY | 2024-10-05 19:57 | XMS_ITS | Data Portability ---
Author Organization RICARDO Storey shantanu [address] Address [address] [place] [address] Care Team Providers Care Director Speech And Hearing Name Role Phone [facility] Primary Care Provider Assessment No assessment recorded. [...] HOSPITAL/Pharmacy #[id number], [address] [place], [address], 3 12:12:14 Allergy Relief (fluticason e) 50 mcg/actuati on nasal spray,suspe nsion 2022 023 [facility]Pharmacy #[id number], [address] [place], [address], 3 12:12:16 prednisone 50 mg tablet 2022 023 [id number] [address] [place], [address], 3 12:12:15 Patient TargetsNo targets recorded. Patient Instructions Encounter Date Encounter Id Patient Instructions Last Modified By Organization Details Last Modified Time 05/07/2022 [id number] Sinusitis is an infection of the lining [...] care for yourself at home? Take an mffj-aaa-yfsphzl pain medicine. Avoid Ibuprofen, Aleve and Aspirin if . If the doctor prescribed antibiotics, take them as directed. Do not stop taking them just because you feel better. You need to take the full course of antibiotics. Be careful when taking lwwu-pvx-frkgnpb cold or influenza (flu) medicines and Tylenol [...] 3 days can make your congestion worse. [email or web address] Not available 05/07/2022 12:12:11 An ear infection [...] taking a prescription pain medicine, take an whjh-pfb-hsftnkk medicine, such as acetaminophen (Tylenol), ibuprofen (Advil, [...] to take the full course of antibiotics. [email or web address] Not available 05/07/2022 12:12:04 Reason for Referral None Reported. Problems Name Problem SNOMED Code Status Onset Date Resolution Date Notes Provider Name and Address Organization Details Recorded Time Juvenile idiopathic arthritis 442517924 Active 023 RICARDO Oden - [facility] [...] e) 50 mcg/actuati on nasal spray,suspe nsion [place] 1 spray twice a day by intranasa l route as directed for 30 days. 2022 active Not Available Not Available Not Avai lable Vitals Date Recorded Body height Body mass index (BMI) Body weight Body temperature Oxygen saturation Oxygen saturation in Arterial blood by Pulse oximetry Heart rate Respiratory rate Systolic And Diastolic Provider Name and Address Organization Details Last Updated DateTime 3 177.8 cm 38.7 kg/m2 370869. 94 g 97 [degF] 99 % 99 % 71 /min 16 /min 112/76 mm[Hg] TAWNYA GALEANA PA - [facility] 3 11:31:49 Social History Question Answer Notes LastModified by [employer] Details LastModified Time Tobacco Smoking Status Never Smoker TAWNYA GALEANA null, [place] - [facility] 05/07/2022 11:29:50 Have You Recently Traveled Abroad? No [email or web address] Information not available 05/07/2022 Sex: Unknown Functional Status Question Answer Note LastModified by [employer] Details LastModified Time Do you use any illicit or recreational drugs? No [email or web address] Information not available 05/07/2022 Do you or have you ever used any other forms of tobacco or nicotine? No [email or web address] Information not available 05/07/2022 What is your level of alcohol consumption? None [email or web address] Information not available 05/07/2022 Mental Status None recorded. Family History Relationship Description Onset Age of this Age Resolved Age Notes LastModified by Organization Details LastModified Time Father No current problems or disability [email or web address] Not available 05/07 11:29:36 Mother No current problems or disability [email or web address] Not available 05/07 11:29:36 Medical History No medical history recorded. Gynecological HistoryNo gynecological history recorded. Obstetrics History GPAL:G 0 P 0 0 0 0 Past Encounters Encounter ID Performer Location Encounter Start Date Encounter Closed Date Diagnosis/Indication Diagnosis SNOMED-CT Code Diagnosis ICD10 Code Diagnosis Note [id number] [address] [place] [address] 05/25/2016 10:55:52 05/25/2016 11:21:50 [id number] [address] [place] [address] 07/16/2016 08:20:23 07/16/2016 08:43:19 [id number] [address] [place] [address] 11/27/2020 14:01:38 11/27/2020 16:58:27 [id number] [address] [place] [address] 06/16/2018 18:47:09 06/16/2018 20:03:36 [id number] [address] [place] [address] 01/30/2018 13:30:27 01/30/2018 14:53:11 [id number] [address] [place] [address] 09/28/2016 16:55:09 09/28/2016 17:41:15 [id number] [address] [place] [address] 07/01/2020 09:02:55 07/01/2020 10:14:57 [id number] [address] [place] [address] 09/26/2017 18:47:00 09/26/2017 19:23:54 [id number] [address] [place] [address] 05/19/2016 08:53:42 05/19/2016 09:27:15 [id number] [address] [place] [address] 05/19/2017 10:54:25 05/19/2017 11:42:49 [id number] [address] [place] [address] 04/29/2020 15:29:57 04/29/2020 16:44:42 [id number] [address] [place] [address] 07/07/2018 15:54:47 07/07/2018 16:35:31 [id number] [address] [place] [address] 11/08/2017 09:19:35 11/08/2017 10:11:36 [id number] [address] [place] [address] 05/04/2016 08:39:49 05/04/2016 08:59:15 [id number] Louis Song NP [address] [place] [address] 05/07/2022 10:40:02 05/07/2022 12:19:34 Acute bilateral otitis media [id number] H66.93 Health Concerns Section Related Observation LastModified by Organization Detai ls LastModified Time None Recorded Concern Status LastModified by Organization Details LastModified Time None Recorded Advance Directives Directive None Recorded Payers Insurance Date Sequence Insurance Name Policy Number Policy Goodman Covered Member ID Goodman Member ID Guarantor Name 05/07/2022 1 [facility] NET PLAN (MEDICAID HMO) [place] Yuneiry E Tobias [id number] Yuneiry E Tobias Notes Date Note Type [...] Song NP [address] [place], [address], [place] - [facility] 05/07/2022 12:13:45 OBGyn Episode No OBEpisode recorded.
[2024-10-05 20:23] VITALS: BP 122/68; PULSE 86; RESP 16; TEMP 36.2; O2SAT 99
== END 2024-10-05 20:23 | disposition home or self-care (01) ==
PROVIDERS: Emergency Provider Emergency Medicine; PCP Family Medicine
DX: S50.12XA Contusion of left forearm, initial encounter (principal); R20.0 Anesthesia of skin; R51.9 Headache, unspecified; M79.632 Pain in left forearm; M54.2 Cervicalgia; X50.1XXA Overexertion from prolonged static or awkward postures, initial encounter; Y93.51 Activity, roller skating (inline) and skateboarding; Y92.89 Other specified places as the place of occurrence of the external cause; Y99.8 Other external cause status
CPT/HCPCS: 73090; 99282; 99283

== ENCOUNTER → 2024-10-05 18:24 | Outpatient (BNV) | payer OTHER, SELFPAY | PROVIDERS: Emergency Provider Emergency Medicine; Visit Provider Nuclear Medicine | DX: M79.632 Pain in left forearm (principal) | CPT/HCPCS: 73090 ==

== ENCOUNTER 2024-10-19 10:35 | Outpatient (REF) | payer OTHER, SELFPAY ==
[2024-10-19 14:08] LABS: Bacterial Vaginosis PCR NEGATIVE (Negative); Candida Group PCR NOT DETECTED (Not Detect); Candida glab krusei PCR NOT DETECTED (Not Detect); Trichomonas vaginalis PCR NOT DETECTED (Not Detect)
[2024-10-19 14:40] LABS: CT PCR NOT DETECTED (Not Detect.); NG PCR NOT DETECTED (Not Detect.)
== END 2024-10-19 10:36 | disposition home or self-care (01) ==
LOC: HO.LNP 10:35
PROVIDERS: PCP Family Medicine; Visit Provider Advanced Practice Midwife
DX: N92.1 Excessive and frequent menstruation with irregular cycle (principal); N64.4 Mastodynia; Z11.8 Encounter for screening for other infectious and parasitic diseases; Z11.2 Encounter for screening for other bacterial diseases; Z79.899 Other long term (current) drug therapy; Z79.890 Hormone replacement therapy
CPT/HCPCS: 81025; 81515; 87491; 87591; 99212

== ENCOUNTER 2024-10-19 10:35 | Outpatient (AMB) | payer OTHER, SELFPAY ==
--- NOTE | 2024-10-19 10:37 | MHC.OFFVIS ---
Vital Signs 10/19/24 10:41 Height 5 ft 10 in BP 124/76 Blood Pressure Location Rt brachial Position Sitting Intake Visit Reasons: AUB Intake Note: September 20 started bleeding bright red small amt and continues . Takes ocp. Patient did state she missed one day of taking pill and doubled up on the next day at the beginning of this month Photography And Prints Curator Required: No Information Interpreted: non-clinical & clinical Sales Manager [place]: Sales Manager [place] Present (Berta) Accompanied by: Self / Same As Patient Allergies No Known Allergies (No Known Allergies*) Allergy (Verified 10/19/24 10:44) Medication List - Last Reconciled 10/19/24 by Althea Talbert, EFE cyclobenzaprine 10 mg PO TID PRN desog-e.estradiol/e.estradiol 0.15-0.02 mgx21 /0.01 mg x 5 1 tab PO DAILY ondansetron 4 mg PO DAILY PRN 5 days Is last menstrual period known: Yes Last menstrual period: 09/20/24 Post menopausal: No Patient : No Do you need a note to return to daycare/school/sports/work: No HPI Comments Details: Patient is here today due to concerns of vaginal bleeding since 09/20/2024, daily, light volume. She admits to missing 1pill of control and doubled up. Using continual pill packs. UPT is negative today. Using one light pad per day. Additionally patient reports her left breast has kind of a weird pain all over since her missed pill. She denies any injuries to the breast, nipple discharge, or prior biopsies or lumps. [facility] Medical History Breast pain Breakthrough bleeding on control pills Irregular bleeding Tremors of nervous system Arthritis Morbid obesity BMI 38.0-38.9,adult Abdominal pain Juvenile arthritis Surgical History No pertinent past surgical history Family History Father Unknown family medical history Mother No problems noted. 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 Current occupational exposures/hazards: No Sexual orientation: Straight/Heterosexual Cognitive needs: No Hearing needs: No Vision needs: Yes Female Reproductive History Menstrual Age of Menarche: 15 Date of last menstrual period: 09/20/24 control method: pills Total pregnancies: 1 Number of Living Children: 1 Date of last pap smear: 08/04/24 History of abnormal pap smear: No Review of Systems Const All systems reviewed & are unremarkable except as noted in HPI and below Reports no additional complaints Skin/Breast Reports system reviewed and no additional complaints, except as documented and Reports as per HPI Physical Exam Vital Signs: Last Vital Signs BP 124/76 10/19/24 10:41 Const General: cooperative, healthy appearing and no acute distress Orientation/consciousness: patient oriented x3 Chest Breast/axilla inspection: normal inspection of the breasts and normal inspection of the axillae Breast/axilla palpation: normal palpation of the breasts GI Inspection: Yes normal to inspection Palpation (GI): Soft to palpation and Other GI palpation findings present (Nontender) Rectal Exam - Female: visual inspection normal General: Yes bladder normal to palpation External Female Exam: normal appearance of the urethra Speculum Exam - Vagina: normal appearance of the vagina, normal palpation, normal vaginal discharge and vaginal bleeding (Small amount of red) Speculum Exam - Cervix: normal appearance of the cervix and normal palpation Bimanual exam- vagina & uterus: normal bimanual exam, normal palpation, uterine size normal, bladder normal to palpation, normal palpation, uterine shape normal and non-tender Bimanual Exam- Adnexa, other: normal adnexae OB/external & speculum: vaginal bleeding (Small amount of red) Skin General skin exam: no rashes or lesions noted Neuro General: patient oriented x3 Results AMB Test Urine AMB Test Urine Negative Last Edit by Althea Talbert LPN on 10/19/24 10:53 Results Reviewed Results Reviewed: Laboratory Last Values Tst Clinic Negative 10/19/24 10:52 Assessment & Plan Assessment & Plan (1) Breakthrough bleeding on control pills: Code(s): N92.1 - Excessive and frequent menstruation with irregular cycle Category: Medical Plan: Discuss workup to include cervical cultures today, and a pelvic ultrasound. Follow up pending results in office. Advised to call with any heavy prolonged bleeding episodes. May consider taking 1 week off with the pills to reset, use a backup method advised. The patient expressed understanding and agreement with the plan of care. All of her questions and concerns were addressed to the best of my ability. (2) Breast pain: Code(s): N64.4 - Mastodynia Category: Social Hx Plan Reassured normal breast exam today. Monitor discomfort if increases to notify the office. Most likely hormonal cause. Can recheck at next visit or sooner if indicated. The patient expressed understanding and agreement with the plan of care. All of her questions and concerns were addressed to the best of my ability. Orders: Orders AMB HCG Urine Test Today Z32.02 - Encounter for test, result negative CT NG by PCR Vag/Cerv Today N93.9 - Abnormal uterine and vaginal bleeding, unspecified Bacterial Vaginosis Panel Today N93.9 - Abnormal uterine and vaginal bleeding, unspecified US pelvic and transvaginal Today N92.6 - Irregular menstruation, unspecified Coding Level of Care Code Est Pt Level 3 (29887) Diagnoses Breakthrough bleeding on control pills N92.1 Breast pain N64.4
[2024-10-19 10:41] VITALS: BP 124/76
--- OUTSIDE RECORDS SUMMARY | 2024-10-19 11:17 | XMS_ITS | Clinical Summary ---
Author Organization [facility] Address [address] [place] [address] Care Team Providers Care High School Assistant Principal Name Role Phone Shyam Camilo MD Primary [...] Vaccine ( - 2023-2 5 season) 2023 Depression Screening 03/22/2024 Influenza Vaccine (#1) 2024 HIB Vaccines Aged [...] age to complete this topic Care Teams High School Assistant Principal Relationship Specialty Start Date End Date Shyam Camilo MD [address] [place] [address] Dr [address] LORENE Bryant PCP - General Internal Medicine 01/26/19
== END 2024-10-19 11:44 | disposition home or self-care (01) ==
LOC: HO.HWS 10:35
PROVIDERS: PCP Family Medicine; Visit Provider Advanced Practice Midwife
DX: N92.1 Excessive and frequent menstruation with irregular cycle (principal); N64.4 Mastodynia; Z32.02 Encounter for pregnancy test, result negative
CPT/HCPCS: 99213

== ENCOUNTER 2024-12-01 12:41 | Outpatient (REF) | payer OTHER, SELFPAY ==
--- NOTE | ~2024-12-01 | US_ITS ---
EXAMINATION: US PELVIS CLINICAL INFORMATION: Irregular menstruation COMPARISON: September 26, 2017 TECHNIQUE: Ultrasound of the pelvis is performed using both transabdominal and transvaginal transducers along with Doppler. Transvaginal imaging is performed due to inadequate visualization transabdominally. FINDINGS: Uterus: The uterus is anteversion flexion and measures 7 x 2 x 4 cm. The endocervical canal demonstrates a 9 mm irregular ovoid shaped abnormality at the body cervix junction without gross flow on color Doppler interrogation. The double wall endometrial thickness is 2 mm. No gross uterine fibroids in the body or fundus. Normal echotexture. Adnexa: The left ovary is not identified.. The right ovary is identified with flow on color Doppler interrogation. No free fluid in the cul-de-sac. Right ovary measures 2 x 2 x 2 cm. Volume: 5 cc. No gross solid or cystic lesion. US/US pelvic and transvaginal IMPRESSION: Questionable 9 mm submucosal polyp, uterine body cervix junction. Right ovary is normal. Left ovary is not identified. No free fluid in the cul-de-sac. Electronically signed by: Louis Nuñez MD 12/01/2024 02:18 PM EDT
--- OUTSIDE RECORDS SUMMARY | 2024-12-01 15:03 | XMS_ITS | Clinical Summary ---
[facility] Address [address] [place] [address] Care Team Providers Care Coconut Jelly Roller Name Role Phone Shyam Camilo MD Primary [...] Cervical Cancer Screening: P ap Smear 2018 Depression Screening 03/22/2024 COVID-19 Vaccine ( - 2023-2 5 season) 2024 Influenza Vaccine (#1) 2024 HIB Vaccines Aged [...] age to complete this topic Care Teams Coconut Jelly Roller Relationship Specialty Start Date End Date Shyam Caimlo MD [address] [place] [address] Dr [address] LORENE Bryant PCP - General Internal Medicine 01/26/19
== END 2024-12-01 12:42 | disposition home or self-care (01) ==
LOC: HO.US 12:41
PROVIDERS: PCP Nurse Practitioner Family; Visit Provider Advanced Practice Midwife
DX: N92.6 Irregular menstruation, unspecified (principal)
CPT/HCPCS: 76830; 76856

== ENCOUNTER → 2024-12-01 12:42 | Outpatient (BNV) | payer OTHER, SELFPAY | PROVIDERS: PCP Nurse Practitioner Family; Visit Provider Radiology Diagnostic Radiology | DX: N84.1 Polyp of cervix uteri (principal) | CPT/HCPCS: 76830; 76856 ==

== ENCOUNTER 2024-12-11 13:43 | Outpatient (AMB) | payer OTHER, SELFPAY ==
--- NOTE | 2024-12-11 13:47 | A.OFFVIS_ITS ---
Vital Signs 12/11/24 13:50 Height 5 ft 10 in Weight 277 lb 12.519 oz BMI 39.9 BP 124/60 Blood Pressure Location Lt brachial Position Sitting Pulse 78 Intake Visit Reasons: Abdominal pain/ Crohn's Intake Note: Meghan presents in the office as a new patient for abdominal pains and Crohns. CC: She states that she has pains in the stomach and had diarrhea - she states in the ED she was diagnosed with crohns. Pains are all over in the stomach. Barrel Lapper Required: No Allergies No Known Allergies (No Known Allergies*) Allergy (Verified 12/11/24 13:51) HPI Comments Details: 29 y.o F with PMH of juvenile arthritis (used to be at [facility]) who is here for longstanding abd diarrhea. Has relpasing remitting hx of lower abd pain assoc with nausea and diarrhea x1 year. Up to 3-4 loose BM per day during a flare up. No blood in stool. Also reports hx of juvenile arthritis - used to be with [facility]. Mostly has small joint pain in hands on left side. Does not correlate with abd sx. Not on any therapy. NO fam hx of IBD or CRC. Was seen in the emergency room earlier this year for the same symptoms. CT abdomen and pelvis at that time showed right-sided colitis, as well as wall thickening in distal ileum. She also had prominent retroperitoneal and mesenteric lymphadenopathy. Due to concern for underlying Crohn's disease, she has been referred to Gastroenterology. [facility] Medical History Breast pain Breakthrough bleeding on control pills Irregular bleeding Tremors of nervous system Arthritis Morbid obesity BMI 38.0-38.9,adult Abdominal pain Juvenile arthritis Surgical History No pertinent past surgical history Family History Father Unknown family medical history Mother No problems noted. 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 Current occupational exposures/hazards: No Sexual orientation: Straight/Heterosexual Cognitive needs: No Hearing needs: No Vision needs: Yes Female Reproductive History Menstrual Age of Menarche: 15 Review of Systems Const All systems reviewed & are unremarkable except as noted in HPI and below Physical Exam Exam Exam: No apparent distress Nonicteric Abdomen soft, nondistended Alert and oriented x3, normal gait Vital Signs: Last Vital Signs Pulse 78 12/11/24 13:50 BP 124/60 12/11/24 13:50 BMI result Body Mass Index 39.9 Assessment & Plan Assessment & Plan (1) Abdominal pain: Code(s): R10.9 - Unspecified abdominal pain Category: Medical (2) Diarrhea: Code(s): R19.7 - Diarrhea, unspecified Category: Medical Qualifiers: Diarrhea type: presumed infectious Qualified Code(s): R19.7 - Diarrhea, unspecified (3) Morbid obesity: Code(s): E66.01 - Morbid (severe) obesity due to excess calories Category: Medical (4) Juvenile idiopathic arthritis: Code(s): M08.80 - Other juvenile arthritis, unspecified site Category: Medical Plan Overall presentation highly suspicious underlying inflammatory bowel disease, especially in the background of juvenile idiopathic arthritis. Most likely Crohn's, given small bowel involvement on CT scan. Plan: -labs ordered as below -hepatitis serology and T spot also ordered in anticipation of needing a biologic in the future. -EGD and colonoscopy to be scheduled for histological evaluation -PEG prep Rxed and instructions reviewed. Handout provided as well. -rheumatology referral placed for NITIN Follow up after scopes Orders: Orders Complete Blood Count no Diff Today R10.9 - Unspecified abdominal pain, R19.7 - Diarrhea, unspecified Comprehensive Met. Panel Today R10.9 - Unspecified abdominal pain, R19.7 - Diarrhea, unspecified Ferritin Today R10.9 - Unspecified abdominal pain, R19.7 - Diarrhea, unspecified Hepatitis B Core Antibody Today R10.9 - Unspecified abdominal pain, R19.7 - Diarrhea, unspecified Hepatitis B Surface Antibody Today R10.9 - Unspecified abdominal pain, R19.7 - Diarrhea, unspecified Calprotectin, Fecal Today R10.9 - Unspecified abdominal pain, R19.7 - Diarrhea, unspecified Immunoglobulin A Today R10.9 - Unspecified abdominal pain, R19.7 - Diarrhea, unspecified Transglutaminase IgA Today R10.9 - Unspecified abdominal pain, R19.7 - Diarrhea, unspecified T Spot TB Today R10.9 - Unspecified abdominal pain, R19.7 - Diarrhea, unspecified Hepatitis A IgG Today R10.9 - Unspecified abdominal pain, R19.7 - Diarrhea, unspecified Hepatitis B Surface Antigen Today R10.9 - Unspecified abdominal pain, R19.7 - Diarrhea, unspecified Hepatitis C Antibody Today R10.9 - Unspecified abdominal pain, R19.7 - Diarrhea, unspecified C Reactive Protein Today R10.9 - Unspecified abdominal pain, R19.7 - Diarrhea, unspecified HIV Ab/Ag Today R10.9 - Unspecified abdominal pain, R19.7 - Diarrhea, u nspecified TSH reflex Free T4 Today R10.9 - Unspecified abdominal pain, R19.7 - Diarrhea, unspecified Vitamin D 25-OH Total Today R10.9 - Unspecified abdominal pain, R19.7 - Diarrhea, unspecified Vitamin B12 and Folate Today R10.9 - Unspecified abdominal pain, R19.7 - Diarrhea, unspecified Referrals Rheumatology Referral M08.80 - Other juvenile arthritis, unspecified site GI Procedure Notification R10.9 - Unspecified abdominal pain, R19.7 - Diarrhea, unspecified Medications: New peg 3350-electrolytes 236-22.74-6.74 -5.86 gram (Golytely) as per split prep instructions, until fecal effluent is clear 240 mL PO Q10M 4,000 mL 0RF colonoscopy Coding Level of Care Code New Pt Level 5 (89272) Complex EM visit Add On G2211 Diagnoses Abdominal pain R10.9 Diarrhea of presumed infectious origin R19.7 Diarrhea type: presumed infectious Morbid obesity E66.01 Juvenile idiopathic arthritis M08.80
[2024-12-11 13:50] VITALS: BP 124/60; PULSE 78; BMI 39.9
--- OUTSIDE RECORDS SUMMARY | 2024-12-11 16:11 | XMS_ITS | Clinical Summary ---
Author Organization [facility] Address [address] [place] [address] Care Team Providers Care Community Associate Name Role Phone Shyam Camilo MD Primary Care Provider
== END 2024-12-11 14:20 | disposition home or self-care (01) ==
LOC: HO.HGI 13:44
PROVIDERS: PCP Nurse Practitioner Family; Visit Provider Internal Medicine
DX: M08.80 Other juvenile arthritis, unspecified site (principal); R10.9 Unspecified abdominal pain; R19.7 Diarrhea, unspecified; E66.9 Obesity, unspecified; Z68.39 Body mass index [BMI] 39.0-39.9, adult
CPT/HCPCS: 99204

== ENCOUNTER → 2024-12-11 13:43 | Outpatient (BNVA) | payer OTHER, SELFPAY | PROVIDERS: PCP Nurse Practitioner Family; Visit Provider Internal Medicine | DX: E66.01 Morbid (severe) obesity due to excess calories (principal); M08.80 Other juvenile arthritis, unspecified site; R10.9 Unspecified abdominal pain; R19.7 Diarrhea, unspecified | CPT/HCPCS: 99202 ==

== ENCOUNTER 2024-12-29 09:29 | Outpatient (REF) | payer OTHER, SELFPAY ==
[2024-12-29 10:26] LABS: Hematocrit 40.7 % (37.0-47.0); Hemoglobin 12.5 g/dl (12.0-16.0); Mean Corpuscular HGB Conc 30.7 g/dl (31.0-35.0); Mean Corpuscular Hemoglobin 23.6 pg (27.0-33.0); Mean Corpuscular Volume 76.9 fL (80.0-98.0); NRBC Abs Auto 0.000 X10*3/uL (0.0-0.012); NRBC Pct Auto 0.0 /100WBC (0.0-0.2); Platelet Count 211 X10*3/uL (160-400); Red Blood Count 5.29 X10*6/uL (4.20-5.50); White Blood Count 6.5 X10*3/uL (4.8-10.8)
[2024-12-29 11:12] LABS: Alanine Aminotransferase 12 U/L (0-31); Albumin Level 3.9 g/dL (3.5-5.0); Alkaline Phosphatase 92 U/L (39-117); Anion Gap 10 (12-20); Aspartate Amino Transferase 19 U/L (5-31); Blood Urea Nitrogen 9 mg/dL (9-16); Calcium 9.3 mg/dL (8.4-10.2); Carbon Dioxide 25 mmol/L (22-29); Chloride 110 mmol/L (96-108); Estimated Glomerular Filt Rate > 60; Potassium 3.8 mmol/L (3.3-5.1); Sodium 141 mmol/L (135-145); Total Protein 7.2 g/dL (6.5-8.0)
[2024-12-29 11:30] LABS: Folate 6.5 ng/mL (> or = 4.0); Vitamin B12 341 pg/mL (200-900)
[2024-12-29 11:35] LABS: Ferritin 36 ng/mL (10-122)
[2024-12-29 12:23] LABS: HBS Num1 4.65 mIU/mL (0-7.99); HBc Num1 0.06 S/CO (0.00-0.79); HBsAGNum1 0.58 S/CO (0.00-0.99); HIV Num 1 0.06 S/CO (0.00-0.99); Hepatitis B Surface Antigen Negative (Negative); ~HepC Num1 0.08 S/CO (0.00-0.79); ~Hepatitis A Antibody IgG 0.52 S/CO (0.00-0.99); ~Hepatitis B Surface Antibody NONREACTIVE (Nonreactive); ~Hepatitis C Antibody Nonreactive (Nonreactive)
[2024-12-30 09:12] LABS: Immunoglobulin A 148 mg/dL (47-310)
[2025-01-01 11:24] LABS: TS Negative Control Passed; TS Panel A 0; TS Panel B 0; TS Positive Control Passed; TSpotTB Negative (Negative)
== END 2024-12-29 09:30 | disposition home or self-care (01) ==
LOC: HO.LAB 09:29
PROVIDERS: Absent Provider Internal Medicine; PCP Nurse Practitioner Family; Visit Provider Nurse Practitioner Family
DX: Z11.4 Encounter for screening for human immunodeficiency virus [HIV] (principal); Z11.59 Encounter for screening for other viral diseases; Z11.1 Encounter for screening for respiratory tuberculosis; Z01.84 Encounter for antibody response examination; R10.9 Unspecified abdominal pain; R19.7 Diarrhea, unspecified
CPT/HCPCS: 36415; 80053; 82306; 82607; 82728; 82746; 82784; 84443; 85027; 86140; 86364; 86481; 86704; 86706; 86708; 86803; 87340; 87389

== ENCOUNTER 2025-01-02 07:56 | Day surgery (SDC) | payer OTHER, SELFPAY ==
--- OUTSIDE RECORDS SUMMARY | 2024-12-13 15:18 | XMS_ITS | Clinical Summary ---
Author Organization [facility] Address [address] [place] [address] Care Team Providers Care Braille Coder Name Role Phone Shyam Camilo MD Primary [...] age to complete this topic Care Teams Braille Coder Relationship Specialty Start Date End Date Shyam Camilo MD [address] [place] [address] Dr [address] LORENE Bryant PCP - General Internal Medicine 01/26/19
[2024-12-28 10:29] VITALS: BMI 39.9
--- NOTE | 2024-12-29 09:00 | P.CONAN_ITS ---
Documented by User: Johnna Cross NP 12/29/24 09:00 HPI - Anesthesia Eval Consult details Narrative: 29yo F for Upper Endoscopy and Colonoscopy PMFSH Active Problems Active Problems: All Active Problems Juvenile idiopathic arthritis (Acute) Breast pain (Acute) Breakthrough bleeding on control pills (Acute) Irregular bleeding (Acute) Encounter for screening examination for sexually transmitted disease (Acute) Well woman exam with routine gynecological exam (Acute) Pap smear for cervical cancer screening (Acute) Elevated AST (SGOT) (Acute) Low HDL (under 40) (Acute) Iron deficiency anemia (Acute) Normal physical examination, routine (Acute) Laboratory tests ordered as part of a complete physical exam (CPE) (Acute) ADHD, adult residual type (Acute) Obesity (Acute) Cardiomegaly (Acute) Vitamin D deficiency (Acute) Vitamin A deficiency (Acute) Morbid obesity (Acute) Diarrhea (Acute) Encounter for vitamin deficiency screening (Acute) Return to work evaluation (Acute) Normal physical exam (Acute) Anemia (Acute) Bleeding hemorrhoid (Acute) UTI (urinary tract infection) (Acute) Immunization counseling (Acute) Seasonal allergies (Acute) TMJ arthralgia (Acute) Headache (Acute) Abnormal menstruation (Acute) Abdominal pain (Acute) Juvenile arthritis (Acute) Past Medical History Medical History Breast pain Breakthrough bleeding on control pills Irregular bleeding Tremors of nervous system Arthritis Morbid obesity BMI 38.0-38.9,adult Abdominal pain Juvenile arthritis Family History Family History Father Unknown family medical history Mother No problems noted. Unknown Breast cancer Maternal Grandfather Diabetes High blood pressure High cholesterol Surgical History Surgical History No pertinent past surgical history Social History Social History Household Members Other:: single Housing: House Alcohol intake: never Patient Tobacco Use Status: Never used Tobacco e-Cigarette/Vaping Use: Never Used Second Hand Smoke Exposure: No Have you been hit, kicked, punched, or otherwise hurt by someone within the past year? 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 Current occupational exposures/hazards: No Sexual orientation: Straight/Heterosexual Cognitive needs: No Hearing needs: No Vision needs: Yes Meds Allergies Allergy/AdvReac Type Severity Reaction Status Date / Time No Known Allergies (No Known Allergy Verified 12/11/24 13:51 Allergies*) Exam Height,Weight and Vital Signs: Height 5 ft 10 in Weight 125.999 kg Assessment and Plan Assessment Anesthesia Assessment: Chart Reviewed Documented by User: Zeb Beltran MD 01/02/25 10:00 PMFSH Past Medical History Medical History Breast pain Breakthrough bleeding on control pills Irregular bleeding Tremors of nervous system Arthritis Morbid obesity BMI 38.0-38.9,adult Abdominal pain Juvenile arthritis Family History Family History Father Unknown family medical history Mother No problems noted. Unknown Breast cancer Maternal Grandfather Diabetes High blood pressure High cholesterol Family history of problems with anesthesia: No Surgical History Surgical History No pertinent past surgical history History of Problems with Anesthesia: No Social History Social History Household Members Other:: single Housing: House Alcohol intake: never Patient Tobacco Use Status: Never used Tobacco e-Cigarette/Vaping Use: Never Used Second Hand Smoke Exposure: No Have you been hit, kicked, punched, or otherwise hurt by someone within the past year? 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 Current occupational exposures/hazards: No Sexual orientation: Straight/Heterosexual Cognitive needs: No Hearing needs: No Vision needs: Yes Meds Allergies Allergy/AdvReac Type Severity Reaction Status Date / Time No Known Allergies (No Known Allergy Verified 12/11/24 13:51 Allergies*) Exam Exam Date and Time: 01/02/25 Airway Mallampati Class: I TM Dist: >3cm Neck ROM: Full Heart: rrr Lungs: ctab vesicular Assessment and Plan Assessment Anesthesia Assessment: Anesthesia Plan Discussed Final Anesthetic Review Family History of Problems with Anesthesia: No History of Problems with Anesthesia: No NPO: Yes ASA Class: II Final Preanesthetic Review: No Changes in Pt Med Stat, Meds/Allgs Chart Reviewed, Consent Obtained/Reviewed and Anes Risks/Benef Reviewed Patient Risk: Low Procedure Risk: Low Anesthetic Plan Anesthetic Plan: MAC: Disposition: Standard PACU
[2025-01-02 08:38] LABS: UPreg QC Valid YES
[2025-01-02 08:54] VITALS: BP 120/80; PULSE 70; RESP 16; TEMP 36.4; O2SAT 98; BMI 40.3
[2025-01-02] MEDS: Lactated Ringers 1,000 ML 100 ML IVCONT (09:04)
--- NOTE | 2025-01-02 09:04 | MHC.SHP ---
Pre-Procedural Eval Section A - 24 Hr Update-Section A only Date of Service: 01/02/25 The patient is an INPATIENT: No The patient has been examined within 24 hours of the surgical procedure. The History & Physical has been completed within 30 days and I have reviewed it.: Yes Section B - Complete if H&P > 30 days Chief Complaint: Unspecified abdominal pain,diarrhea Allergies: Allergies Allergy/AdvReac Type Severity Reaction Status Date / Time No Known Allergies (No Known Allergy Verified 12/11/24 13:51 Allergies*) Plan Diagnosis/Plan: Unchanged I have reviewed the history and physical and performed a pertinent physical examination on my patient. No changes have occurred unless specified. Time Spent With Patient Time: Total time managing care of this patient today ____ minutes.
--- NOTE | 2025-01-02 10:28 | P.OPN-COLO_ITS ---
Colonoscopy Operative Note Operative Note Date of Service: 01/02/25 Narrative: Procedure: Upper endoscopy and colonoscopy Indication: Abd pain, chronic diarrhea Endoscopist: Minnie Gardiner MD Anesthesia Provider: Dr Zeb Beltran Anesthesia type: MAC Instrument: [id number]-H190 and [id number]-[id number] EGD Procedure:?? The procedure, indications, preparation and potential complications were reviewed with the patient, who indicated understanding and gave written informed consent to proceed. The endoscope was introduced through the mouth, and advanced to the 2nd part of the duodenum. The mucosa was carefully examined on slow withdrawal of the endoscope. The patient tolerated the procedure well. There were no immediate complications.? EGD Findings:? * Esophagus:? Normal esophageal mucosa was noted. The Z-line was at 40 cm. * Stomach:? Normal gastric mucosa. Retroflexion was performed in the cardia. Random cold forceps biopsies were taken from the stomach. * Duodenum:? Normal duodenal mucosa. Cold forceps biopsies were taken from the duodenal bulb and 2nd portion of the duodenum to rule out celiac sprue. Colonoscopy Procedure:? The patient was then turned for the colonoscopy. A digital rectal exam was performed which was abnormal for stool in rectal vault.? A distal attachment cap was affixed to the tip of the scope and the colonoscope was then inserted through the anus and advanced through the sigmoid colon with solid stool present throughout precluding exam. Limitations: Poor prep. Findings: Mucosa: Not visualized. Solid stool present to the extent examined. Impression: 1. Normal esophagus 2. Normal stomach (biopsy) 3. Normal duodenum (biopsy) 4. Poor prep - incomplete colonoscopy Recommendations:?? * Follow-up path results * Avoid NSAIDs * Repeat colonoscopy to be booked. Recommend bisaocodyl 10 mg BID and miralax BID x 2 days prior to the colonoscopy followed by CLD and PEG prep 1 day before.
[2025-01-02 10:31] VITALS: BP 104/59; PULSE 75; RESP 10; TEMP 36.2; O2SAT 97
[2025-01-02 10:46] VITALS: BP 108/67; PULSE 69; RESP 18; TEMP 36.1; O2SAT 100
== END 2025-01-02 11:05 | disposition home or self-care (01) ==
PROVIDERS: Nurse Practitioner; PCP Nurse Practitioner Family; Visit Provider Internal Medicine
PROC: (CPT 45330; principal; 2025-01-02 10:10)
DX: R19.7 Diarrhea, unspecified (principal); R10.9 Unspecified abdominal pain; E66.01 Morbid (severe) obesity due to excess calories; Z53.8 Procedure and treatment not carried out for other reasons
CPT/HCPCS: 45330; 43239; 81025; 88305; 88313; 88342; J2003; J2704; J3010

== ENCOUNTER → 2025-01-02 07:56 | Outpatient (BNV) | payer OTHER, SELFPAY | PROVIDERS: PCP Nurse Practitioner Family; Visit Provider Internal Medicine | DX: R10.9 Unspecified abdominal pain (principal); K52.9 Noninfective gastroenteritis and colitis, unspecified; Z91.199 Patient's noncompliance with other medical treatment and regimen due to unspecified reason | CPT/HCPCS: 43239; 45378 ==

== ENCOUNTER 2025-01-25 07:52 | Outpatient (REF) | payer OTHER, SELFPAY ==
[2025-01-25 16:21] LABS: Bacterial Vaginosis PCR NEGATIVE (Negative); Candida Group PCR DETECTED (Not Detect); Candida glab krusei PCR NOT DETECTED (Not Detect); Trichomonas vaginalis PCR NOT DETECTED (Not Detect)
[2025-01-26 04:10] LABS: CT PCR NOT DETECTED (Not Detect.); NG PCR NOT DETECTED (Not Detect.)
== END 2025-01-25 07:53 | disposition home or self-care (01) ==
LOC: HO.LNP 07:52
PROVIDERS: PCP Nurse Practitioner Family; Visit Provider Advanced Practice Midwife
DX: N93.9 Abnormal uterine and vaginal bleeding, unspecified (principal); N84.0 Polyp of corpus uteri; N76.0 Acute vaginitis; Z20.2 Contact with and (suspected) exposure to infections with a predominantly sexual mode of transmission
CPT/HCPCS: 81515; 87491; 87591; 99212

== ENCOUNTER 2025-01-25 07:52 | Outpatient (AMB) | payer OTHER, SELFPAY ==
--- OUTSIDE RECORDS SUMMARY | 2025-01-25 07:56 | XMS_ITS | Data Portability ---
Author Organization RICARDO Storey [facility] [address] Address [address] [place] [address] Care Team Providers Care Radial Drill Press Set Up Operator Name Role Phone [facility] Primary Care Provider [phone] Assessment No assessment recorded. Plan of Treatment Reminders Order Date Submit Date Provider Last Modified By Organization Details Last Modified Time Details Appointments None recorded. Lab None recorded. Referral None recorded. Procedures None recorded. Surgeries None recorded. Imaging None recorded. Medication Orders amoxicillin 875 mg-potassiu m clavulanate 125 mg tablet 2022 023 [facility]/Pharmacy #[id number], [address] [place], [address], 3 12:12:14 Allergy Relief (fluticason e) 50 mcg/actuati on nasal spray,suspe nsion 2022 023 [facility]/Pharmacy #[id number], [address] [place], [address], 3 12:12:16 prednisone 50 mg tablet 2022 023 [id number] [address] [place], [address], 3 12:12:15 Patient TargetsNo targets recorded. Patient Instructions Encounter Date Encounter Id Patient Instructions Last Modified By Organization Details Last Modified Time 05/07/2022 [id number] Sinusitis is an infection of the lining [...] care for yourself at home? Take an bpnz-rib-sbqdgtv pain medicine. Avoid Ibuprofen, Aleve and Aspirin if . If the doctor prescribed antibiotics, take them as directed. Do not stop taking them just because you feel better. You need to take the full course of antibiotics. Be careful when taking allk-qyr-rklmbhj cold or influenza (flu) medicines and Tylenol [...] taking a prescription pain medicine, take an aldn-pxr-cikmaej medicine, such as acetaminophen (Tylenol), ibuprofen (Advil, [...] Organization Details Recorded Time Juvenile idiopathic arthritis [id number] Active 023 RICARDO Oden - [facility] [...] e) 50 mcg/actuati on nasal spray,suspe nsion Wendel 1 spray twice a day by intranasa [...] Updated DateTime 3 177.8 cm 38.7 kg/m2 238560. 94 g 97 [degF] 99 % 99 % 71 /min 16 /min 112/76 mm[Hg] TAWNYA GALEANA PA - [facility] 3 11:31:49 Social History Question Answer Notes LastModified by [employer] Details LastModified Time Tobacco Smoking Status Never Smoker TAWNYA GALEANA null, [place] - [facility] 05/07/2022 11:29:50 Have You Recently Traveled Abroad? No [email or web address] Information not available 05/07/2022 Sex: Unknown Functional Status Question Answer Note LastModified by [employer] Details LastModified Time Do you use any illicit or recreational drugs? No [email or web address] Information not available 05/07/2022 Do you or have you ever used any other forms of tobacco or nicotine? No Information not available 05/07/2022 What is your level of alcohol consumption? None [email or web address] Information not available 05/07/2022 Mental Status None recorded. Family History Relationship Description Onset Age of this Age Resolved Age Notes LastModified by Organization Details LastModified Time Father No current problems or disability [email or web address] Not available 05/07 11:29:36 Mother No current problems or disability [email or web address] Not available 05/07 11:29:36 Medical History No medical history recorded. Gynecological HistoryNo gynecological history recorded. Obstetrics History GPAL:G 0 P 0 0 0 0 Past Encounters Encounter ID Performer Location Encounter Start Date Encounter Closed Date Diagnosis/Indication Diagnosis SNOMED-CT Code Diagnosis ICD10 Code Diagnosis IMO Codes Diagnosis Note [id number] [address] [place] [address] 05/25/2016 10:55:52 05/25/2016 11:21:50 [id number] [address] [place] [address] 07/16/2016 08:20:23 07/16/2016 08:43:19 [id number] [address] [place] [address] 11/27/2020 14:01:38 11/27/2020 16:58:27 [id number] [address] [place] [address] 06/16/2018 18:47:09 06/16/2018 20:03:36 [id number] [address] [place] [address] 01/30/2018 13:30:27 01/30/2018 14:53:11 [id number] [address] [place] [address] 09/28/2016 16:55:09 09/28/2016 17:41:15 [id number] [address] [place] [address] 07/01/2020 09:02:55 07/01/2020 10:14:57 [id number] [address] [place] [address] 09/26/2017 18:47:00 09/26/2017 19:23:54 [id number] [address] [place] [address] 05/19/2016 08:53:42 05/19/2016 09:27:15 [id number] [address] [place] [address] 05/19/2017 10:54:25 05/19/2017 11:42:49 [id number] [address] [place] [address] 04/29/2020 15:29:57 04/29/2020 16:44:42 [id number] [address] [place] [address] 07/07/2018 15:54:47 07/07/2018 16:35:31 [id number] [address] [place] [address] 11/08/2017 09:19:35 11/08/2017 10:11:36 [id number] [address] [place] [address] 05/04/2016 08:39:49 05/04/2016 08:59:15 [id number] Louis Song NP [address] [place] [address] 05/07/2022 10:40:02 05/07/2022 12:19:34 Acute bilateral otitis media [id number] H66.93 Health Concerns Section Related Observation LastModified by Organization Detai ls LastModified Time None Recorded Concern Status LastModified by Organization Details LastModified Time None Recorded Advance Directives Directive None Recorded Payers Insurance Date Sequence Insurance Name Policy Number Policy Goodman Covered Member ID Goodman Member ID Guarantor Name 05/07/2022 1 [facility] NET PLAN (MEDICAID HMO) [employer] Yuneiry E Tobias [id number] Yuneiry E Tobias Notes Date Note Type Note Provider Name and Address Organization Details Recorded Time 05/07/2022 text/html Ear Pain Brief HPIReported by PatientHPIFor location, patient reportspain radiates to neckbut reportsbilateral. For quality, patient reportsthrobbing pain,aching pain, andsharp pain. For context, patient reportsrecent uri. For associated symptoms, patient reportscough,nasal congestion,hearing loss, andsense of fullness/pressure. For onset/timing, patient reportsconstant painandgradual onset. For duration, patient reportsoccurs dailyandsensation/epis ode variable length. For severity, patient reportsgetting worseandcurrent pain 5/10. For alleviating factors, patient reportsototopical antibiotics: ___andnasal steroid spray. For aggravating factors, patient reportssinus infectionsandallergies . CongestionReported by Patientnasal congestion with post nasal drip x 3 days. denies nay fever or fever with chills. no SOB or respiratory distress. Louis Song NP [address] [place], [address], [place] - [facility] 05/07/2022 12:13:45 OBGyn Episode No OBEpisode recorded.
--- OUTSIDE RECORDS SUMMARY | 2025-01-25 07:56 | XMS_ITS | Clinical Summary ---
[facility] Organization [facility] Address [address] [place] [address] Care Team Providers Care Stock Layer Name Role Phone Shyam Camilo MD Primary [...] P ap Smear 2018 Depression Screening 03/22/2024 HPV Vaccines (1 - 3-dose SCD M series) 2024 COVID-19 Vaccine ( - 2023-2 5 season) 2024 Influenza Vaccine (#1) 2024 RSV Immunization Adult Patie nts (1 - 1-dose 75+ series) 2072 HIB Vaccines Aged Out No longer eligi [...] age to complete this topic Care Teams Stock Layer Relationship Specialty Start Date End Date Shyam Camilo MD [address] [place] [address] [address] LORENE Bryant PCP - General Internal Medicine 01/26/19
--- NOTE | 2025-01-25 07:59 | A.OFFVIS_ITS ---
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 History of breakthrough bleeding on control pills despite compliance. Today she reports vaginal burning itching and discharge. She denies any pelvic pain or urinary symptoms. [facility] Medical History Breast pain Breakthrough bleeding on control pills Irregular bleeding Tremors of nervous system Arthritis Morbid obesity BMI 38.0-38.9,adult Abdominal pain Juvenile arthritis Surgical History No pertinent past surgical history Family History Father Unknown family medical history Mother No problems noted. 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 Current occupational exposures/hazards: No Sexual orientation: Straight/Heterosexual Cognitive needs: No Hearing needs: No Vision needs: Yes Female Reproductive History Menstrual Age of Menarche: 15 control method: pills Date of last pap smear: 08/04/24 Review of Systems Const All systems reviewed & are unremarkable except as noted in HPI and below Physical Exam Const General: cooperative, healthy appearing and no acute distress Orientation/consciousness: patient oriented x3 GI Inspection: Yes normal to inspection Palpation (GI): Soft to palpation and Other GI palpation findings present (Nontender) Rectal Exam - Female: visual inspection normal General: Yes bladder normal to palpation External Female Exam: normal appearance of the urethra and erythema Speculum Exam - Vagina: normal appearance of the vagina, normal palpation and abnormal vaginal discharge (Thick) white Speculum Exam - Cervix: normal appearance of the cervix and normal palpation Bimanual exam- vagina & uterus: normal bimanual exam, normal palpation, uterine size normal, bladder normal to palpation, normal palpation, uterine shape normal and non-tender Bimanual Exam- Adnexa, other: normal adnexae Neuro General: patient oriented x3 Results Reviewed Results Reviewed: [address] [address] Ultrasound Report Signed Patient: Meghan Tobais MR#: [id number] : 1995 Acct:[id number] Age/Sex: 29 / F ADM Date: 12/01/24 Loc: . Attending Dr: Lurdes Momin CNM Ordering Physician: Lurdes Momin CNM Date of Service: 12/01/24 Procedure(s): US pelvic and transvaginal Accession Number(s): [id number] cc: Lurdes Momin CNM; Qian Briggs [facility]~ Reason for Exam: N92.6 - Irregular menstruation, unspecified EXAMINATION: US PELVIS CLINICAL INFORMATION: Irregular menstruation COMPARISON: September 26, 2017 TECHNIQUE: Ultrasound of the pelvis is performed using both transabdominal and transvaginal transducers along with Doppler. Transvaginal imaging is performed due to inadequate visualization transabdominally. FINDINGS: Uterus: The uterus is anteversion flexion and measures 7 x 2 x 4 cm. The endocervical canal demonstrates a 9 mm irregular ovoid shaped abnormality at the body cervix junction without gross flow on color Doppler interrogation. The double wall endometrial thickness is 2 mm. No gross uterine fibroids in the body or fundus. Normal echotexture. Adnexa: The left ovary is not identified.. The right ovary is identified with flow on color Doppler interrogation. No free fluid in the cul-de-sac. Right ovary measures 2 x 2 x 2 cm. Volume: 5 cc. No gross solid or cystic lesion. US/US pelvic and transvaginal IMPRESSION: Questionable 9 mm submucosal polyp, uterine body cervix junction. Right ovary is normal. Left ovary is not identified. No free fluid in the cul-de-sac. Electronically signed by: Louis Nuñez MD 12/01/2024 02:18 PM EDT RP Dictated By: Louis Dolan MD Signed By: <Electronically signed by Louis Allison MD in OV> 12/01/24 1418 DD/ 1312 TD/TT: 12/01/24 1346 Salvage Grinder: Assessment & Plan Assessment & Plan (1) Abnormal uterine bleeding (AUB): Code(s): N93.9 - Abnormal uterine and vaginal bleeding, unspecified Plan: History of breakthrough bleeding on control pills. (2) Endometrial polyp: Code(s): N84.0 - Polyp of corpus uteri Plan: Discussed: Ultrasound findings- IMPRESSION: Questionable 9 mm submucosal polyp, uterine body cervix junction. Right ovary is normal. Left ovary is not identified. No free fluid in the cul-de-sac. Recommended hysteroscopy for removal of possible endometrial polyp and to rule out any other abnormal tissue findings such as atypia, hyperplasia, precancer or cancer. Anticipatory guidance reviewed for hysteroscopy procedure including NPO, anesthesia, designated driver sales. Appointment for consult with Dr. Hutton to be made to discuss procedure. The patient expressed understanding and agreement with the plan of care. All of her questions and concerns were addressed to the best of my ability. (3) Acute vaginitis: Code(s): N76.0 - Acute vaginitis Plan Skin Care Instructions: Clean with warm water, no soaps, scented products. Use a cool cloth to the area several times a day if swollen and/or uncomfortable. Wear loose, cotton underclothes, avoid tight outer clothing. Air when possible. No coitus until well healed. Complete all medications as prescribed. Await final pending results for any changes in the plan of care. Call the office if there is no improvement in 24-48hrs., or if worsening symptoms. Rx to be sent to pharmacy today. The patient expressed understanding and agreement with the plan of care. All of her questions and concerns were addressed to the best of my ability. Total time I personally spent on visit and management today: ?35 minutes. Time spent included review of pertinent office notes in the electronic health record; review of laboratory and imaging results; review of personal family medical history; performing physical exam; discussing diagnosis and plan of care with the patient; documenting the encounter in the EMR. This note is constructed using voice recognition software. While every effort has been made to ensure accuracy, medical staff assistant errors may have been included. Orders: Orders CT NG by PCR Vag/Cerv Today N76.0 - Acute vaginitis, Z11.3 - Encounter for screening for infections with a predominantly sexual mode of transmission Bacterial Vaginosis Panel Today Z11.3 - Encounter for screening for infections with a predominantly sexual mode of transmission Medications: New clotrimazole-betamethasone 1-0.05 % apply externally a thin coat to the area 1 appl topical BID 45 grams 0RF itching 7 days terconazole 0.4% 1 appful vaginal BEDTIME 45 grams 0RF 7 days clotrimazole-betamethasone 1-0.05 % apply externally a thin coat to the area 1 appl topical BID 45 grams 0RF itching 7 days Coding Level of Care Code Est Pt Level 4 (01995) Diagnoses Abnormal uterine bleeding (AUB) N93.9 Endometrial polyp N84.0 Acute vaginitis N76.0
== END 2025-01-25 08:20 | disposition home or self-care (01) ==
LOC: HO.HWS 07:52
PROVIDERS: PCP Nurse Practitioner Family; Visit Provider Advanced Practice Midwife
DX: N93.9 Abnormal uterine and vaginal bleeding, unspecified (principal); N84.0 Polyp of corpus uteri; N76.0 Acute vaginitis
CPT/HCPCS: 99214

== ENCOUNTER 2025-02-23 08:36 | Outpatient (REF) | payer OTHER, SELFPAY ==
[2025-02-23 13:18] LABS: MANUAL DIFF FLAG NO
[2025-02-23 13:34] LABS: Hematocrit 40.0 % (37.0-47.0); Hemoglobin 12.1 g/dl (12.0-16.0); Imm Gran Abs Auto 0.03 X10*3/uL (0.00-0.03); Imm Gran Pct Auto 0.4 % (0.0-0.4); Lymphocytes Absolute Auto 3.0 X10*3/uL (1.2-4.9); Mean Corpuscular HGB Conc 30.3 g/dl (31.0-35.0); Mean Corpuscular Hemoglobin 23.6 pg (27.0-33.0); Mean Corpuscular Volume 78.1 fL (80.0-98.0); NRBC Abs Auto 0.000 X10*3/uL (0.0-0.012); NRBC Pct Auto 0.0 /100WBC (0.0-0.2); Platelet Count 267 X10*3/uL (160-400); Red Blood Count 5.12 X10*6/uL (4.20-5.50); White Blood Count 7.9 X10*3/uL (4.8-10.8)
[2025-02-23 14:09] LABS: Erythrocyte Sedimentation Rate 30 MM/HR (0-20)
[2025-02-23 17:17] LABS: Alanine Aminotransferase 19 U/L (0-31); Albumin Level 4.1 g/dL (3.5-5.0); Alkaline Phosphatase 89 U/L (39-117); Anion Gap 9 (12-20); Aspartate Amino Transferase 25 U/L (5-31); Blood Urea Nitrogen 16 mg/dL (9-16); Calcium 9.5 mg/dL (8.4-10.2); Carbon Dioxide 28 mmol/L (22-29); Chloride 111 mmol/L (96-108); Estimated Glomerular Filt Rate > 60; Potassium 4.4 mmol/L (3.3-5.1); Sodium 144 mmol/L (135-145); Total Protein 7.6 g/dL (6.5-8.0)
== END 2025-02-23 08:37 | disposition home or self-care (01) ==
LOC: HO.HKASLDS 08:36
PROVIDERS: PCP Nurse Practitioner Family; Visit Provider Student in an Organized Health Care Education/Training Program
DX: M79.7 Fibromyalgia (principal); M08.80 Other juvenile arthritis, unspecified site; Z79.899 Other long term (current) drug therapy
CPT/HCPCS: 36415; 80053; 85025; 85652; 86140; 99202

== ENCOUNTER 2025-02-23 08:36 | Outpatient (AMB) | payer OTHER, SELFPAY ==
--- NOTE | 2025-02-23 08:49 | MHC.OFFVIS ---
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 Triage Technician Required: No Accompanied by: Self / Same As Patient Allergies No Known Allergies (No Known Allergies*) Allergy (Verified 02/23/25 08:54) Medication List - Last Reconciled 02/23/25 by Anay King MD clotrimazole-betamethasone 1-0.05 % 1 appl topical BID 7 days clotrimazole-betamethasone 1-0.05 % 1 appl topical BID 7 days desog-e.estradiol/e.estradiol 0.15-0.02 mgx21 /0.01 mg x 5 1 tab PO DAILY terconazole 0.4% 1 appful vaginal BEDTIME 7 days HPI Comments Details: Patient is a 29-year-old female presenting for evaluation of worsening joint pain. - She reports a history of juvenile idiopathic arthritis diagnosed at age 13 or 14 but states she never received any medication or follow-up care for this condition. - Her last visit with a dolly operator was at age 13. - She describes progressively worsening pain over the years, which she has been managing with Tylenol. - The pain affects her legs and is generalized, involving all my bones. - More recently, she has noticed her hand becoming stiff with prolonged writing and weakness where her hand gives up when holding objects. - The patient does not report any other current medical conditions and is not taking any regular medications. - Her family history for autoimmune disease is unknown. [facility] Medical History (Updated 02/23/25 @ 13:46 by Anay King MD) Fibromyalgia Breast pain Breakthrough bleeding on control pills Irregular bleeding Tremors of nervous system Arthritis Morbid obesity BMI 38.0-38.9,adult Abdominal pain Surgical History No pertinent past surgical history Family History Father Unknown family medical history Mother No problems noted. 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 - Reports hand stiffness with activity and hand weakness. - Denies morning stiffness. - Reports pain is exacerbated by cold weather. - Skin: Denies rashes. All other systems reviewed and are unremarkable except noted above Physical Exam Exam Exam: Vital signs reviewed Physical Examination CONSTITUITIONAL Patient alert and cooperative. Well appearing and in no apparent painful distress MSK Hands Right Hand: Able to make a fist. No swelling or tenderness to palpation of the MCPs, PIPs or DIPs. No deformities noted. Left Hand: Able to make a fist. No swelling or tenderness to palpation of the MCPs, PIPs or DIPs. No deformities noted. Wrists Right Wrist: Full ROM to flexion and extension. No swelling or TTP Left Wrist: Full ROM to flexion and extension. No swelling or TTP Elbows Right Elbow: Full ROM. No swelling or TTP. TTP of the medial epicondyle. TTP of the lateral epicondyle Left Elbow: Full ROM. No swelling or TTP. TTP of the medial epicondyle. No TTP of the lateral epicondyle Shoulders Right shoulder: Full ROM. No swelling noted. No TTP of the AC joint. No TTP of the subacromial bursa. No TTP of the posterior shoulder Left shoulder: Full ROM. No swelling noted. No TTP of the AC joint. No TTP of the subacromial bursa. No TTP of the posterior shoulder Hip bursa: Tenderness to palpation bilaterally Knees Right knee: Full ROM. No swelling noted. No TTP of the knee joint line. TTP of pes anserine bursa Left knee: Full ROM. No swelling noted. No TTP of the knee joint line. TTP of pes anserine bursa. Ankles Right ankle: Good ankle dorsiflexion and plantar flexion. No swelling. No TTP of the ankle joint Left ankle: Good ankle dorsiflexion and plantar flexion. No swelling. No TTP of the ankle joint Feet Right foot: Negative squeeze test Left foot: Negative squeeze test Tender points? Tenderness to palpation of the bilateral trapezius, supraspinatus, anterior costochondral junctions, bilateral suboccipital muscle insertions SKIN No rashes Vital Signs: Last Vital Signs Pulse 79 02/23/25 08:55 BP 130/74 02/23/25 08:55 Pulse Ox 98 02/23/25 08:55 Oxygen Delivery Method Room Air 02/23/25 08:55 BMI result Body Mass Index 41.6 Results Reviewed Results Reviewed: Laboratory Tests 12/29/24 02/23/25 09:48 09:58 WBC 7.9 RBC 5.12 Hgb 12.1 Hct 40.0 Plt Count 267 D ESR Pending Sodium 141 Potassium 3.8 Chloride 110 H Carbon Dioxide 25 BUN 9 Creatinine 0.65 AST 19 ALT 12 C-Reactive Protein 3.64 H 25-OH Vitamin D Total 41.5 Laboratory Tests 10/20/18 13:26 Rheumatoid Factor < 15.0 Cycl Citrul Peptide IgG <16 HUMBLE Screen Negative Laboratory Tests 12/29/24 09:48 Hepatitis A IgG Ab Nonreactive Hep Bs Antigen Negative Hep Bs Antibody NONREACTIVE Hep B Core Total Ab Nonreactive Hepatitis C Ab (EIA) Nonreactive HIV 1&2 Ab/P24 Ag 4thGn Nonreactive TB Test (T-Spot) Com Negative Assessment & Plan Assessment & Plan (1) Juvenile idiopathic arthritis: Code(s): M08.80 - Other juvenile arthritis, unspecified site Category: Medical Plan: #NITIN Patient is a 29-year-old female with a previous history of NITIN here today to reestablish care with Rheumatology after worsening joint pain over the past several years While fibromyalgia accounts for most symptoms, her wrist pain and significantly elevated C-reactive protein (CRP) suggest a component of mild inflammatory arthritis, possibly rheumatoid arthritis (seronegative based on the negative RF/CCP). The decision was made to start with a nonsteroidal anti-inflammatory drug (NSAID) rather than immunosuppression. This approach was chosen because her RA component is mild, and immunosuppressants would offer minimal benefit for her primary fibromyalgia pain while carrying significant side effects. Plan includes initiating meloxicam to target the hand pain. Baseline x-rays of the hands, wrists, and knees will be obtained. Baseline labs, including liver function, kidney function, and inflammatory markers, will be rechecked. She will follow up in 3 months, with repeat labs ordered for 1-2 days before the appointment. Plan - Meloxicam 15mg daily - Check labs today: CBC, CMP, ESR, CRP - XRs bilateral hands, wrists and knees - RTC 3 months - Labs before visit: CBC, CMP, ESR, CRP (2) Fibromyalgia: Code(s): M79.7 - Fibromyalgia Category: Medical Plan: #Fibromyalgia The patient's predominant symptoms of generalized, whole-body pain are more aligned with fibromyalgia than inflammatory arthritis. The pathophysiology was explained as a dysregulation in the body's receptors, causing non-painful stimuli to be interpreted as pain. Discussed that fibromyalgia is difficult to treat as it involves normal neural pathways. A TENS machine was mentioned as a potential option to help retrain the stimuli, although it is not always effective. Plan I spent 45 minutes reviewing the record and labs, taking a history, examining the patient, discussing the treatment plan, ordering diagnostic work up and documenting in the medical record Orders: Orders XR hand LT min 3V Today M08.80 - Other juvenile arthritis, unspecified site XR wrist RT min 3V Today M08.80 - Other juvenile arthritis, unspecified site XR wrist LT min 3V Today M08.80 - Other juvenile arthritis, unspecified site Complete Blood Count Auto Diff 3 Months Z79.899 - Other residential (current) drug therapy Comprehensive Met. Panel 3 Months Z79.899 - Other residential (current) drug therapy C Reactive Protein 3 Months Z79.899 - Other residential (current) drug therapy Erythrocyte Sedimentation Rate 3 Months Z79.899 - Other residential (current) drug therapy C Reactive Protein Today Z79.899 - Other dehairing machine tender (current) drug therapy XR hand RT min 3V Today M08.80 - Other juvenile arthritis, unspecified site XR knee RT 3V Today M08.80 - Other juvenile arthritis, unspecified site XR knee LT 3V Today M08.80 - Other juvenile arthritis, unspecified site Complete Blood Count Auto Diff Today Z79.899 - Other dehairing machine tender (current) drug therapy Comprehensive Met. Panel Today Z79.899 - Other residential (current) drug therapy Erythrocyte Sedimentation Rate Today Z79.899 - Other residential (current) drug therapy Medications: New meloxicam 15 mg PO DAILY 90 tabs 1RF M08.80 - Other juvenile arthritis, unspecified site Coding Level of Care Code New Pt Level 4 (38087) Complex visit Add On G2211 Diagnoses Juvenile idiopathic arthritis M08.80 Fibromyalgia M79.7
[2025-02-23 08:55] VITALS: BP 130/74; PULSE 79; O2SAT 98; BMI 41.6
== END 2025-02-23 09:50 | disposition home or self-care (01) ==
LOC: HO.RHES 08:37
PROVIDERS: PCP Nurse Practitioner Family; Visit Provider Student in an Organized Health Care Education/Training Program
DX: M08.80 Other juvenile arthritis, unspecified site (principal); M79.7 Fibromyalgia
CPT/HCPCS: 99204